=== PATIENT | male | born 1940 | race Caucasian/White ===

== ENCOUNTER → 2016-02-20 | Outpatient (CLI) | payer MEDICARE, BC ==
[2016-02-20 07:21] LABS: Basophils % (A) 1 %; CHCM 33.9; Eosinophils # (A) 0.2 k/uL (0-0.7); Eosinophils % (A) 3 %; HCT 37.1 % (39.0-53.0); HDW 2.48; HGB 12.5 gm/dL (13.0-17.5); Luc # (Auto) 0.31; Luc % (Auto) 4; Lymphocytes # (A) 1.1 k/uL (1.0-4.8); Lymphocytes % (A) 14 %; MCH 31.8 pg (25.0-35.0); MCHC 33.6 g/dL (31.0-37.0); MCV 94.8 fL (80.0-100.0); Mean Platelet Volume 7.1; Monocytes # (A) 1.2 k/uL (0-1.0); Monocytes % (A) 16 %; Neutrophils # (A) 4.7 k/uL (1.3-7.7); Neutrophils % (A) 63 %; RBC 3.91 m/uL (4.30-5.90); WBC 7.5 k/uL (3.8-10.6); WBC (Perox) 7.95
[2016-02-20 07:26] LABS: Anion Gap 9 mmol/L; Blood Urea Nitrogen 32 mg/dL (9-20); Calcium 9.5 mg/dL (8.4-10.2); Carbon Dioxide 33 mmol/L (22-30); Chloride 100 mmol/L (98-107); Glucose 103 mg/dL (74-99); Non-African American GFR(MDRD) 58 (>60 ml/min/1.73 sqM); Potassium 4.7 mmol/L (3.5-5.1); Sodium 142 mmol/L (137-145)
[2016-02-20 07:29] LABS: Partial Thromboplastin Time 22.9 sec (22.0-30.0); Prothrombin Time 10.2 sec (9.0-12.0)
[2016-02-20 07:35] LABS: Appearance,Urine Clear (Clear); Bilirubin,Urine Negative (Negative); Glucose,Urine (UA) Negative (Negative); Ketones,Urine Negative (Negative); Leukocyte Esterase,Urine Small (Negative); Mucus,Urine Occasional /hpf; Nitrite,Urine Negative (Negative); PH, Urine 5.5 (5.0-8.0); Particle Count 3556; Protein,Urine Trace (Negative); Specific Gravity,Urine 1.019 (1.001-1.035); Squamous Epithelial Cell,Urine <1 /hpf (0-4); UA Billing (MACRO vs. MICRO) MICRO; Urobilinogen,Urine <2.0 mg/dL (<2.0); WBC,Urine 3 /hpf (0-5)
== END | disposition home or self-care (01) ==
LOC: LABWHC1 06:44
PROVIDERS: ATTEND Internal Medicine
DX: Z01.812 Encounter for preprocedural laboratory examination (principal); I11.9 Hypertensive heart disease without heart failure; J44.9 Chronic obstructive pulmonary disease, unspecified
CPT/HCPCS: 36415; 80048; 81001; 85025; 85610; 85730

== ENCOUNTER 2016-03-04 17:14 | Emergency (ER) | payer MEDICARE, BC ==
[2016-03-04] MEDS ORDERED: IBUPROFEN IV 600 MG in SODIUM CHLORIDE 0.9% 250 ML IV STA (17:15)
[2016-03-04] MEDS ORDERED: ACETAMINOPHEN TAB 500 MG TAB PO STA (17:15)
--- NOTE | 2016-03-04 17:21 | ED ---
General Adult HPI - General Source: RN notes reviewed <Ulysses Burgos - Last Filed: 03/04/16 19:42> <Ulysses Slater - Last Filed: 03/04/16 20:51> - General Stated complaint: Dehydration Time Seen by Provider: 03/04/16 17:14 - History of Present Illness Initial comments: This is a 75-year-old male who presents to the emergency department because he is weak and somewhat lethargic. Patient states he had surgery on his back on Tuesday discharged on Tuesday and since then he hasn't eaten much or drank much and feels much more lethargic. Patient denies any worsening pain. Patient states his back is sore but he does not consider it to be that painful. Patient does take pain medicines that he was sent home with. Patient denies any chest pain difficulty breathing or shortness of breath. Patient denies knowing that he hasn't any fever or chills. Patient denies headache patient denies numbness weakness. Patient denies any lightheadedness dizziness or near syncopal episode. Patient denies abdominal pain patient denies nausea vomiting diarrhea. Patient denies any dysuria hematuria urinary frequency. Patient states he did have a Kendrick catheter in place when he had a surgery however. She states she did have a flu shot. (Ulysses Burgso) - Related Data Home Medications Medication Instructions Recorded Confirmed Albuterol Sulfate [Proair Hfa] 2 puff INHALATION RT-Q6H PRN 07/09/13 11/08/15 Enalapril [Vasotec] 5 mg PO DAILY 07/09/13 11/08/15 Fluticasone/Salmeterol [Advair 1 puff INHALATION RT-BID 07/09/13 11/08/15 500-50 Diskus] Calcium Carbonate/Vitamin D3 1 tab PO TID 09/08/15 11/08/15 [Calcium 600-Vit D3 200 Tablet] Furosemide 40 mg PO DAILY 09/08/15 11/08/15 Multivitamins, Thera [Multivitamin] 1 tab PO DAILY 09/08/15 11/08/15 [place]-3 Fatty Acids/Fish Oil [Fish 1 cap PO DAILY 09/08/15 11/08/15 Oil 1,000 mg Softgel] Vit C/E/Zn/Coppr/Lutein/Zeaxan 1 cap PO BID 09/08/15 11/08/15 [Preservision Areds 2 Softgel] Gabapentin [Neurontin] 300 - 600 mg PO Q8H PRN 11/08/15 11/08/15 Montelukast [Singulair] 10 mg PO HS 11/08/15 11/08/15 Spironolactone [Aldactone] 25 mg PO BID 11/08/15 11/08/15 Tiotropium 18 Mcg/Puff [Spiriva] 1 cap INHALATION RT-DAILY 11/08/15 11/08/15 oxyCODONE-APAP 10-325MG [Percocet 1 tab PO Q6HR PRN 11/08/15 11/08/15 10-325 mg] predniSONE 20 mg PO DAILY 03/04/16 03/04/16 Allergies Allergy/AdvReac Type Severity Reaction Status Date / Time aspirin Allergy Unknown Verified 03/04/16 17:26 Review of Systems ROS Other: All systems not noted in ROS Statement are negative. <Ulysses Burgos - Last Filed: 03/04/16 19:42> ROS Other: All systems not noted in ROS Statement are negative. <Ulysses Slater - Last Filed: 03/04/16 20:51> ROS Statement: Those systems with pertinent positive or pertinent negative responses have been documented in the HPI. Past Medical History Past Medical History: Asthma, COPD, Eye Disorder, GI Bleed, Hyperlipidemia, Hypertension, Osteoarthritis (OA), Pneumonia, Prostate Disorder Additional Past Medical History / Comment(s): Macular degeneration of the eyes, cataract surgery, osteoarthritis, chronic lower back pain, chronic sinus polyp disease, morbid obesity, obstructive sleep apnea severe with an AHI of 75 and he was given CPAP therapy at a pressure of 11 cm of water. He was in the hospital in September 2015 where he was treated for a right olecranon bursitis, peptic ulcer disease with previous history of GI bleed History of Any Multi-Drug Resistant Organisms: None Reported Past Surgical History: Orthopedic Surgery, Prostate Surgery, Tonsillectomy Additional Past Surgical History / Comment(s): Multiple surgeries for nasal polyps, LEFT KNEE ATRHROSCOPY, left total knee arthroplasty, colonoscopy, growth removed from his thumb, correction of a deviated nasal septum, shots in the eye for macular degeneration., Past Anesthesia/Blood Transfusion Reactions: No Reported Reaction Past Psychological History: No Psychological Hx Reported Additional Psychological History / Comment(s): Patient is and he lives with his for 49 years. 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 Only out of the country to go to [place] years ago. No animal exposures. No experience. No current tobacco or alcohol use Smoking Status: Former smoker Past Alcohol Use History: Occasional Past Drug Use History: None Reported - Past Family History Father Family Medical History: COPD Additional Family Medical History / Comment(s): emphysema Mother Additional Family Medical History / Comment(s): osteoporosis, lived to be 94 Son(s) Family Medical History: Cancer Additional Family Medical History / Comment(s): testicular cancer, mentally challenged <Ulysses Burgos - Last Filed: 03/04/16 19:42> General Exam <Ulysses Burgos - Last Filed: 03/04/16 19:42> General appearance: alert, in no apparent distress, lethargic (But arousable), obese Head exam: Present: atraumatic, normocephalic, normal inspection Eye exam: Present: normal appearance, PERRL, EOMI. Absent: scleral icterus, conjunctival injection, periorbital swelling ENT exam: Present: normal exam, mucous membranes moist Neck exam: Present: normal inspection. Absent: tenderness, meningismus, lymphadenopathy Respiratory exam: Present: normal lung sounds bilaterally, wheezes, decreased breath sounds, prolonged expiratory (Right-sided breathing issues). Absent: respiratory distress, rales, rhonchi, stridor Cardiovascular Exam: Present: normal rhythm, tachycardia, normal heart sounds. Absent: systolic murmur, diastolic murmur, rubs, gallop, clicks GI/Abdominal exam: Present: soft, normal bowel sounds. Absent: distended, tenderness, guarding, rebound, rigid Extremities exam: Present: normal inspection, full ROM, normal capillary refill. Absent: tenderness, pedal edema, joint swelling, calf tenderness Back exam: Present: normal inspection Neurological exam: Present: alert, oriented X3, CN II-XII intact Psychiatric exam: Present: normal affect, normal mood Skin exam: Present: warm, dry, intact, normal color. Absent: rash <Ulysses Slater - Last Filed: 03/04/16 20:51> - General Exam Comments Initial Comments: GENERAL: Patient is well-developed and well-nourished. Patient is nontoxic and well- hydrated and is in mild distress. Patient felt extremely warm psychiatric the patient's temperature was 101.2 ENT: Neck is soft and supple. No significant lymphadenopathy is noted. Oropharynx is clear. Moist mucous membranes. Neck has full range of motion without eliciting any pain. EYES: The sclera were anicteric and conjunctiva were pink and moist. Extraocular movements were intact and pupils were equal round and reactive to light. Eyelids were unremarkable. PULMONARY: Unlabored respirations. Good breath sounds bilaterally. No audible rales rhonchi or wheezing was noted. CARDIOVASCULAR: There is a regular rate and rhythm without any murmurs gallops or rubs. ABDOMEN: Soft and nontender with normal bowel sounds. No palpable organomegaly was noted. There is no palpable pulsatile mass. SKIN: Skin is clear with no lesions or rashes and otherwise unremarkable. Around the incision site on the patient's back appears to be swollen there is a lot of area of ecchymosis in the area has a dark reddish hue to it. NEUROLOGIC: Patient is alert and oriented x3. Cranial nerves II through XII are grossly intact. Motor and sensory are also intact. Normal speech, volume and content. Symmetrical smile. MUSCULOSKELETAL: Normal extremities with adequate strength and full range of motion. No lower extremity swelling or edema. No calf tenderness. LYMPHATICS: No significant lymphadenopathy is noted PSYCHIATRIC: Normal psychiatric evaluation. Normal interpersonal interactions appears functionally intact in deals appropriately with others. No signs of depression. No signs of anxiety. 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 ] Respiratory 18 18 Rate Blood Pressure 118/56 91/44 Blood Pressure 93/51 [Right Arm] O2 Sat by Pulse 94 L 93 L 93 L Oximetry - Reevaluation(s) Reevaluation #1: 03/04/16 20:38 On reassessment patient is complaining of mild shortness of breath pulse ox of 88% area on 4 L, will be given prolonged breathing treatment, patient found to have multifocal pneumonia, we'll treat appropriately with antibiotics, [place] cover for possible postop infection (Ulysses Slater) Reevaluation #2: 03/04/16 20:38 Patient getting adequate fluid boluses in regards to blood pressure fever and septic picture. (Ulysses Slater) Reevaluation #3: 03/04/16 20:49 Spoke with [facility] and regarding transfer, there are exceptpatient transfer (Ulysses Slater) Medical Decision Making - Lab Data Result diagrams: 03/04/16 17:35 03/04/16 17:35 <Ulysses Burgos - Last Filed: 03/04/16 19:42> - Lab Data Result diagrams: 03/04/16 17:35 03/04/16 17:35 - Radiology Data Radiology results: report reviewed (Chest x-ray two-view is positive for multifocal right-sided pneumonia, patient does have CT of lumbar spine which shows no abscess but does show soft tissue cellulitis), image reviewed <Ulysses Slater - Last Filed: 03/04/16 20:51> - Medical Decision Making EKG shows normal sinus rhythm at 90 bpm OK interval is on a 38 QRS 98 QT interval 320 QTC is 410 per patient's EKG shows no ST segment elevation or depression or T-wave abdomen is noted. Dr. Slater will be taking over the care of this patient at 7:30 (Ulysses Burgos) 75 male ER for evaluation. The patient is here for evaluation of multiple complaints stemming from mental status and fever. Patient found to have probable polys source infection versus pneumonia, and cellulitis around wound, patient is a postop patient from [facility] where he had a back surgery by Dr. Culver. Patient was transferred back to the hospital for continued evaluation of fever, patient is adequately resuscitated with appropriate IV antibiotics at this time. Patient given prolonged breathing treatment with improvement in breathing and oxygenation (Ulysses Slater) - Lab Data Lab Results 03/04/16 03/04/16 03/04/16 Range/Units 17:35 17:35 17:35 WBC 15.6 H (3.8-10.6) k/uL RBC 3.09 L (4.30-5.90) m/uL Hgb 9.6 L D (13.0-17.5) gm/dL Hct 28.9 L (39.0-53.0) % MCV 93.6 (80.0-100.0) fL MCH 30.9 (25.0-35.0) pg MCHC 33.0 (31.0-37.0) g/dL RDW 13.8 (11.5-15.5) % Plt Count 235 (150-450) k/uL Neutrophils % 91 % Lymphocytes % 1 % Monocytes % 6 % Eosinophils % 0 % Basophils % 1 % Neutrophils # 14.1 H (1.3-7.7) k/uL Lymphocytes # 0.2 L (1.0-4.8) k/uL Monocytes # 0.9 (0-1.0) k/uL Eosinophils # 0.0 (0-0.7) k/uL Basophils # 0.1 (0-0.2) k/uL PT (9.0-12.0) sec INR (<1.1) APTT (22.0-30.0) sec D-Dimer (<0.60) mg/L FEU Sodium 129 L (137-145) mmol/L Potassium 5.6 H (3.5-5.1) mmol/L Chloride 92 L (98-107) mmol/L Carbon Dioxide 21 L (22-30) mmol/L Anion Gap 16 mmol/L BUN 71 H (9-20) mg/dL Creatinine 3.40 H (0.66-1.25) mg/dL Est GFR (MDRD) Af Amer 21 (>60 ml/min/1.73 sqM) Est GFR (MDRD) Non-Af 18 (>60 ml/min/1.73 sqM) Glucose 144 H (74-99) mg/dL Plasma Lactic Acid Cash (0.7-2.0) mmol/L Calcium 11.3 H (8.4-10.2) mg/dL Total Bilirubin 0.5 (0.2-1.3) mg/dL AST 136 H (17-59) U/L ALT 50 (21-72) U/L Alkaline Phosphatase 72 (38-126) U/L Total Creatine Kinase 3967 H (55-170) U/L CK-MB (CK-2) 15.1 H* (0.0-2.4) ng/mL CK-MB (CK-2) Rel Index Troponin I 0.043 H* (0.000-0.034) ng/mL Total Protein 6.4 (6.3-8.2) g/dL Albumin 3.6 (3.5-5.0) g/dL Cortisol 42 ug/dL Urine Color Urine Appearance (Clear) Urine pH (5.0-8.0) Ur Specific [place] (1.001-1.035) Urine Protein (Negative) Urine Glucose (UA) (Negative) Urine Ketones (Negative) Urine Blood (Negative) Urine Nitrate (Negative) Urine Bilirubin (Negative) Urine Urobilinogen (<2.0) mg/dL Ur Leukocyte Esterase (Negative) Urine RBC (0-5) /hpf Urine WBC (0-5) /hpf Ur Squamous Epith Cells (0-4) /hpf Amorphous Sediment (None) /hpf Urine Bacteria (None) /hpf Hyaline Casts (0-2) /lpf Urine Mucus (None) /hpf Influenza Type A RNA (Not Detectd) Influenza Type B (PCR) (Not Detectd) 03/04/16 03/04/16 03/04/16 Range/Units 17:35 18:13 18:20 WBC (3.8-10.6) k/uL RBC (4.30-5.90) m/uL Hgb (13.0-17.5) gm/dL Hct (39.0-53.0) % MCV (80.0-100.0) fL MCH (25.0-35.0) pg MCHC (31.0-37.0) g/dL RDW (11.5-15.5) % Plt Count (150-450) k/uL Neutrophils % % Lymphocytes % % Monocytes % % Eosinophils % % Basophils % % Neutrophils # (1.3-7.7) k/uL Lymphocytes # (1.0-4.8) k/uL Monocytes # (0-1.0) k/uL Eosinophils # (0-0.7) k/uL Basophils # (0-0.2) k/uL PT 10.5 (9.0-12.0) sec INR 1.0 (<1.1) APTT 25.7 (22.0-30.0) sec D-Dimer 2.30 H (<0.60) mg/L FEU Sodium (137-145) mmol/L Potassium (3.5-5.1) mmol/L Chloride (98-107) mmol/L Carbon Dioxide (22-30) mmol/L Anion Gap mmol/L BUN (9-20) mg/dL Creatinine (0.66-1.25) mg/dL Est GFR (MDRD) Af Amer (>60 ml/min/1.73 sqM) Est GFR (MDRD) Non-Af (>60 ml/min/1.73 sqM) Glucose (74-99) mg/dL Plasma Lactic Acid Cash 2.8 H* (0.7-2.0) mmol/L Calcium (8.4-10.2) mg/dL Total Bilirubin (0.2-1.3) mg/dL AST (17-59) U/L ALT (21-72) U/L Alkaline Phosphatase (38-126) U/L Total Creatine Kinase (55-170) U/L CK-MB (CK-2) (0.0-2.4) ng/mL CK-MB (CK-2) Rel Index Troponin I (0.000-0.034) ng/mL Total Protein (6.3-8.2) g/dL Albumin (3.5-5.0) g/dL Cortisol ug/dL Urine Color Yellow Urine Appearance Cloudy (Clear) Urine pH 5.0 (5.0-8.0) Ur Specific [place] 1.016 (1.001-1.035) Urine Protein 1+ H (Negative) Urine Glucose (UA) Negative (Negative) Urine Ketones Negative (Negative) Urine Blood Moderate H (Negative) Urine Nitrate Negative (Negative) Urine Bilirubin Negative (Negative) Urine Urobilinogen <2.0 (<2.0) mg/dL Ur Leukocyte Esterase Negative (Negative) Urine RBC 6 H (0-5) /hpf Urine WBC 3 (0-5) /hpf Ur Squamous Epith Cells <1 (0-4) /hpf Amorphous Sediment Few H (None) /hpf Urine Bacteria Rare H (None) /hpf Hyaline Casts 114 H (0-2) /lpf Urine Mucus Rare H (None) /hpf Influenza Type A RNA (Not Detectd) Influenza Type B (PCR) (Not Detectd) 03/04/16 Range/Units 18:20 WBC (3.8-10.6) k/uL RBC (4.30-5.90) m/uL Hgb (13.0-17.5) gm/dL Hct (39.0-53.0) % MCV (80.0-100.0) fL MCH (25.0-35.0) pg MCHC (31.0-37.0) g/dL RDW (11.5-15.5) % Plt Count (150-450) k/uL Neutrophils % % Lymphocytes % % Monocytes % % Eosinophils % % Basophils % % Neutrophils # (1.3-7.7) k/uL Lymphocytes # (1.0-4.8) k/uL Monocytes # (0-1.0) k/uL Eosinophils # (0-0.7) k/uL Basophils # (0-0.2) k/uL PT (9.0-12.0) sec INR (<1.1) APTT (22.0-30.0) sec D-Dimer (<0.60) mg/L FEU Sodium (137-145) mmol/L Potassium (3.5-5.1) mmol/L Chloride (98-107) mmol/L Carbon Dioxide (22-30) mmol/L Anion Gap mmol/L BUN (9-20) mg/dL Creatinine (0.66-1.25) mg/dL Est GFR (MDRD) Af Amer (>60 ml/min/1.73 sqM) Est GFR (MDRD) Non-Af (>60 ml/min/1.73 sqM) Glucose (74-99) mg/dL Plasma Lactic Acid Cash (0.7-2.0) mmol/L Calcium (8.4-10.2) mg/dL Total Bilirubin (0.2-1.3) mg/dL AST (17-59) U/L ALT (21-72) U/L Alkaline Phosphatase (38-126) U/L Total Creatine Kinase (55-170) U/L CK-MB (CK-2) (0.0-2.4) ng/mL CK-MB (CK-2) Rel Index Troponin I (0.000-0.034) ng/mL Total Protein (6.3-8.2) g/dL Albumin (3.5-5.0) g/dL Cortisol ug/dL Urine Color Urine Appearance (Clear) Urine pH (5.0-8.0) Ur Specific [place] (1.001-1.035) Urine Protein (Negative) Urine Glucose (UA) (Negative) Urine Ketones (Negative) Urine Blood (Negative) Urine Nitrate (Negative) Urine Bilirubin (Negative) Urine Urobilinogen (<2.0) mg/dL Ur Leukocyte Esterase (Negative) Urine RBC (0-5) /hpf Urine WBC (0-5) /hpf Ur Squamous Epith Cells (0-4) /hpf Amorphous Sediment (None) /hpf Urine Bacteria (None) /hpf Hyaline Casts (0-2) /lpf Urine Mucus (None) /hpf Influenza Type A RNA Not Detected (Not Detectd) Influenza Type B (PCR) Not Detected (Not Detectd) Critical Care Time Critical Care Time: Yes Total Critical Care Time: 31 <Ulysses Slater - Last Filed: 03/04/16 20:51> Disposition <Ulysses Burgos - Last Filed: 03/04/16 19:42> - Out of Hospital Transfer - Req. Specs Out of Hospital Transfer - Requested Specifics: Other Emergency Center ( [facility]) <Ulysses Slater - Last Filed: 03/04/16 20:51> Clinical Impression: Altered mental status, Postoperative fever, Delirium due to general medical condition, Nosocomial pneumonia, Rhabdomyolysis, Dehydration, Anemia Disposition: OTHER INSTITUTION NOT DEFINED Condition: Serious Referrals: Al Ramirez MD [Primary Care Provider] - 1-2 days
[2016-03-04 17:58] LABS: Basophils # (A) 0.1 k/uL (0-0.2); Basophils % (A) 1 %; CH 32.2; CHCM 34.6; Eosinophils % (A) 0 %; HCT 28.9 % (39.0-53.0); HDW 2.45; Luc % (Auto) 1; Lymphocytes # (A) 0.2 k/uL (1.0-4.8); Lymphocytes % (A) 1 %; MCH 30.9 pg (25.0-35.0); MCV 93.6 fL (80.0-100.0); Mean Platelet Volume 7.9; Monocytes # (A) 0.9 k/uL (0-1.0); Monocytes % (A) 6 %; Neutrophils # (A) 14.1 k/uL (1.3-7.7); Neutrophils % (A) 91 %; RBC 3.09 m/uL (4.30-5.90); RDW 13.8 % (11.5-15.5); WBC 15.6 k/uL (3.8-10.6); WBC (Perox) 16.42
[2016-03-04 18:00] LABS: HGB 9.6 gm/dL (13.0-17.5)
[2016-03-04 18:07] LABS: Calcium 11.3 mg/dL (8.4-10.2); Potassium 5.6 mmol/L (3.5-5.1); Total Bilirubin 0.5 mg/dL (0.2-1.3); Total Protein 6.4 g/dL (6.3-8.2)
[2016-03-04] MEDS: SODIUM CHLORIDE 0.9% 500 ML IV SCH ×2 (18:15→19:53)
[2016-03-04 18:26] LABS: Creatine Kinase MB 15.1 ng/mL (0.0-2.4); Troponin I 0.043 ng/mL (0.000-0.034)
[2016-03-04 18:37] LABS: Partial Thromboplastin Time 25.7 sec (22.0-30.0); Prothrombin Time 10.5 sec (9.0-12.0)
[2016-03-04 19:00] LABS: Amorphous Sediment,Urine Few /hpf; Appearance,Urine Cloudy (Clear); Bacteria,Urine Rare /hpf; Bilirubin,Urine Negative (Negative); Glucose,Urine (UA) Negative (Negative); Ketones,Urine Negative (Negative); Leukocyte Esterase,Urine Negative (Negative); Mucus,Urine Rare /hpf; Nitrite,Urine Negative (Negative); Particle Count 24123; Protein,Urine 1+ (Negative); RBC,Urine 6 /hpf (0-5); Specific Gravity,Urine 1.016 (1.001-1.035); Squamous Epithelial Cell,Urine <1 /hpf (0-4); UA Billing (MACRO vs. MICRO) MICRO; Urobilinogen,Urine <2.0 mg/dL (<2.0); WBC,Urine 3 /hpf (0-5)
[2016-03-04] MEDS ORDERED: SODIUM CHLORIDE 0.9% 1,000 ML IV ONE (19:05)
[2016-03-04] MEDS ORDERED: PIPERACILLIN-TAZOBACTAM 3.375 GM in DEXTROSE/WATER 1 50ML.BAG IVPB STA (19:23)
[2016-03-04] MEDS ORDERED: VANCOMYCIN 1,500 MG in SODIUM CHLORIDE 0.9% 250 ML IVPB STA (20:00)
[2016-03-04] MEDS ORDERED: IV VANCOMYCIN PER PHARMACY 1 EACH MISC MISCELLANE PRN (20:00)
--- NOTE | 2016-03-04 20:17 | XR ---
EXAMINATION TYPE: XR chest 2V DATE OF EXAM: 03/04/2016 7:31 PM COMPARISON: January 27, 2015 HISTORY: Fever and weakness TECHNIQUE: Frontal and lateral views of the chest are obtained. FINDINGS: There is consolidation throughout the right lung parenchyma, consistent with right-sided m ultifocal pneumonia. Remainder of the lungs appear well-expanded and clear bilaterally. The pleural spaces are negative. The cardiomediastinal silhouette and bones and soft tissues are unremarkable. IMPRESSION: FINDINGS CONSISTENT WITH MULTIFOCAL BRONCHOPNEUMONIA. Would advise six-week follow-up radiographs to prove resolution.
[2016-03-04] MEDS ORDERED: IPRATROPIUM-ALBUTEROL 3 ML NEB INHALATION STA (20:29)
[2016-03-04 20:30] VITALS: TEMP 97.1
[2016-03-04] MEDS ORDERED: SODIUM CHLORIDE 0.9% 1,000 ML IV STA (20:30)
[2016-03-04] MEDS ORDERED: SODIUM CHLORIDE 0.9% 500 ML IV STA (20:30)
[2016-03-04] MEDS ORDERED: SODIUM CHLORIDE 0.9% 2,000 ML IV STA (20:30)
--- NOTE | 2016-03-04 20:47 | CT ---
EXAMINATION TYPE: CT lumbar spine wo con DATE OF EXAM: 03/04/2016 7:54 PM COMPARISON: Prior abdominal pelvic CT November 01, 2015 HISTORY: Lumbar surgery 3 days ago. Fever and pain. CT DLP: 2506.60 mGycm. Automated exposure control for dose reduction was used. TECHNIQUE: Unenhanced CT of the lumbar spine was performed. Bone and soft tissue window settings are submitted as well as coronal and sagittal reconstructions. FINDINGS: THIS REPORT PROCEEDS WITH FINDINGS FROM [id number]: Extending from the dorsal skin surface to the spine is extensive soft tissue swelling and numerous sc attered gas bubbles within the soft tissues. At L3-4, there are 2 left anterior epidural tiny gas bubbles (1-2 mm) and there is a gas bubble anter ior to the exiting left L3 nerve root. The bilateral L4-5 trans pedicle orthopedic hardware appears in anatomic position and is unremarkable . There are no fractures or focal skeletal lesions. There is approximately 3 mm anterior listhesis of L4 upon L5; no other malalignment. There is vacuum disc phenomenon at the L3-4 disc interspace, and the T12-L1 disc interspace. At the posterior lateral margin of the right psoas muscle there are two 2 x 1 cm gas bubbles. The rig ht psoas muscle has the same volume as the left psoas muscle, and the margins of the psoas muscles wi th the retroperitoneal adipose are smoothly defined. There is moderate urinary bladder distention noted, but there is no hydronephrosis or hydroureter. IMPRESSION: 1. SUBCUTANEOUS AND DORSAL SPINAL MUSCULATURE SOFT TISSUE SWELLING AND SUBCUTANEOUS EMPHYSEMA. 2. TWO TINY ANTERIOR EPIDURAL GAS BUBBLES. 3. 2 X 1 CM GAS BUBBLES RELATED TO THE RIGHT PSOAS.
[2016-03-04 21:04] VITALS: RESP 20
[2016-03-04 21:08] VITALS: BP 105/56
[2016-03-04 21:16] VITALS: PULSE 90
== END 2016-03-04 21:20 | disposition other institution (70) ==
LOC: EC 17:14
DX: J95.89 Other postprocedural complications and disorders of respiratory system, not elsewhere classified (principal); Y83.8 Other surgical procedures as the cause of abnormal reaction of the patient, or of later complication, without mention of misadventure at the time of the procedure; Y95 Nosocomial condition; M62.82 Rhabdomyolysis; E86.0 Dehydration; D64.9 Anemia, unspecified; F05 Delirium due to known physiological condition; J45.909 Unspecified asthma, uncomplicated; I10 Essential (primary) hypertension; E78.5 Hyperlipidemia, unspecified; J44.9 Chronic obstructive pulmonary disease, unspecified; Z79.899 Other long term (current) drug therapy; Z79.51 Long term (current) use of inhaled steroids; Z79.52 Long term (current) use of systemic steroids; Z88.6 Allergy status to analgesic agent; Z87.891 Personal history of nicotine dependence
CPT/HCPCS: 96365 ×2; 96367 ×2; 96361 ×2; 99291 ×2; 99283; 94640; 93005; 85379; 36415; 80053; 82533; 82550; 82553; 83605; 84484; 85025; 85610; 85730; 81001; 87040; 87086; 87502; 71020; 72131; J3370; J2543

== ENCOUNTER → 2016-06-26 | Outpatient (CLI) | payer MEDICARE, BC ==
[2016-06-26 08:14] LABS: CH 32.1; CHCM 34.1; HDW 2.56; HGB 12.6 gm/dL (13.0-17.5); MCH 32.2 pg (25.0-35.0); MCV 94.7 fL (80.0-100.0); Mean Platelet Volume 6.8; RBC 3.91 m/uL (4.30-5.90); RDW 14.5 % (11.5-15.5); WBC 7.7 k/uL (3.8-10.6)
[2016-06-26 11:49] LABS: ALT 46 U/L (21-72); AST 21 U/L (17-59); Alkaline Phosphatase 52 U/L (38-126); Anion Gap 10 mmol/L; Blood Urea Nitrogen 25 mg/dL (9-20); Calcium 9.4 mg/dL (8.4-10.2); Carbon Dioxide 31 mmol/L (22-30); Chloride 98 mmol/L (98-107); Cholesterol 191 mg/dL (<200); Glucose 116 mg/dL (74-99); HDL Cholesterol 87 mg/dL (40-60); Non-African American GFR(MDRD) >60 (>60 ml/min/1.73 sqM); Potassium 4.4 mmol/L (3.5-5.1); Sodium 139 mmol/L (137-145); Total Bilirubin 0.3 mg/dL (0.2-1.3); Total Protein 6.5 g/dL (6.3-8.2); Triglycerides 174 mg/dL (<150)
[2016-06-26 12:17] LABS: Prostate Specific Antigen 0.63 ng/mL (0.00-4.00)
== END | disposition home or self-care (01) ==
LOC: LABWHC1 07:31
PROVIDERS: ATTEND Internal Medicine
DX: Z00.00 Encounter for general adult medical examination without abnormal findings (principal); I11.9 Hypertensive heart disease without heart failure; J44.9 Chronic obstructive pulmonary disease, unspecified; E78.2 Mixed hyperlipidemia; K21.0 Gastro-esophageal reflux disease with esophagitis; N40.1 Benign prostatic hyperplasia with lower urinary tract symptoms
CPT/HCPCS: 36415; 80053; 80061; 84153; 84439; 84443; 85027

== ENCOUNTER 2016-07-02 04:30 | Inpatient (IN) | payer MEDICARE, BC ==
[2016-07-02] MEDS ORDERED: ACETAMINOPHEN TAB 325 MG TAB PO STA (04:56)
[2016-07-02 05:08] LABS: Basophils % (A) 0 %; CH 32.6; CHCM 35.8; Eosinophils # (A) 0.1 k/uL (0-0.7); Eosinophils % (A) 1 %; HCT 35.4 % (39.0-53.0); HGB 12.6 gm/dL (13.0-17.5); Luc # (Auto) 0.27; Luc % (Auto) 2; Lymphocytes % (A) 7 %; MCH 32.4 pg (25.0-35.0); MCHC 35.5 g/dL (31.0-37.0); MCV 91.2 fL (80.0-100.0); Mean Platelet Volume 6.5; Monocytes % (A) 7 %; Neutrophils # (A) 12.1 k/uL (1.3-7.7); Neutrophils % (A) 83 %; RBC 3.88 m/uL (4.30-5.90); RDW 14.2 % (11.5-15.5); WBC 14.5 k/uL (3.8-10.6); WBC (Perox) 14.61
[2016-07-02] MEDS: SODIUM CHLORIDE 0.9% 500 ML IV SCH ×2 (05:14→05:15)
[2016-07-02 05:17] LABS: Partial Thromboplastin Time 22.7 sec (22.0-30.0)
[2016-07-02 05:22] LABS: ALT 40 U/L (21-72); AST 22 U/L (17-59); Alkaline Phosphatase 58 U/L (38-126); Anion Gap 13 mmol/L; Blood Urea Nitrogen 25 mg/dL (9-20); Calcium 9.7 mg/dL (8.4-10.2); Carbon Dioxide 28 mmol/L (22-30); Chloride 95 mmol/L (98-107); Glucose 122 mg/dL (74-99); Non-African American GFR(MDRD) >60 (>60 ml/min/1.73 sqM); Potassium 4.3 mmol/L (3.5-5.1); Sodium 136 mmol/L (137-145); Total Bilirubin 0.5 mg/dL (0.2-1.3); Total Protein 6.9 g/dL (6.3-8.2)
--- NOTE | 2016-07-02 05:41 | XR ---
EXAM: XR Chest, 1 View CLINICAL HISTORY: Reason: Fever TECHNIQUE: Frontal view of the chest. COMPARISON: 06/02/16 FINDINGS: Lungs: Low lung volumes. Mild bibasilar atelectasis and chronic changes. Query more focal airspace disease in the right lung base versus accentuated appearance of markings/atelectasis due to low lung volumes and mild patient rotation. Pleural space: Unremarkable. No pneumothorax. Heart: Unremarkable. No cardiomegaly. Mediastinum: Unremarkable. Bones/joints: Unremarkable. IMPRESSION: 1. Low lung volumes. Mild bibasilar atelectasis and chronic changes. 2. Query mild focal airspace disease in the right lung base as described above.
[2016-07-02] MEDS ORDERED: PIPERACILLIN-TAZOBACTAM 3.375 GM in DEXTROSE/WATER 1 50ML.BAG IVPB STA (06:54)
[2016-07-02] MEDS ORDERED: LEVOFLOXACIN 750MG-D5W PMX 750 MG in DEXTROSE/WATER 1 150ML.BAG IVPB STA (06:54)
[2016-07-02] MEDS ORDERED: GABAPENTIN 300 MG CAP PO PRN (06:57)
[2016-07-02] MEDS ORDERED: ALBUTEROL NEBULIZED 2.5 MG/3 ML INHALATION PRN (06:57)
--- NOTE | 2016-07-02 07:31 | ED ---
Fever HPI - General Chief Complaint: Fever Stated Complaint: Fever Time Seen by Provider: 07/02/16 04:56 Source: patient, family () Mode of arrival: ambulatory Limitations: no limitations - History of Present Illness Initial Comments: This patient is 75-year-old man who presents after he developed chills tonight. The patient's also states that for the past couple of days he has had a cough and that he has been less active and having some generalized fatigue and weakness. Patient denies chest pain, dyspnea, palpitations or syncope. No change in urination or bowel movements, including no vomiting or diarrhea, no melena or hematochezia, no urinary frequency or dysuria. The patient's states that the last time he seemed like this he ended up having a pneumonia and sepsis. MD Complaint: fever, weakness -: days(s) Temperature Source: subjective Associated Symptoms: chills, cough - Related Data Home Medications Medication Instructions Recorded Confirmed Albuterol Sulfate [Proair Hfa] 2 puff INHALATION RT-Q6H PRN 07/09/13 07/02/16 Enalapril [Vasotec] 5 mg PO DAILY 07/09/13 07/02/16 Fluticasone/Salmeterol [Advair 1 puff INHALATION RT-BID 07/09/13 07/02/16 500-50 Diskus] Calcium Carbonate/Vitamin D3 1 tab PO TID 09/08/15 07/02/16 [Calcium 600-Vit D3 200 Tablet] Furosemide 40 mg PO DAILY 09/08/15 07/02/16 Multivitamins, Thera [Multivitamin 1 tab PO DAILY 09/08/15 07/02/16 (formulary)] [place]-3 Fatty Acids/Fish Oil [Fish 1 cap PO DAILY 09/08/15 07/02/16 Oil 1,000 mg Softgel] Vit C/E/Zn/Coppr/Lutein/Zeaxan 1 cap PO BID 09/08/15 07/02/16 [Preservision Areds 2 Softgel] Gabapentin [Neurontin] 600 mg PO BID 11/08/15 07/02/16 Montelukast [Singulair] 10 mg PO DAILY 11/08/15 07/02/16 Spironolactone [Aldactone] 25 mg PO BID 10/01/16 05/26/17 Tiotropium 18 Mcg/Puff [Spiriva] 1 cap INHALATION RT-DAILY 11/08/15 07/02/16 oxyCODONE-APAP 10-325MG [Percocet 1 tab PO Q6HR PRN 11/08/15 07/02/16 10-325 mg] Promethaz-Cod 6.25-10 mg/5 ml 5 ml PO Q6HR PRN 07/02/16 07/02/16 [Phenergan with Codeine] predniSONE 10 mg PO DAILY 07/02/16 07/02/16 Previous Rx's Medication Instructions Recorded Albuterol Inhaler [Ventolin Hfa 1 - 2 puff INHALATION Q6HR PRN #30 07/04/16 Inhaler] inhaler Levofloxacin [Levaquin] 750 mg PO QID #28 tab 07/04/16 oxyCODONE HCL/ACETAMINOPHEN 1 tab PO Q8HR PRN #60 tab 07/04/16 [Percocet 10-325 mg] predniSONE 10 mg PO DAILY #90 tab 07/04/16 Allergies Allergy/AdvReac Type Severity Reaction Status Date / Time aspirin Allergy Unknown Verified 07/02/16 07:54 cephalexin Allergy Unknown Verified 07/02/16 07:54 Review of Systems ROS Statement: Those systems with pertinent positive or pertinent negative responses have been documented in the HPI. ROS Other: All systems not noted in ROS Statement are negative. Limitations: ROS unobtainable due to patients medical condition Constitutional: Reports: fever, chills Respiratory: Reports: cough. Denies: dyspnea, hemoptysis Cardiovascular: Denies: chest pain, palpitations, orthopnea, edema, syncope Gastrointestinal: Denies: abdominal pain, nausea, vomiting, diarrhea, melena, hematochezia Genitourinary: Denies: dysuria, hematuria Musculoskeletal: Denies: back pain Skin: Denies: rash Neurological: Reports: weakness (Generalized). Denies: headache, numbness, paresthesias Past Medical History Past Medical History: Asthma, COPD, Eye Disorder, GI Bleed, Hyperlipidemia, Hypertension, Osteoarthritis (OA), Pneumonia, Prostate Disorder Additional Past Medical History / Comment(s): Macular degeneration of the eyes, cataract surgery, osteoarthritis, chronic lower back pain, chronic sinus polyp disease, morbid obesity, obstructive sleep apnea severe with an AHI of 75 and he was given CPAP therapy at a pressure of 11 cm of water. He was in the hospital in September 2015 where he was treated for a right olecranon bursitis, peptic ulcer disease with previous history of GI bleed History of Any Multi-Drug Resistant Organisms: None Reported Past Surgical History: Orthopedic Surgery, Prostate Surgery, Tonsillectomy Additional Past Surgical History / Comment(s): Multiple surgeries for nasal polyps, LEFT KNEE ATRHROSCOPY, left total knee arthroplasty, colonoscopy, growth removed from his thumb, correction of a deviated nasal septum, shots in the eye for macular degeneration., Past Anesthesia/Blood Transfusion Reactions: No Reported Reaction Past Psychological History: No Psychological Hx Reported Additional Psychological History / Comment(s): Patient is and he lives with his for 49 years. 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 Only out of the country to go to [place] years ago. No animal exposures. No experience. No current tobacco or alcohol use Smoking Status: Former smoker Past Alcohol Use History: Occasional Past Drug Use History: None Reported - Past Family History Father Family Medical History: COPD Additional Family Medical History / Comment(s): emphysema Mother Additional Family Medical History / Comment(s): osteoporosis, lived to be 94 Son(s) Family Medical History: Cancer Additional Family Medical History / Comment(s): testicular cancer, mentally challenged General Exam Limitations: no limitations General appearance: alert, in no apparent distress, obese Head exam: Present: atraumatic, normocephalic Eye exam: Present: normal appearance. Absent: scleral icterus, conjunctival injection ENT exam: Present: mucous membranes dry Neck exam: Present: normal inspection, full ROM Respiratory exam: Present: rales (Right base), rhonchi. Absent: respiratory distress, wheezes, stridor, accessory muscle use, decreased breath sounds Cardiovascular Exam: Present: normal rhythm, tachycardia, systolic murmur ( Grade 16 systolic ejection murmur). Absent: diastolic murmur, rubs, gallop GI/Abdominal exam: Present: soft. Absent: distended, tenderness, guarding, rebound, mass Extremities exam: Present: normal inspection, normal capillary refill, pedal edema (Trace edema at the ankles bilaterally). Absent: calf tenderness Back exam: Absent: CVA tenderness (R), CVA tenderness (L) Neurological exam: Present: alert Skin exam: Present: warm, dry, intact, normal color. Absent: rash Course Vital Signs 07/02/16 07/02/16 07/02/16 04:34 05:22 06:05 Temperature 101.4 F H 101.4 F H Pulse Rate 122 H 99 Pulse Rate [ Pulse Oximetery ] Respiratory 20 18 Rate Blood Pressure 119/58 101/65 Blood Pressure [Left Arm] O2 Sat by Pulse 86 L 93 L 92 L Oximetry 07/02/16 07/02/16 07/02/16 06:51 07:09 07:54 Temperature 98.9 F 98.7 F Pulse Rate 98 96 90 Pulse Rate [ Pulse Oximetery ] Respiratory 18 18 20 Rate Blood Pressure 129/67 103/63 108/65 Blood Pressure [Left Arm] O2 Sat by Pulse 92 L 92 L 94 L Oximetry 07/02/16 07:59 Temperature 98.2 F Pulse Rate Pulse Rate [ 90 Pulse Oximetery ] Respiratory 18 Rate Blood Pressure Blood Pressure 109/63 [Left Arm] O2 Sat by Pulse 91 L Oximetry Medical Decision Making - Lab Data Result diagrams: 07/02/16 04:35 07/02/16 04:35 Lab Results 07/02/16 07/02/16 07/02/16 Range/Units 04:35 04:35 04:35 WBC 14.5 H (3.8-10.6) k/uL RBC 3.88 L (4.30-5.90) m/uL Hgb 12.6 L (13.0-17.5) gm/dL Hct 35.4 L (39.0-53.0) % MCV 91.2 (80.0-100.0) fL MCH 32.4 (25.0-35.0) pg MCHC 35.5 (31.0-37.0) g/dL RDW 14.2 (11.5-15.5) % Plt Count 218 (150-450) k/uL Neutrophils % 83 % Lymphocytes % 7 % Monocytes % 7 % Eosinophils % 1 % Basophils % 0 % Neutrophils # 12.1 H (1.3-7.7) k/uL Lymphocytes # 1.0 (1.0-4.8) k/uL Monocytes # 1.0 (0-1.0) k/uL Eosinophils # 0.1 (0-0.7) k/uL Basophils # 0.0 (0-0.2) k/uL PT (9.0-12.0) sec INR (<1.1) APTT (22.0-30.0) sec Sodium 136 L (137-145) mmol/L Potassium 4.3 (3.5-5.1) mmol/L Chloride 95 L (98-107) mmol/L Carbon Dioxide 28 (22-30) mmol/L Anion Gap 13 mmol/L BUN 25 H (9-20) mg/dL Creatinine 1.10 (0.66-1.25) mg/dL Est GFR (MDRD) Af Amer >60 (>60 ml/min/1.73 sqM) Est GFR (MDRD) Non-Af >60 (>60 ml/min/1.73 sqM) Glucose 122 H (74-99) mg/dL Estimated Ave Glu mg/dL mg/dL Hemoglobin A1c (4.2-6.1) % Plasma Lactic Acid Cash 2.8 H* (0.7-2.0) mmol/L Calcium 9.7 (8.4-10.2) mg/dL Total Bilirubin 0.5 (0.2-1.3) mg/dL AST 22 (17-59) U/L ALT 40 (21-72) U/L Alkaline Phosphatase 58 (38-126) U/L Troponin I (0.000-0.034) ng/mL Total Protein 6.9 (6.3-8.2) g/dL Albumin 4.3 (3.5-5.0) g/dL 07/02/16 07/02/16 07/02/16 Range/Units 04:35 04:35 04:35 WBC (3.8-10.6) k/uL RBC (4.30-5.90) m/uL Hgb (13.0-17.5) gm/dL Hct (39.0-53.0) % MCV (80.0-100.0) fL MCH (25.0-35.0) pg MCHC (31.0-37.0) g/dL RDW (11.5-15.5) % Plt Count (150-450) k/uL Neutrophils % % Lymphocytes % % Monocytes % % Eosinophils % % Basophils % % Neutrophils # (1.3-7.7) k/uL Lymphocytes # (1.0-4.8) k/uL Monocytes # (0-1.0) k/uL Eosinophils # (0-0.7) k/uL Basophils # (0-0.2) k/uL PT 10.0 (9.0-12.0) sec INR 1.0 (<1.1) APTT 22.7 (22.0-30.0) sec Sodium (137-145) mmol/L Potassium (3.5-5.1) mmol/L Chloride (98-107) mmol/L Carbon Dioxide (22-30) mmol/L Anion Gap mmol/L BUN (9-20) mg/dL Creatinine (0.66-1.25) mg/dL Est GFR (MDRD) Af Amer (>60 ml/min/1.73 sqM) Est GFR (MDRD) Non-Af (>60 ml/min/1.73 sqM) Glucose (74-99) mg/dL Estimated Ave Glu mg/dL 140 mg/dL Hemoglobin A1c 6.5 H (4.2-6.1) % Plasma Lactic Acid Cash (0.7-2.0) mmol/L Calcium (8.4-10.2) mg/dL Total Bilirubin (0.2-1.3) mg/dL AST (17-59) U/L ALT (21-72) U/L Alkaline Phosphatase (38-126) U/L Troponin I <0.012 (0.000-0.034) ng/mL Total Protein (6.3-8.2) g/dL Albumin (3.5-5.0) g/dL Critical Care Time Critical Care Time: Yes (35 minutes) Disposition Clinical Impression: Sepsis, Pneumonia Disposition: ADMITTED IP TO THIS HOSP Condition: Serious
[2016-07-02 08:51] VITALS: BMI 31.4
[2016-07-02] MEDS ORDERED: predniSONE 20 MG TAB PO SCH (09:00)
[2016-07-02] MEDS ORDERED: NON-FORMULARY DRUG (Omega-3 Fatty Acids/Fish Oil [Fish Oil 1,000 Mg Softgel] 1 CAP) PO SCH (09:00)
[2016-07-02] MEDS: methylPREDNISolone SOD SUCCI 40 MG/ML 1 ML VIAL IV SCH ×2 (10:20→15:55)
[2016-07-02] MEDS: MULTIVITAMINS, THERA 1 EACH TAB PO SCH (10:21)
[2016-07-02] MEDS: FAMOTIDINE 20 MG/2 ML VIAL IV SCH ×2 (10:21→21:48)
[2016-07-02] MEDS: LISINOPRIL 10 MG TAB PO SCH (10:21)
[2016-07-02] MEDS: CALCIUM CARB-VIT D 500MG-200UN 1 EACH TAB PO SCH ×3 (10:21→21:27)
[2016-07-02] MEDS: SPIRONOLACTONE 25 MG TAB PO SCH ×2 (10:21→15:53)
[2016-07-02 11:42] LABS: Glucose,Whole Blood 142 mg/dL (75-99)
[2016-07-02] MEDS: SYMBICORT 160-4.5 MCG INHALER INHALATION SCH ×2 (11:48→20:29)
[2016-07-02] MEDS: TIOTROPIUM 18 MCG/PUFF INHALER INHALATION SCH (11:49)
[2016-07-02 11:58] LABS: Appearance,Urine Clear (Clear); Bilirubin,Urine Negative (Negative); Glucose,Urine (UA) Negative (Negative); Ketones,Urine Negative (Negative); Leukocyte Esterase,Urine Small (Negative); Nitrite,Urine Negative (Negative); PH, Urine 6.5 (5.0-8.0); Particle Count 913; Protein,Urine Trace (Negative); Specific Gravity,Urine 1.017 (1.001-1.035); UA Billing (MACRO vs. MICRO) MICRO; Urobilinogen,Urine <2.0 mg/dL (<2.0); WBC,Urine 3 /hpf (0-5)
[2016-07-02 12:26] LABS: Hemoglobin A1C 6.5 % (4.2-6.1)
[2016-07-02] MEDS: GABAPENTIN 300 MG CAP PO SCH ×2 (13:10→21:27)
[2016-07-02] MEDS: INSULIN LISPRO (humaLOG) 300 UNIT/3 ML VIAL SQ SCH ×3 (13:10→21:27)
--- NOTE | 2016-07-02 13:43 | P.CNPUL ---
History of Present Illness Consult date: 07/02/16 Requesting physician: Al Ramirez Reason for consult: asthma, pneumonia Chief complaint: Fever chills and cough History of present illness: This is a 75-year-old white male quite familiar to my service, patient is known to have severe persistent asthma, prednisone dependent, history of obstructive sleep apnea syndrome, obesity, chronic back pain, severe osteoarthritis, patient had a recent episode of Pseudomonas pneumonia following orthopedic surgery done recently at [facility]. Patient was treated for a long time , he saw me in the office for follow-up, and I increased his steroids dose/ prednisone, I also treated the patient for a longer period of time with Levaquin. His last visit about a week ago, patient was doing quite well, and asymptomatic. I have even recommended cutting down the prednisone to his maintenance dose of 10 mg daily. Patient is now on 20 mg being tapered. At any rate patient has been complaining for the last 2 days of fever or cough and congestion as well as chills. Wheezing and shortness of breath. Presented to the ER with those symptoms, and he was noted to be febrile. He had leukocytosis , and his chest x-ray showed a right lower lobe limited infiltrate. Hence the patient was admitted with the impression of acute right lower lobe pneumonia possibly hospital-acquired since the patient had a recent history of Pseudomonas pneumonia post surgery at [facility]. Patient was placed on Solu-Medrol, bronchodilators, he was also placed on Zosyn and Levaquin, and I was asked to see him on consultation. Denies headaches or blurred vision dizziness denies nausea vomiting abdominal pain no melena no hematemesis is no dysuria and no frequency no urgency, he does have symptoms of osteoarthritis involving multiple joints. And history of chronic back pain. Denies any symptoms of depression. Denies any symptoms of thrombolic embolic disease and no history of DVT. Patient did have remote history of peptic ulcer disease and previous history of GI bleeding. Review of Systems 14 point review of systems were obtained, please refer to pertinent positives and negatives in HPI. Past Medical History Past Medical History: Asthma, Eye Disorder, GI Bleed, Hyperlipidemia, Hypertension, Osteoarthritis (OA), Pneumonia, Prostate Disorder, Sleep Apnea/ CPAP/BIPAP Additional Past Medical History / Comment(s): Macular degeneration of the eyes, cataract surgery, chronic lower back pain, chronic sinus polyp disease, morbid obesity, He was in the hospital in September 2015 where he was treated for a right olecranon bursitis, peptic ulcer disease with previous history of GI bleed History of Any Multi-Drug Resistant Organisms: None Reported Past Surgical History: Orthopedic Surgery, Prostate Surgery, Tonsillectomy Additional Past Surgical History / Comment(s): Multiple surgeries for nasal polyps, LEFT KNEE ATRHROSCOPY, left total knee arthroplasty, colonoscopy, growth removed from his thumb, correction of a deviated nasal septum, shots in the eye for macular degeneration., Past Anesthesia/Blood Transfusion Reactions: No Reported Reaction Past Psychological History: No Psychological Hx Reported Additional Psychological History / Comment(s): Patient is and he lives with his for 49 years. 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 No animal exposures. No experience. No current tobacco or alcohol use Smoking Status: Former smoker Past Alcohol Use History: Occasional Past Drug Use History: None Reported - Past Family History Father Family Medical History: COPD Additional Family Medical History / Comment(s): emphysema Mother Additional Family Medical History / Comment(s): osteoporosis, lived to be 94 Son(s) Family Medical History: Cancer Additional Family Medical History / Comment(s): testicular cancer, mentally challenged Medications and Allergies Home Medications Medication Instructions Recorded Confirmed Type Albuterol Sulfate [Proair Hfa] 2 puff INHALATION RT-Q6H PRN 07/09/13 07/02/16 History Enalapril [Vasotec] 5 mg PO DAILY 07/09/13 07/02/16 History Fluticasone/Salmeterol [Advair 1 puff INHALATION RT-BID 07/09/13 07/02/16 History 500-50 Diskus] Calcium Carbonate/Vitamin D3 1 tab PO TID 09/08/15 07/02/16 History [Calcium 600-Vit D3 200 Tablet] Furosemide 40 mg PO DAILY 09/08/15 07/02/16 History Multivitamins, Thera [Multivitamin 1 tab PO DAILY 09/08/15 07/02/16 History (formulary)] [place]-3 Fatty Acids/Fish Oil [Fish 1 cap PO DAILY 09/08/15 07/02/16 History Oil 1,000 mg Softgel] Vit C/E/Zn/Coppr/Lutein/Zeaxan 1 cap PO BID 09/08/15 07/02/16 History [Preservision Areds 2 Softgel] Gabapentin [Neurontin] 600 mg PO BID 11/08/15 07/02/16 History Montelukast [Singulair] 10 mg PO DAILY 11/08/15 07/02/16 History Spironolactone [Aldactone] 25 mg PO BID 11/08/15 07/02/16 History Tiotropium 18 Mcg/Puff [Spiriva] 1 cap INHALATION RT-DAILY 11/08/15 07/02/16 History oxyCODONE-APAP 10-325MG [Percocet 1 tab PO Q6HR PRN 11/08/15 07/02/16 History 10-325 mg] Promethaz-Cod 6.25-10 mg/5 ml 5 ml PO Q6HR PRN 07/02/16 07/02/16 History [Phenergan with Codeine] predniSONE 10 mg PO DAILY 07/02/16 07/02/16 History Allergies Allergy/AdvReac Type Severity Reaction Status Date / Time aspirin Allergy Unknown Verified 07/02/16 07:54 cephalexin Allergy Unknown Verified 07/02/16 07:54 Physical Exam Vitals: Vital Signs Temp Pulse Pulse Resp BP BP Pulse Ox 07/02/16 12:00 99.5 F 97 18 103/60 92 L 07/02/16 07:59 98.2 F 90 18 109/63 91 L 07/02/16 07:54 98.7 F 90 20 108/65 94 L 07/02/16 07:09 96 18 103/63 92 L 07/02/16 06:51 98.9 F 98 18 129/67 92 L 07/02/16 06:05 101.4 F H 99 18 101/65 92 L 07/02/16 05:22 93 L 07/02/16 04:34 101.4 F H 122 H 20 119/58 86 L Intake and Output 07/01/16 07/02/16 07/02/16 22:59 06:59 14:59 Other: Weight 87.543 kg 85.5 kg Patient Weight 07/03/16 06:59 Weight 85.5 kg Physical Exam: Revealed a 75-year-old in no distress HEENT:[Neck is supple.] [No neck masses.] [No thyromegaly.] [No JVD.] Chest: [Crackles at the right base, rhonchi and wheezes noted bilaterally..] Cardiac Exam: [Normal S1 and S2, no S3 gallop, no murmur.] Abdomen: [Soft, nontender, no megaly, no rebound, no guarding, normal bowel sounds.] Extremities: [No clubbing, no edema, no cyanosis.] Neurological Exam: [No focal neurologic deficit.] Results - Laboratory Findings CBC and BMP: 07/02/16 04:35 07/02/16 04:35 PT/INR, D-dimer PT 10.0 sec (9.0-12.0) 07/02/16 04:35 INR 1.0 (<1.1) 07/02/16 04:35 Abnormal lab findings: Abnormal Labs 07/02/16 07/02/16 07/02/16 04:35 04:35 04:35 WBC 14.5 H RBC 3.88 L Hgb 12.6 L Hct 35.4 L Neutrophils # 12.1 H Sodium 136 L Chloride 95 L BUN 25 H Glucose 122 H POC Glucose (mg/dL) Hemoglobin A1c Plasma Lactic Acid Cash 2.8 H* Urine Protein Ur Leukocyte Esterase 07/02/16 07/02/16 07/02/16 04:35 11:27 11:41 WBC RBC Hgb Hct Neutrophils # Sodium Chloride BUN Glucose POC Glucose (mg/dL) 142 H Hemoglobin A1c 6.5 H Plasma Lactic Acid Cash Urine Protein Trace H Ur Leukocyte Esterase Small H - Diagnostic Findings Chest x-ray: image reviewed (Right lower lobe pneumonia is strongly suspected) Assessment and Plan Plan: Impression: 1 recurrent acute right lower lobe pneumonia, strongly suspect recurrent Pseudomonas pneumonia, hospital acquired. 2 acute exacerbation of severe persistent asthma 3 possible sepsis, lactic acid on presentation was 2.8, follow-up lactic acid after fluid boluses was 1.6. Patient did not require any hemodynamic support, and he remained hemodynamically stable all along. 4 chronic back pain 5 morbid obesity 6 hypertension 7 hyperlipidemia 8 history of osteoarthritis 9 history of macular degeneration 11 history of right olecranon bursitis. 12 history of obstructive sleep apnea syndrome, apnea hype up the index of 75. Patient is normally on CPAP 11 cm of water pressure. 13 history of peptic ulcer disease and upper GI bleeding from peptic ulcer disease. Recommendation: I fully agree with the present treatment plan patient is on antibiotics in the form of Levaquin and Zosyn, he is on Solu-Medrol 40 mg IV push every 8 hours, back on his usual bronchodilators including Symbicort, Singulair, albuterol and Spiriva. Reviewed the chest x-ray with the patient, discussed his condition with him and with his at bedside. We'll continue to follow. Time with Patient: Greater than 30
[2016-07-02] MEDS ORDERED: ACETAMINOPHEN TAB 325 MG TAB PO PRN (14:33)
--- NOTE | 2016-07-02 15:23 | HP ---
DATE OF ADMISSION: 07/02/2016 CHIEF COMPLAINTS: Fever and chills. This is a 75-year-old white male who is known to have chronic obstructive pulmonary disease and hypertensive cardiovascular disease and chronic arthritis and he has been on prednisone and ( ) and he suddenly started having fever and chills and he has a history of pneumonia with sepsis in the past. Patient was brought to the emergency room. In the ER, he was evaluated extensively and his temperature was 101.4 and CBC showed a WBC count of 14.5, hemoglobin 12.6, platelet count 218, and sodium 136, potassium 4.3, creatinine 1.1, BUN 25. Lactic acid was elevated which was at 2.8. Cardiac enzymes within normal limits. The troponin was less than 0.012. Chest x-ray showed low lung volume and basilar atelectasis and possible right lung base infiltrate. Patient was admitted to the hospital for further evaluation and treatment. He denied any chest pain or any increasing shortness of breath and he has a history of chronic back pain. His past medical history reveals that patient has multiple medical problems. He has a history of chronic COPD and asthma and also degenerative arthritis of multiple joints and has had a left total knee arthroplasty in the past and also has had spinal surgery, nasal polyp removal and prostate surgery. Recently patient had a spinal surgery and following surgery, he developed pneumonia with sepsis and ( ) sepsis. He is allergic to NSAIDS. His home medications include: 1. Albuterol inhaler. 2. Spiriva inhaler. 3. Os-Danie. 4. Neurontin. 5. Lisinopril. 6. Percocet. 7. Singulair. 8. Spironolactone. 9. Prednisone. He does not smoke and drinks alcohol occasionally. Family history reveals that the patient's mother of old age at the age of 92 and father of lung disease and heart disease and one brother had a stroke. REVIEW OF SYSTEMS: Patient denies any headache. His appetite has been good. Bowels regular. He has no chest pain, but he has fever and chills and some cough and some shortness of breath. He has no abdominal pain. He has no polyuria or dysuria. He has no neurological symptoms. Physical examination reveals a 75-year-old white male, moderately obese, alert and oriented. He is in no acute distress. In the ER he was febrile and there is no jaundice. There is no generalized lymphadenopathy. There are no petechiae or bruises. Pulse 96 per minute, blood pressure 129/67. In the ER his temperature was 101.4. Neck is supple. There is no jugular venous distention. The heart is in sinus rhythm. Lungs reveal a few scattered rhonchi and minimal expiratory wheeze. Abdomen is soft and nontender. There is no mass palpable. Examination of the lower extremities reveal no pitting edema. Neurological examination does not reveal any localizing signs. IMPRESSION: 1. Pneumonia with sepsis. 2. Chronic obstructive pulmonary disease. 3. Chronic asthma. 4. Hypertensive cardiovascular disease. 5. Hyperlipidemia. 6. Morbid obesity. 7. Degenerative arthritis in multiple joints. PLAN: Patient will be admitted to the hospital. We will start her on IV Solu-Medrol and IV antibiotics and updraft treatments and will have Dr. Lou see the patient and the patient has been following with Dr. Lou for his lung problems. Prognosis is guarded. The diagnosis, prognosis, and therapeutic plans were discussed in detail with the patient.
[2016-07-02] MEDS: PIPERACILLIN-TAZOBACTAM 3.375 GM in DEXTROSE/WATER 1 50ML.BAG IVPB SCH (15:55)
[2016-07-02 16:37] LABS: Glucose,Whole Blood 185 mg/dL (75-99)
[2016-07-02 20:58] LABS: Glucose,Whole Blood 238 mg/dL (75-99)
[2016-07-02] MEDS: MONTELUKAST 10 MG TAB PO SCH (21:27)
[2016-07-02] MEDS: oxyCODONE-APAP 10-325MG 1 EACH TAB PO PRN (21:48)
[2016-07-03] MEDS: methylPREDNISolone SOD SUCCI 40 MG/ML 1 ML VIAL IV SCH ×3 (00:37→16:28)
[2016-07-03] MEDS: PIPERACILLIN-TAZOBACTAM 3.375 GM in DEXTROSE/WATER 1 50ML.BAG IVPB SCH ×3 (00:37→16:28)
[2016-07-03] MEDS: oxyCODONE-APAP 10-325MG 1 EACH TAB PO PRN ×2 (02:55→17:17)
[2016-07-03] MEDS: SODIUM CHLORIDE 0.9% 1,000 ML IV SCH ×2 (03:00→16:59)
[2016-07-03] MEDS: LEVOFLOXACIN 750MG-D5W PMX 750 MG in DEXTROSE/WATER 1 150ML.BAG IVPB SCH (05:53)
[2016-07-03 06:20] LABS: Glucose,Whole Blood 167 mg/dL (75-99)
[2016-07-03] MEDS: INSULIN LISPRO (humaLOG) 300 UNIT/3 ML VIAL SQ SCH ×4 (06:58→21:47)
[2016-07-03] MEDS: CALCIUM CARB-VIT D 500MG-200UN 1 EACH TAB PO SCH ×3 (08:02→21:47)
[2016-07-03] MEDS: MULTIVITAMINS, THERA 1 EACH TAB PO SCH (08:02)
[2016-07-03] MEDS: SPIRONOLACTONE 25 MG TAB PO SCH ×2 (08:02→16:28)
[2016-07-03] MEDS: GABAPENTIN 300 MG CAP PO SCH ×3 (08:03→21:47)
[2016-07-03] MEDS: FAMOTIDINE 20 MG/2 ML VIAL IV SCH ×2 (08:03→21:47)
[2016-07-03] MEDS: TIOTROPIUM 18 MCG/PUFF INHALER INHALATION SCH (08:06)
[2016-07-03] MEDS: SYMBICORT 160-4.5 MCG INHALER INHALATION SCH ×2 (08:06→20:01)
--- NOTE | 2016-07-03 11:19 | P.PN ---
Subjective Principal diagnosis: Acute right lower lobe pneumonia and acute asthma exacerbation This is a 75-year-old white male quite familiar to my service, patient is known to have severe persistent asthma, prednisone dependent, history of obstructive sleep apnea syndrome, obesity, chronic back pain, severe osteoarthritis, patient had a recent episode of Pseudomonas pneumonia following orthopedic surgery done recently at [facility]. Patient was treated for a long time , he saw me in the office for follow-up, and I increased his steroids dose/ prednisone, I also treated the patient for a longer period of time with Levaquin. His last visit about a week ago, patient was doing quite well, and asymptomatic. I have even recommended cutting down the prednisone to his maintenance dose of 10 mg daily. Patient is now on 20 mg being tapered. At any rate patient has been complaining for the last 2 days of fever or cough and congestion as well as chills. Wheezing and shortness of breath. Presented to the ER with those symptoms, and he was noted to be febrile. He had leukocytosis , and his chest x-ray showed a right lower lobe limited infiltrate. Hence the patient was admitted with the impression of acute right lower lobe pneumonia possibly hospital-acquired since the patient had a recent history of Pseudomonas pneumonia post surgery at [facility]. Patient was placed on Solu-Medrol, bronchodilators, he was also placed on Zosyn and Levaquin, and I was asked to see him on consultation. Denies headaches or blurred vision dizziness denies nausea vomiting abdominal pain no melena no hematemesis is no dysuria and no frequency no urgency, he does have symptoms of osteoarthritis involving multiple joints. And history of chronic back pain. Denies any symptoms of depression. Denies any symptoms of thrombolic embolic disease and no history of DVT. Patient did have remote history of peptic ulcer disease and previous history of GI bleeding. Patient was reevaluated today on 07/03/2016 feeling but better, breathing a lot easier. No fever over the last 24 hours, less cough and less wheezing less shortness of breath. No chest pain no nausea no vomiting no abdominal pain. Patient is ambulating on his own in the hallway. Objective - Vital Signs Vital signs: Vital Signs Temp 96.8 F L 07/03/16 04:00 Pulse 71 07/03/16 04:00 Resp 20 07/03/16 04:00 BP 114/71 07/03/16 04:00 Pulse Ox 94 L 07/03/16 04:00 Intake & Output 07/02/16 07/03/16 07/03/16 18:59 06:59 18:59 Intake Total 240 730 300 Output Total 300 Balance 240 430 300 Weight 85.5 kg 90.5 kg Intake: Oral 240 730 300 Output: Urine 300 Other: # Voids 1 1 # Bowel Movements 1 - Exam Physical Exam: Revealed a 75-year-old in no distress HEENT:[Neck is supple.] [No neck masses.] [No thyromegaly.] [No JVD.] Chest: [Minimal crackles at the right base, no rhonchi, no wheezes..] Cardiac Exam: [Normal S1 and S2, no S3 gallop, no murmur.] Abdomen: [Soft, nontender, no megaly, no rebound, no guarding, normal bowel sounds.] Extremities: [No clubbing, no edema, no cyanosis.] Neurological Exam: [No focal neurologic deficit.] - Labs CBC & Chem 7: 07/02/16 04:35 07/02/16 04:35 Labs: Abnormal Lab Results - Last 24 Hours (Table) 07/02/16 07/02/16 07/02/16 Range/Units 04:35 11:27 11:41 POC Glucose (mg/dL) 142 H (75-99) mg/dL Hemoglobin A1c 6.5 H (4.2-6.1) % Urine Protein Trace H (Negative) Ur Leukocyte Esterase Small H (Negative) 07/02/16 07/02/16 07/03/16 Range/Units 16:36 20:56 06:19 POC Glucose (mg/dL) 185 H 238 H 167 H (75-99) mg/dL Hemoglobin A1c (4.2-6.1) % Urine Protein (Negative) Ur Leukocyte Esterase (Negative) Microbiology - Last 24 Hours (Table) 07/02/16 04:35 Blood Culture - Preliminary Blood No Growth after 24 hours 07/02/16 11:27 Urine Culture - Preliminary Urine,Voided Assessment and Plan Plan: Impression: 1 recurrent acute right lower lobe pneumonia, strongly suspect recurrent Pseudomonas pneumonia, hospital acquired. 2 acute exacerbation of severe persistent asthma 3 possible sepsis, lactic acid on presentation was 2.8, follow-up lactic acid after fluid boluses was 1.6. Patient did not require any hemodynamic support, and he remained hemodynamically stable all along. 4 chronic back pain 5 morbid obesity 6 hypertension 7 hyperlipidemia 8 history of osteoarthritis 9 history of macular degeneration 11 history of right olecranon bursitis. 12 history of obstructive sleep apnea syndrome, apnea hype up the index of 75. Patient is normally on CPAP 11 cm of water pressure. 13 history of peptic ulcer disease and upper GI bleeding from peptic ulcer disease. Recommendation continue present treatment plan, follow-up chest x-ray in a.m., and if not any worse, considering the clinical improvement, patient could be discharged home tomorrow on follow-up on outpatient basis. Time with Patient: Less than 30
[2016-07-03] MEDS: LISINOPRIL 10 MG TAB PO SCH (11:46)
[2016-07-03 11:50] LABS: Glucose,Whole Blood 104 mg/dL (75-99)
--- NOTE | 2016-07-03 14:59 | PN ---
DATE OF SERVICE: 07/03/2016 This is a 75-year-old white male who is known to have chronic obstructive pulmonary disease, chronic asthma, hypertensive cardiovascular disease, morbid obesity and degenerative arthritis of multiple joints and patient was brought to the emergency room because he was getting fever, chills, and general fatigue and shortness of breath. In the ER, he was found to have right lower lobe pneumonia with sepsis. His lactic acid also was elevated. Patient was admitted to the hospital for further evaluation and treatment. The patient was started on IV antibiotics and updraft treatments and IV Solu-Medrol. He has been placed back on his previous home medications and also pain was controlled with Percocet on a p.r.n. basis and patient was seen by Dr. Lou in consultation and Dr. Lou is following the patient and also Dr. Lou was following the patient as outpatient. Today patient seems to be feeling better and he is afebrile. Vital signs are stable. His activity is relatively increased and he is still getting IV antibiotics, IV Solu-Medrol and updraft treatments. Dr. Lou saw the patient today and he has ordered a chest x-ray tomorrow and according to him if chest x-ray shows improvement and the patient is still getting better clinically patient could be discharged home tomorrow. The prognosis is guarded. The diagnosis, prognosis, and therapeutic plans were discussed in detail with the patient today.
[2016-07-03 16:54] LABS: Glucose,Whole Blood 183 mg/dL (75-99)
[2016-07-03 21:02] LABS: Glucose,Whole Blood 206 mg/dL (75-99)
[2016-07-03] MEDS: MONTELUKAST 10 MG TAB PO SCH (21:48)
[2016-07-04] MEDS: SODIUM CHLORIDE 0.9% 1,000 ML IV SCH (00:23)
[2016-07-04] MEDS: PIPERACILLIN-TAZOBACTAM 3.375 GM in DEXTROSE/WATER 1 50ML.BAG IVPB SCH (00:23)
[2016-07-04] MEDS: methylPREDNISolone SOD SUCCI 40 MG/ML 1 ML VIAL IV SCH ×2 (00:23→08:02)
[2016-07-04 05:50] LABS: Glucose,Whole Blood 149 mg/dL (75-99)
[2016-07-04] MEDS: LEVOFLOXACIN 750MG-D5W PMX 750 MG in DEXTROSE/WATER 1 150ML.BAG IVPB SCH (06:39)
[2016-07-04] MEDS: oxyCODONE-APAP 10-325MG 1 EACH TAB PO PRN (06:39)
[2016-07-04] MEDS: INSULIN LISPRO (humaLOG) 300 UNIT/3 ML VIAL SQ SCH (06:40)
[2016-07-04] MEDS: SPIRONOLACTONE 25 MG TAB PO SCH (08:02)
[2016-07-04] MEDS: CALCIUM CARB-VIT D 500MG-200UN 1 EACH TAB PO SCH (08:02)
[2016-07-04] MEDS: FAMOTIDINE 20 MG/2 ML VIAL IV SCH (08:02)
[2016-07-04] MEDS: MULTIVITAMINS, THERA 1 EACH TAB PO SCH (08:02)
[2016-07-04] MEDS: LISINOPRIL 10 MG TAB PO SCH (08:02)
[2016-07-04] MEDS: GABAPENTIN 300 MG CAP PO SCH (08:02)
--- NOTE | 2016-07-04 08:20 | XR ---
EXAMINATION TYPE: XR chest 1V portable DATE OF EXAM: 07/04/2016 COMPARISON: Prior chest x-ray 02 Jul 2016 HISTORY: Pneumonia TECHNIQUE: Single frontal view of the chest is obtained. FINDINGS: Some improvement in aeration is present at the lung bases. No pneumothorax or sizable effu norman. Cardiac mediastinal silhouette, pulmonary vascularity and yehuda are stable. IMPRESSION: Improved aeration. Additional follow-up recommended.
[2016-07-04 09:39] VITALS: BP 124/69; PULSE 76; RESP 16; TEMP 96.8
--- NOTE | 2016-07-04 12:27 | P.PN ---
Subjective Principal diagnosis: Acute right lower lobe pneumonia and acute asthma exacerbation This is a 75-year-old white male quite familiar to my service, patient is known to have severe persistent asthma, prednisone dependent, history of obstructive sleep apnea syndrome, obesity, chronic back pain, severe osteoarthritis, patient had a recent episode of Pseudomonas pneumonia following orthopedic surgery done recently at [facility]. Patient was treated for a long time , he saw me in the office for follow-up, and I increased his steroids dose/ prednisone, I also treated the patient for a longer period of time with Levaquin. His last visit about a week ago, patient was doing quite well, and asymptomatic. I have even recommended cutting down the prednisone to his maintenance dose of 10 mg daily. Patient is now on 20 mg being tapered. At any rate patient has been complaining for the last 2 days of fever or cough and congestion as well as chills. Wheezing and shortness of breath. Presented to the ER with those symptoms, and he was noted to be febrile. He had leukocytosis , and his chest x-ray showed a right lower lobe limited infiltrate. Hence the patient was admitted with the impression of acute right lower lobe pneumonia possibly hospital-acquired since the patient had a recent history of Pseudomonas pneumonia post surgery at [facility]. Patient was placed on Solu-Medrol, bronchodilators, he was also placed on Zosyn and Levaquin, and I was asked to see him on consultation. Denies headaches or blurred vision dizziness denies nausea vomiting abdominal pain no melena no hematemesis is no dysuria and no frequency no urgency, he does have symptoms of osteoarthritis involving multiple joints. And history of chronic back pain. Denies any symptoms of depression. Denies any symptoms of thrombolic embolic disease and no history of DVT. Patient did have remote history of peptic ulcer disease and previous history of GI bleeding. Patient was reevaluated today on 07/03/2016 feeling but better, breathing a lot easier. No fever over the last 24 hours, less cough and less wheezing less shortness of breath. No chest pain no nausea no vomiting no abdominal pain. Patient is ambulating on his own in the hallway. Patient was reevaluated today on 06/26/2016, continues to feel much better, no cough no wheezing no shortness of breath. Chest x-ray continues to show a limited infiltrate in the right lower lobe. Clinically however the patient is much improved, and I believe the patient could possibly be discharged home today and follow up on outpatient basis. Patient is quite agreeable to be discharged, no fever no chills no night sweats. No shortness of breath. Objective - Vital Signs Vital signs: Vital Signs Temp 96.8 F L 07/04/16 08:00 Pulse 76 07/04/16 08:00 Resp 16 07/04/16 08:00 BP 124/69 07/04/16 08:00 Pulse Ox 97 07/04/16 08:00 Intake & Output 07/03/16 07/04/16 07/04/16 18:59 06:59 18:59 Intake Total 536 Output Total 300 Balance 536 -300 Weight 92 kg Intake: Oral 536 Output: Urine 300 Other: # Voids 1 1 # Bowel Movements 1 - Exam Physical Exam: Revealed a 75-year-old in no distress HEENT:[Neck is supple.] [No neck masses.] [No thyromegaly.] [No JVD.] Chest: [Minimal crackles at the right base, no rhonchi, no wheezes..] Cardiac Exam: [Normal S1 and S2, no S3 gallop, no murmur.] Abdomen: [Soft, nontender, no megaly, no rebound, no guarding, normal bowel sounds.] Extremities: [No clubbing, no edema, no cyanosis.] Neurological Exam: [No focal neurologic deficit.] - Labs CBC & Chem 7: 07/02/16 04:35 07/02/16 04:35 Labs: Abnormal Lab Results - Last 24 Hours (Table) 07/03/16 07/03/16 07/04/16 Range/Units 16:50 21:00 05:47 POC Glucose (mg/dL) 183 H 206 H 149 H (75-99) mg/dL Microbiology - Last 24 Hours (Table) 07/02/16 04:35 Blood Culture - Preliminary Blood No Growth after 48 hours 07/02/16 11:27 Urine Culture - Final Urine,Voided Assessment and Plan Plan: Impression: 1 recurrent acute right lower lobe pneumonia, strongly suspect recurrent Pseudomonas pneumonia, hospital acquired. 2 acute exacerbation of severe persistent asthma 3 possible sepsis, lactic acid on presentation was 2.8, follow-up lactic acid after fluid boluses was 1.6. Patient did not require any hemodynamic support, and he remained hemodynamically stable all along. 4 chronic back pain 5 morbid obesity 6 hypertension 7 hyperlipidemia 8 history of osteoarthritis 9 history of macular degeneration 11 history of right olecranon bursitis. 12 history of obstructive sleep apnea syndrome, apnea hype up the index of 75. Patient is normally on CPAP 11 cm of water pressure. 13 history of peptic ulcer disease and upper GI bleeding from peptic ulcer disease. Recommendation continue present treatment plan, discharge patient home today, and follow-up on outpatient basis. Patient is to remain on prednisone 20 mg daily until reevaluated. And he is to go home on Levaquin 750 mg daily until reevaluated in the office. Time with Patient: Less than 30
[2016-07-04] MEDS: TIOTROPIUM 18 MCG/PUFF INHALER INHALATION SCH (12:39)
[2016-07-04] MEDS: SYMBICORT 160-4.5 MCG INHALER INHALATION SCH (12:39)
== END 2016-07-04 15:08 | disposition home or self-care (01) | DRG 871 ==
LOC: EC 04:30 → 6SEL 06:56
PROVIDERS: ADMIT Internal Medicine; ATTEND Internal Medicine
DX: A41.9 Sepsis, unspecified organism (principal); J18.9 Pneumonia, unspecified organism; J44.0 Chronic obstructive pulmonary disease with (acute) lower respiratory infection; E66.01 Morbid (severe) obesity due to excess calories; J45.51 Severe persistent asthma with (acute) exacerbation; I11.9 Hypertensive heart disease without heart failure; E78.5 Hyperlipidemia, unspecified; G47.33 Obstructive sleep apnea (adult) (pediatric); G89.29 Other chronic pain; H35.30 Unspecified macular degeneration; M19.90 Unspecified osteoarthritis, unspecified site; Z79.52 Long term (current) use of systemic steroids; Z79.899 Other long term (current) drug therapy; Z87.11 Personal history of peptic ulcer disease; Z87.891 Personal history of nicotine dependence; Z88.6 Allergy status to analgesic agent
CPT/HCPCS: 36415; 71010; 80053; 81001; 83036; 83605; 84484; 85025; 85610; 85730; 87040; 87086; 93005; 94640

== ENCOUNTER → 2016-10-28 | Outpatient (CLI) | payer MEDICARE, BC ==
[2016-10-28 08:36] LABS: Anion Gap 9 mmol/L; Blood Urea Nitrogen 17 mg/dL (9-20); Calcium 9.5 mg/dL (8.4-10.2); Carbon Dioxide 29 mmol/L (22-30); Chloride 101 mmol/L (98-107); Glucose 81 mg/dL (74-99); Non-African American GFR(MDRD) >60 (>60 ml/min/1.73 sqM); Potassium 4.5 mmol/L (3.5-5.1); Sodium 139 mmol/L (137-145)
[2016-10-28 12:42] LABS: Hemoglobin A1C 6.1 % (4.2-6.1)
== END | disposition home or self-care (01) ==
LOC: LABWHC1 07:38
PROVIDERS: ATTEND Internal Medicine
DX: I11.9 Hypertensive heart disease without heart failure (principal); R73.9 Hyperglycemia, unspecified
CPT/HCPCS: 36415; 80048; 83036

== ENCOUNTER 2017-01-24 14:21 | Emergency (ER) | payer MEDICARE, BC ==
[2017-01-24] MEDS ORDERED: HYDROmorphone 1 MG/ML 1 ML SYRINGE IVP STA (14:33)
[2017-01-24] MEDS ORDERED: KETOROLAC 30 MG/ML 1 ML VIAL IVP STA (15:04)
--- NOTE | 2017-01-24 15:07 | ED ---
General Adult HPI - General Chief complaint: Extremity Injury, Upper Stated complaint: LT SHOULDER PAIN FROM FALL Time Seen by Provider: 01/24/17 14:24 Source: patient, EMS Mode of arrival: EMS Limitations: no limitations - History of Present Illness Initial comments: patient presents with a chief complaint of left shoulder pain after a fall at home. The patient states that he tripped over a box and landed on his shoulder on concrete. He denies any head or neck trauma. He denies being on any blood thinners. The patient has no other injuries except for his left shoulder which is obviously deformed. Patient reports no loss of consciousness, and remembers the entire event. This happened about an hour and half prior to arrival. Per EMS he was given 10 mg of morphine, he takes Percocet tens daily. - Related Data Home Medications Medication Instructions Recorded Confirmed Albuterol Sulfate [Proair Hfa] 2 puff INHALATION RT-QID PRN 07/09/13 01/24/17 Enalapril [Vasotec] 5 mg PO DAILY 07/09/13 01/24/17 Fluticasone/Salmeterol [Advair 1 puff INHALATION RT-BID 07/09/13 01/24/17 500-50 Diskus] Furosemide 40 mg PO DAILY 09/08/15 01/24/17 Multivitamins, Thera [Multivitamin 1 tab PO DAILY 09/08/15 01/24/17 (formulary)] Vit C/E/Zn/Coppr/Lutein/Zeaxan 1 cap PO DAILY 09/08/15 01/24/17 [Preservision Areds 2 Softgel] Montelukast [Singulair] 10 mg PO DAILY 11/08/15 01/24/17 Spironolactone [Aldactone] 25 mg PO DAILY 11/08/15 01/24/17 Tiotropium 18 Mcg/Puff [Spiriva] 1 cap INHALATION RT-DAILY 11/08/15 01/24/17 oxyCODONE-APAP 10-325MG [Percocet 1 tab PO Q6HR PRN 11/08/15 01/24/17 10-325 mg] Atorvastatin [Lipitor] 20 mg PO DAILY 01/24/17 01/24/17 Calcium Carbonate/Vitamin D3 1 tab PO DAILY 01/24/17 01/24/17 [Calcium 500-Vit D3 200 Tablet] Diazepam [Valium] 5 mg PO DAILY 01/24/17 01/24/17 Fishoil [id number] 5 ml PO DAILY 01/24/17 01/24/17 Gabapentin [Neurontin] 400 mg PO BID 01/24/17 01/24/17 Ipratropium-Albuterol Nebulize 3 ml INHALATION RT-QID 01/24/17 01/24/17 [Duoneb 0.5 mg-3 mg/3 ml Soln] predniSONE 20 mg PO DAILY 01/24/17 01/24/17 Allergies Allergy/AdvReac Type Severity Reaction Status Date / Time aspirin Allergy Unknown Verified 01/24/17 15:05 cephalexin Allergy Unknown Verified 01/24/17 15:05 Review of Systems ROS Statement: Those systems with pertinent positive or pertinent negative responses have been documented in the HPI. ROS Other: All systems not noted in ROS Statement are negative. Constitutional: Denies: fever Eyes: Denies: vision change ENT: Denies: throat pain Respiratory: Denies: cough Cardiovascular: Denies: chest pain Gastrointestinal: Denies: abdominal pain Genitourinary: Denies: dysuria Musculoskeletal: Reports: joint swelling. Denies: back pain Skin: Denies: rash Neurological: Denies: headache Past Medical History Past Medical History: Asthma, COPD, Eye Disorder, GI Bleed, Hyperlipidemia, Hypertension, Osteoarthritis (OA), Pneumonia, Prostate Disorder Additional Past Medical History / Comment(s): Macular degeneration of the eyes, cataract surgery, osteoarthritis, chronic lower back pain, chronic sinus polyp disease, morbid obesity, obstructive sleep apnea severe with an AHI of 75 and he was given CPAP therapy at a pressure of 11 cm of water. He was in the hospital in September 2015 where he was treated for a right olecranon bursitis, peptic ulcer disease with previous history of GI bleed History of Any Multi-Drug Resistant Organisms: None Reported Past Surgical History: Orthopedic Surgery, Prostate Surgery, Tonsillectomy Additional Past Surgical History / Comment(s): Multiple surgeries for nasal polyps, LEFT KNEE ATRHROSCOPY, left total knee arthroplasty, colonoscopy, growth removed from his thumb, correction of a deviated nasal septum, shots in the eye for macular degeneration., Past Anesthesia/Blood Transfusion Reactions: No Reported Reaction Past Psychological History: No Psychological Hx Reported Smoking Status: Former smoker Past Alcohol Use History: Occasional Past Drug Use History: None Reported - Past Family History Father Family Medical History: COPD Additional Family Medical History / Comment(s): emphysema Mother Additional Family Medical History / Comment(s): osteoporosis, lived to be 94 Son(s) Family Medical History: Cancer Additional Family Medical History / Comment(s): testicular cancer, mentally challenged General Exam Limitations: no limitations General appearance: alert, in no apparent distress Head exam: Present: atraumatic, normocephalic Eye exam: Present: normal appearance Neck exam: Present: normal inspection Respiratory exam: Present: normal lung sounds bilaterally Cardiovascular Exam: Present: regular rate, normal rhythm GI/Abdominal exam: Present: soft Rectal exam: Present: deferred Extremities exam: Present: tenderness, other (patient has an obvious deformity of the left shoulder. Radial, ulnar, and median nerve function is intact. Patient is able to feel me touching his anterior lateral left shoulder.) Back exam: Present: normal inspection Neurological exam: Present: alert, oriented X3 Psychiatric exam: Present: normal affect, normal mood Skin exam: Present: warm, dry, intact Course Vital Signs 01/24/17 01/24/17 01/24/17 14:29 15:27 15:58 Temperature 97.4 F L Pulse Rate 93 93 84 Respiratory 20 20 20 Rate Blood Pressure 164/105 171/91 167/84 O2 Sat by Pulse 97 94 L 95 Oximetry 01/24/17 01/24/17 01/24/17 16:01 16:07 16:11 Temperature Pulse Rate 84 100 100 Respiratory 20 16 16 Rate Blood Pressure 161/78 161/95 159/70 O2 Sat by Pulse 97 95 96 Oximetry 01/24/17 01/24/17 16:14 16:19 Temperature Pulse Rate 101 H 99 Respiratory 18 16 Rate Blood Pressure 157/76 157/70 O2 Sat by Pulse 96 95 Oximetry Procedures - Procedural Sedation Procedural Sedation Start Time: 16:01 Procedural Sedation Stop Time: 16:19 Indications: fracture/dislocation reduction ASA Class: II Mallampati Airway Score: 2 Time of Last PO Intake: 12:00 Preparation: dough brake machine operator applied, pulse oximeter, capnometry used, supplemental O2 applied, suction/airway equipment at bedside, IV secured Ketamine: IV Ketamine Dose: 1 Patient Tolerated Procedure: well Additional Comments: reduction was successful however patient sustained a skin tear to the left elbow during the procedure. The skin tear was covered with 4 x 4's and Kerlix there was no further complications. Medical Decision Making - Medical Decision Making patient presents with chief complaint of left shoulder pain after a fall. There was no head or neck trauma, patient members entire event and denies loss of consciousness. His only complaint at this time is left shoulder. Examination there is an obvious deformity. X-ray confirms an anterior dislocation of the left shoulder. Patient was sedated for reduction of left shoulder as per the procedure note. Patient tolerated the procedure well and states interval improvement of pain. Repeat neuro examination of the left upper extremity remains unchanged. Patient was observed for a period of time after sedation and is currently awake, alert, and oriented. Patient was able to ambulate well without assistance.patient was instructed to follow-up with orthopedic surgery or return to the emergency department if symptoms worsen. He was instructed to take his regularly prescribed Percocet at home, and was instructed to continue to wear the sling he was provided in the emergency department. - Lab Data Result diagrams: 01/24/17 14:48 01/24/17 14:48 Lab Results 01/24/17 01/24/17 Range/Units 14:48 14:48 WBC 17.4 H (3.8-10.6) k/uL RBC 3.95 L (4.30-5.90) m/uL Hgb 12.2 L (13.0-17.5) gm/dL Hct 37.5 L (39.0-53.0) % MCV 95.0 (80.0-100.0) fL MCH 30.8 (25.0-35.0) pg MCHC 32.4 (31.0-37.0) g/dL RDW 15.3 (11.5-15.5) % Plt Count 318 (150-450) k/uL Neutrophils % 86 % Lymphocytes % 7 % Monocytes % 6 % Eosinophils % 0 % Basophils % 0 % Neutrophils # 14.9 H (1.3-7.7) k/uL Lymphocytes # 1.3 (1.0-4.8) k/uL Monocytes # 1.0 (0-1.0) k/uL Eosinophils # 0.1 (0-0.7) k/uL Basophils # 0.0 (0-0.2) k/uL Sodium 138 (137-145) mmol/L Potassium 5.2 H (3.5-5.1) mmol/L Chloride 100 (98-107) mmol/L Carbon Dioxide 23 (22-30) mmol/L Anion Gap 15 mmol/L BUN 45 H (9-20) mg/dL Creatinine 1.37 H (0.66-1.25) mg/dL Est GFR (MDRD) Af Amer >60 (>60 ml/min/1.73 sqM) Est GFR (MDRD) Non-Af 50 (>60 ml/min/1.73 sqM) Glucose 173 H (74-99) mg/dL Calcium 10.4 H (8.4-10.2) mg/dL Disposition Clinical Impression: Anterior shoulder dislocation Disposition: HOME SELF-CARE Condition: Good Instructions: Shoulder Dislocation (ED) Referrals: Al Ramirez MD [Primary Care Provider] - 1-2 days Rich Orantes MD [STAFF PHYSICIAN] - 1-2 days
[2017-01-24 15:10] LABS: Basophils % (A) 0 %; CH 31.3; CHCM 33.1; Eosinophils # (A) 0.1 k/uL (0-0.7); Eosinophils % (A) 0 %; HCT 37.5 % (39.0-53.0); HDW 2.43; HGB 12.2 gm/dL (13.0-17.5); Luc # (Auto) 0.15; Luc % (Auto) 1; Lymphocytes # (A) 1.3 k/uL (1.0-4.8); Lymphocytes % (A) 7 %; MCH 30.8 pg (25.0-35.0); MCHC 32.4 g/dL (31.0-37.0); Mean Platelet Volume 7.4; Monocytes % (A) 6 %; Neutrophils # (A) 14.9 k/uL (1.3-7.7); Neutrophils % (A) 86 %; RBC 3.95 m/uL (4.30-5.90); RDW 15.3 % (11.5-15.5); WBC 17.4 k/uL (3.8-10.6); WBC (Perox) 18.04
[2017-01-24 15:17] LABS: Anion Gap 15 mmol/L; Calcium 10.4 mg/dL (8.4-10.2); Carbon Dioxide 23 mmol/L (22-30); Chloride 100 mmol/L (98-107); Glucose 173 mg/dL (74-99); Non-African American GFR(MDRD) 50 (>60 ml/min/1.73 sqM); Sodium 138 mmol/L (137-145)
[2017-01-24 15:18] LABS: Blood Urea Nitrogen 45 mg/dL (9-20); Potassium 5.2 mmol/L (3.5-5.1)
--- NOTE | 2017-01-24 15:37 | XR ---
EXAMINATION TYPE: XR shoulder complete LT DATE OF EXAM: 01/24/2017 COMPARISON: NONE HISTORY: 76-year-old male with pain after fall today TECHNIQUE: 2 views, AP and scapular Y FINDINGS: There is an anterior subglenoid glenohumeral joint dislocation. No acute fracture seen. Moderate dege nerative change at the AC joint. IMPRESSION: Anterior subglenoid glenohumeral joint dislocation.
[2017-01-24] MEDS ORDERED: SODIUM CHLORIDE 0.9% 1,000 ML IV STA (15:39)
[2017-01-24] MEDS ORDERED: KETAMINE 10 MG/ML 20 ML VIAL IV ONE (15:45)
--- NOTE | 2017-01-24 16:31 | XR ---
EXAMINATION TYPE: XR shoulder limited LT DATE OF EXAM: 01/24/2017 CLINICAL HISTORY: Left shoulder dislocation TECHNIQUE: Single portable view of the left shoulder is obtained after reduction. COMPARISON: Left shoulder x-ray earlier today.. FINDINGS: There is improved alignment of humeral head relative to glenoid cavity after reduction. Ac romioclavicular joint arthropathy is redemonstrated. High riding humeral head suggests chronic rotato r cuff tear. No acute fracture is noted. IMPRESSION: There is interval satisfactory reduction of anterior shoulder dislocation.
[2017-01-24 17:09] VITALS: BP 151/76; PULSE 90; RESP 20; TEMP 98.2
== END 2017-01-24 17:04 | disposition home or self-care (01) ==
LOC: EC 14:21
DX: S43.005A Unspecified dislocation of left shoulder joint, initial encounter (principal); J44.9 Chronic obstructive pulmonary disease, unspecified; E78.5 Hyperlipidemia, unspecified; I10 Essential (primary) hypertension; M19.90 Unspecified osteoarthritis, unspecified site; E66.01 Morbid (severe) obesity due to excess calories; Z68.28 Body mass index [BMI] 28.0-28.9, adult; Z87.891 Personal history of nicotine dependence; N42.9 Disorder of prostate, unspecified; G47.33 Obstructive sleep apnea (adult) (pediatric); Z99.89 Dependence on other enabling machines and devices; Z79.51 Long term (current) use of inhaled steroids; Z79.52 Long term (current) use of systemic steroids; Z79.899 Other long term (current) drug therapy; Z88.6 Allergy status to analgesic agent; Z88.1 Allergy status to other antibiotic agents; W01.0XXA Fall on same level from slipping, tripping and stumbling without subsequent striking against object, initial encounter
CPT/HCPCS: 36415; 80048; 85025; 73030; 73020; 99284; 23650; 99152; 96374; 96375 ×2; 96361; J1885; J1170

== ENCOUNTER → 2017-02-12 | Outpatient (CLI) | payer MEDICARE, BC ==
[2017-02-12 08:08] LABS: Anion Gap 13 mmol/L; Blood Urea Nitrogen 30 mg/dL (9-20); Calcium 10.7 mg/dL (8.4-10.2); Carbon Dioxide 33 mmol/L (22-30); Chloride 95 mmol/L (98-107); Glucose 97 mg/dL (74-99); Potassium 4.7 mmol/L (3.5-5.1); Sodium 141 mmol/L (137-145)
[2017-02-12 14:19] LABS: Hemoglobin A1C 6.4 % (4.0-6.0)
== END | disposition home or self-care (01) ==
LOC: LABWHC1 07:09
PROVIDERS: ATTEND Internal Medicine
DX: I11.9 Hypertensive heart disease without heart failure (principal); R73.9 Hyperglycemia, unspecified
CPT/HCPCS: 36415; 80048; 83036

== ENCOUNTER 2017-03-09 11:13 | Day surgery (SDC) | payer MEDICARE, BC ==
[2017-03-04 15:30] VITALS: BMI 32.9
[~2017-03-09 11:13] MED LIST: ALBUTEROL NEB (CONC) 2.5 MG/0.5 ML INHALATION ONE; LACTATED RINGERS 1,000 ML IV ONE; LACTATED RINGERS 1,000 ML IV SCH; LIDOCAINE 2% (PF) 20 MG/ML 2 ML AMP INHALATION ONE
[2017-03-09 11:41] VITALS: TEMP 97
[2017-03-09] MEDS ORDERED: LIDOCAINE 1% 20 ML VIAL (10MG/ML) FOR IV START INTRADERMA ONE (11:43)
[2017-03-09 11:55] LABS: Glucose,Whole Blood 158 mg/dL (75-99)
[2017-03-09] MEDS ORDERED: LIDOCAINE 1% INJ 10MG/ML (20 ML MDV) ONE (12:31)
[2017-03-09] MEDS ORDERED: PROPOFOL 10 MG/ML 20 ML VIAL IV ONE (12:31)
[2017-03-09] MEDS ORDERED: MIDAZOLAM 2 MG/2 ML VIAL ONE (12:31)
[2017-03-09] MEDS ORDERED: LIDOCAINE 2% INJ 20 MG/ML INTRATRACH ONE (12:47)
[2017-03-09 13:09] VITALS: RESP 18
--- NOTE | 2017-03-09 13:27 | PCN ---
PROCEDURE NOTE OPERATIVE REPORT: Bronchoscopy, bronchoalveolar lavage of the right lower lobe, right middle lobe, right upper lobe, and bronchial washings with lavage of the left lower lobe and lingula. PREOPERATIVE DIAGNOSIS: Severe persistent asthma, severe persistent cough, unable to clear secretions, history of Pseudomonas pneumonia. POSTOPERATIVE DIAGNOSIS: Severe persistent asthma, severe persistent cough, unable to clear secretions, history of Pseudomonas pneumonia. ANESTHESIA USED: IV conscious sedation. Please refer to TRACK PRODUCTION ENGINEER documentation. PROCEDURE: The patient was prepared according to the bronchoscopy protocol. O2 was applied via nasal cannula and we monitored his O2 saturation continuously. Blood pressure was intermittently monitored. Cardiac rhythm was continuously monitored. After adequate IV conscious sedation, the right naris was locally anesthetized with lidocaine. Then the tip of the bronchoscope was inserted through the right naris down to the area of the vocal cords. The vocal cords were patent. Lidocaine was applied over the vocal cords, the bronchoscope was advanced further down. I was able to visualize the trachea, elo, right upper lobe, right middle lobe, right lower lobe, left upper lobe, lingula, and left lower lobe. Trachea was normal. Elo was sharp, however, there was significant purulent secretions noted in the right upper lobe, right middle lobe and right lower lobe. These were all suctioned, and lavage/bronchoalveolar lavage of different lobes including the right upper lobe, right middle lobe and right lower lobe was done. Continued to lavage the lobes until the purulent secretions were also suctioned. Then the specimen was sent for different diagnostic studies. I moved down to the left side, and I was able to visualize the left upper lobe, lingula and left lower lobe, significant purulent again thick secretions noted in the lingula and in the left lower lobe. These were suctioned with saline washing, I was able to clear all the purulent secretions from the left side. The procedure was well tolerated. No evidence of any immediate complications. No significant bleeding noted. No evidence of any endobronchial tumors. MMODL / IJN: [id number] /
[2017-03-09 13:52] VITALS: BP 105/60; PULSE 78
[2017-03-09 17:29] LABS: Appearance,BF Cloudy; Color,BF Red; Nucleated Cells, Body Fluid 960 /uL; RBC, Body Fluid 5160 /uL
[2017-03-09 17:34] LABS: Mononuclear WBC,Body Fluid 20 %; Polynuclear WBC,Body Fluid 80 %; Total Cells Counted,Body Fluid 100
== END 2017-03-09 14:04 | disposition home or self-care (01) ==
LOC: ORWHC2ENDO 11:13
PROVIDERS: ATTEND Internal Medicine
DX: J45.50 Severe persistent asthma, uncomplicated (principal); J47.9 Bronchiectasis, uncomplicated; J18.1 Lobar pneumonia, unspecified organism; I10 Essential (primary) hypertension; M19.90 Unspecified osteoarthritis, unspecified site; K92.2 Gastrointestinal hemorrhage, unspecified; I27.81 Cor pulmonale (chronic); E78.5 Hyperlipidemia, unspecified; G47.33 Obstructive sleep apnea (adult) (pediatric); H57.9 Unspecified disorder of eye and adnexa; N42.9 Disorder of prostate, unspecified; Z79.82 Long term (current) use of aspirin; Z79.51 Long term (current) use of inhaled steroids; Z79.52 Long term (current) use of systemic steroids; Z79.899 Other long term (current) drug therapy; Z87.891 Personal history of nicotine dependence; Z88.6 Allergy status to analgesic agent
CPT/HCPCS: 94640; 88108; 88305; 89050; 87252; 87070; 87205; 87116; 87102; 87206; 31624; J2001 ×3; J2250; J2704; 87077; 87186; 87496; 87498; 87502; 87529; 87634; 87798

== ENCOUNTER → 2017-04-30 | Outpatient (CLI) | payer MEDICARE, BC ==
[2017-04-30 07:55] LABS: Calcium 10.3 mg/dL (8.4-10.2); Potassium 4.3 mmol/L (3.5-5.1)
== END | disposition home or self-care (01) ==
LOC: LABWHC1 07:10
PROVIDERS: ATTEND Internal Medicine
DX: I11.9 Hypertensive heart disease without heart failure (principal); R73.9 Hyperglycemia, unspecified
CPT/HCPCS: 36415; 80048

== ENCOUNTER 2017-05-16 02:40 | Inpatient (IN) | payer MEDICARE, BC ==
[2017-05-16 03:34] LABS: Basophils % (A) 0 %; Eosinophils # (A) 0.2 k/uL (0-0.7); Eosinophils % (A) 1 %; HCT 35.2 % (39.0-53.0); HGB 11.8 gm/dL (13.0-17.5); Lymphocytes # (A) 1.2 k/uL (1.0-4.8); Lymphocytes % (A) 8 %; MCH 30.8 pg (25.0-35.0); MCHC 33.4 g/dL (31.0-37.0); Mean Platelet Volume 7.1; Monocytes # (A) 1.4 k/uL (0-1.0); Monocytes % (A) 9 %; Neutrophils # (A) 12.3 k/uL (1.3-7.7); Neutrophils % (A) 81 %; Platelet Count 299 k/uL (150-450); RBC 3.83 m/uL (4.30-5.90); RDW 15.2 % (11.5-15.5); WBC 15.2 k/uL (3.8-10.6)
[2017-05-16 03:42] LABS: INR 0.9 (<1.2); Prothrombin Time 9.5 sec (9.0-12.0)
[2017-05-16 03:42] LABS: Appearance,Urine Clear (Clear); Bilirubin,Urine Negative (Negative); Blood,Urine Negative (Negative); Color,Urine Colorless; Glucose,Urine (UA) Negative (Negative); Ketones,Urine Negative (Negative); Leukocyte Esterase,Urine Negative (Negative); Nitrite,Urine Negative (Negative); Protein,Urine Negative (Negative); Specific Gravity,Urine 1.009 (1.001-1.035); Urobilinogen,Urine <2.0 mg/dL (<2.0)
[2017-05-16 03:50] LABS: Partial Thromboplastin Time 18.8 sec (22.0-30.0)
[2017-05-16] MEDS ORDERED: ACETAMINOPHEN TAB 500 MG TAB PO STA (03:50)
--- NOTE | 2017-05-16 03:56 | ED ---
Fever HPI - General Chief Complaint: Chest Pain Stated Complaint: SOB, poss fever Time Seen by Provider: 05/16/17 03:00 Source: patient Mode of arrival: ambulatory Limitations: no limitations - History of Present Illness Initial Comments: Patient is 76-year-old man who presents tonight with complaint of having a shaking chill that developed around 1 AM while he was trying to sleep. Patient states that he has had this previously and it was associated with pneumonia. He states that he was told to immediately go to the emergency department if he ever had this symptom. Patient has had a little bit of a mild cough. He denies chest pain. No nausea or vomiting. No change in urination or bowel movements. MD Complaint: other (Chills) Onset/Timin -: hour(s) Associated Symptoms: chills, rigors, cough Treatments Prior to Arrival: none - Related Data Home Medications Medication Instructions Recorded Confirmed Albuterol Sulfate [Proair Hfa] 2 puff INHALATION RT-QID PRN 07/09/13 05/16/17 Enalapril [Vasotec] 5 mg PO DAILY 07/09/13 05/16/17 Fluticasone/Salmeterol [Advair 1 puff INHALATION RT-BID 07/09/13 05/16/17 500-50 Diskus] Furosemide 40 mg PO DAILY 09/08/15 05/16/17 Multivitamins, Thera [Multivitamin 1 tab PO DAILY 09/08/15 05/16/17 (formulary)] Vit C/E/Zn/Coppr/Lutein/Zeaxan 1 cap PO DAILY 09/08/15 05/16/17 [Preservision Areds 2 Softgel] Montelukast [Singulair] 10 mg PO DAILY 11/08/15 05/16/17 Spironolactone [Aldactone] 25 mg PO DAILY 11/08/15 05/16/17 oxyCODONE-APAP 10-325MG [Percocet 1 tab PO Q6HR PRN 11/08/15 05/16/17 10-325 mg] Atorvastatin [Lipitor] 20 mg PO DAILY 01/24/17 05/16/17 Calcium Carbonate/Vitamin D3 1 tab PO DAILY 01/24/17 05/16/17 [Calcium 500-Vit D3 200 Tablet] Fishoil [id number]/5ml 5 ml PO DAILY 01/24/17 05/16/17 Gabapentin [Neurontin] 400 mg PO BID 01/24/17 05/16/17 Ipratropium-Albuterol Nebulize 3 ml INHALATION RT-QID 01/24/17 05/16/17 [Duoneb 0.5 mg-3 mg/3 ml Soln] predniSONE 40 mg PO DAILY 03/04/17 05/16/17 Theophylline Anhydrous 400 mg PO BID 05/16/17 05/16/17 [Theophylline] Allergies Allergy/AdvReac Type Severity Reaction Status Date / Time aspirin Allergy does not Verified 03/04/17 15:25 take r/t hx of nasal polyps NSAIDS (Non-Steroidal Allergy states was Verified 03/04/17 15:25 Anti-Inflamma told never to take Review of Systems ROS Statement: Those systems with pertinent positive or pertinent negative responses have been documented in the HPI. ROS Other: All systems not noted in ROS Statement are negative. Constitutional: Reports: chills Respiratory: Reports: cough. Denies: dyspnea, wheezes Cardiovascular: Denies: chest pain, orthopnea, syncope Gastrointestinal: Denies: abdominal pain, nausea, vomiting Genitourinary: Denies: dysuria, hematuria Musculoskeletal: Denies: back pain Skin: Denies: rash Neurological: Denies: headache, weakness, numbness Past Medical History Past Medical History: Asthma, COPD, Eye Disorder, GI Bleed, Hyperlipidemia, Hypertension, Osteoarthritis (OA), Pneumonia, Prostate Disorder Additional Past Medical History / Comment(s): Macular degeneration of the eyes, osteoarthritis, chronic lower back pain, chronic sinus polyp, In 2016 where he was treated for a right olecranon bursitis, peptic ulcer disease with previous history of GI bleed. PSEUDOMONIS PNEUMONIA AND SEPSIS POST BACK SX 2017 History of Any Multi-Drug Resistant Organisms: None Reported Past Surgical History: Back Surgery, Orthopedic Surgery, Prostate Surgery, Tonsillectomy Additional Past Surgical History / Comment(s): BACK SX, Multiple surgeries for nasal polyps, LEFT KNEE ATRHROSCOPY, left total knee arthroplasty, colonoscopy , growth removed from his thumb, correction of a deviated nasal septum, shots in the eye for macular degeneration., Past Anesthesia/Blood Transfusion Reactions: No Reported Reaction Past Psychological History: No Psychological Hx Reported Smoking Status: Former smoker Past Alcohol Use History: Occasional Past Drug Use History: None Reported - Past Family History Father Family Medical History: COPD Additional Family Medical History / Comment(s): emphysema Mother Additional Family Medical History / Comment(s): osteoporosis, lived to be 94 Son(s) Family Medical History: Cancer Additional Family Medical History / Comment(s): testicular cancer, mentally challenged General Exam Limitations: no limitations General appearance: alert, obese Head exam: Present: atraumatic, normocephalic Eye exam: Present: normal appearance. Absent: scleral icterus, conjunctival injection Neck exam: Present: normal inspection, full ROM Respiratory exam: Present: wheezes. Absent: respiratory distress, rales, rhonchi, stridor, accessory muscle use, decreased breath sounds, prolonged expiratory Cardiovascular Exam: Present: tachycardia, normal heart sounds. Absent: systolic murmur, diastolic murmur, rubs, gallop GI/Abdominal exam: Present: soft. Absent: distended, tenderness, guarding, rebound, mass Extremities exam: Present: normal inspection, normal capillary refill, pedal edema. Absent: calf tenderness Back exam: Present: normal inspection. Absent: CVA tenderness (R), CVA tenderness (L) Neurological exam: Present: alert Skin exam: Present: warm, dry, intact, normal color. Absent: rash Course Vital Signs 05/16/17 05/16/17 05/16/17 02:42 03:01 04:21 Temperature 99.5 F 103.6 F H 103.1 F H Pulse Rate 114 H 110 H Respiratory 22 20 Rate Blood Pressure 134/68 112/59 O2 Sat by Pulse 95 97 Oximetry 05/16/17 05:40 Temperature 101.1 F H Pulse Rate 105 H Respiratory 19 Rate Blood Pressure 115/68 O2 Sat by Pulse 97 Oximetry Medical Decision Making - Lab Data Result diagrams: 05/16/17 03:00 05/16/17 03:00 Lab Results 05/16/17 05/16/17 05/16/17 Range/Units 03:00 03:00 03:00 WBC 15.2 H (3.8-10.6) k/uL RBC 3.83 L (4.30-5.90) m/uL Hgb 11.8 L (13.0-17.5) gm/dL Hct 35.2 L (39.0-53.0) % MCV 92.0 (80.0-100.0) fL MCH 30.8 (25.0-35.0) pg MCHC 33.4 (31.0-37.0) g/dL RDW 15.2 (11.5-15.5) % Plt Count 299 (150-450) k/uL Neutrophils % 81 % Lymphocytes % 8 % Monocytes % 9 % Eosinophils % 1 % Basophils % 0 % Neutrophils # 12.3 H (1.3-7.7) k/uL Lymphocytes # 1.2 (1.0-4.8) k/uL Monocytes # 1.4 H (0-1.0) k/uL Eosinophils # 0.2 (0-0.7) k/uL Basophils # 0.0 (0-0.2) k/uL PT 9.5 (9.0-12.0) sec INR 0.9 (<1.2) APTT 18.8 L (22.0-30.0) sec Sodium 139 (137-145) mmol/L Potassium 4.8 (3.5-5.1) mmol/L Chloride 94 L (98-107) mmol/L Carbon Dioxide 27 (22-30) mmol/L Anion Gap 18 mmol/L BUN 39 H (9-20) mg/dL Creatinine 1.10 (0.66-1.25) mg/dL Est GFR (CKD-EPI)AfAm 75 (>60 ml/min/1.73 sqM) Est GFR (CKD-EPI)NonAf 65 (>60 ml/min/1.73 sqM) Glucose 83 (74-99) mg/dL Plasma Lactic Acid Cash (0.7-2.0) mmol/L Calcium 10.6 H (8.4-10.2) mg/dL Total Bilirubin 0.4 (0.2-1.3) mg/dL AST 28 (17-59) U/L ALT 39 (21-72) U/L Alkaline Phosphatase 54 (38-126) U/L Troponin I (0.000-0.034) ng/mL Total Protein 7.6 (6.3-8.2) g/dL Albumin 4.6 (3.5-5.0) g/dL Urine Color Urine Appearance (Clear) Urine pH (5.0-8.0) Ur Specific [place] (1.001-1.035) Urine Protein (Negative) Urine Glucose (UA) (Negative) Urine Ketones (Negative) Urine Blood (Negative) Urine Nitrite (Negative) Urine Bilirubin (Negative) Urine Urobilinogen (<2.0) mg/dL Ur Leukocyte Esterase (Negative) Influenza Type A RNA (Not Detectd) Influenza Type B (PCR) (Not Detectd) 05/16/17 05/16/17 05/16/17 Range/Units 03:00 03:18 03:18 WBC (3.8-10.6) k/uL RBC (4.30-5.90) m/uL Hgb (13.0-17.5) gm/dL Hct (39.0-53.0) % MCV (80.0-100.0) fL MCH (25.0-35.0) pg MCHC (31.0-37.0) g/dL RDW (11.5-15.5) % Plt Count (150-450) k/uL Neutrophils % % Lymphocytes % % Monocytes % % Eosinophils % % Basophils % % Neutrophils # (1.3-7.7) k/uL Lymphocytes # (1.0-4.8) k/uL Monocytes # (0-1.0) k/uL Eosinophils # (0-0.7) k/uL Basophils # (0-0.2) k/uL PT (9.0-12.0) sec INR (<1.2) APTT (22.0-30.0) sec Sodium (137-145) mmol/L Potassium (3.5-5.1) mmol/L Chloride (98-107) mmol/L Carbon Dioxide (22-30) mmol/L Anion Gap mmol/L BUN (9-20) mg/dL Creatinine (0.66-1.25) mg/dL Est GFR (CKD-EPI)AfAm (>60 ml/min/1.73 sqM) Est GFR (CKD-EPI)NonAf (>60 ml/min/1.73 sqM) Glucose (74-99) mg/dL Plasma Lactic Acid Cash 1.8 (0.7-2.0) mmol/L Calcium (8.4-10.2) mg/dL Total Bilirubin (0.2-1.3) mg/dL AST (17-59) U/L ALT (21-72) U/L Alkaline Phosphatase (38-126) U/L Troponin I 0.012 (0.000-0.034) ng/mL Total Protein (6.3-8.2) g/dL Albumin (3.5-5.0) g/dL Urine Color Urine Appearance (Clear) Urine pH (5.0-8.0) Ur Specific [place] (1.001-1.035) Urine Protein (Negative) Urine Glucose (UA) (Negative) Urine Ketones (Negative) Urine Blood (Negative) Urine Nitrite (Negative) Urine Bilirubin (Negative) Urine Urobilinogen (<2.0) mg/dL Ur Leukocyte Esterase (Negative) Influenza Type A RNA Not Detected (Not Detectd) Influenza Type B (PCR) Not Detected (Not Detectd) 05/16/17 Range/Units 03:32 WBC (3.8-10.6) k/uL RBC (4.30-5.90) m/uL Hgb (13.0-17.5) gm/dL Hct (39.0-53.0) % MCV (80.0-100.0) fL MCH (25.0-35.0) pg MCHC (31.0-37.0) g/dL RDW (11.5-15.5) % Plt Count (150-450) k/uL Neutrophils % % Lymphocytes % % Monocytes % % Eosinophils % % Basophils % % Neutrophils # (1.3-7.7) k/uL Lymphocytes # (1.0-4.8) k/uL Monocytes # (0-1.0) k/uL Eosinophils # (0-0.7) k/uL Basophils # (0-0.2) k/uL PT (9.0-12.0) sec INR (<1.2) APTT (22.0-30.0) sec Sodium (137-145) mmol/L Potassium (3.5-5.1) mmol/L Chloride (98-107) mmol/L Carbon Dioxide (22-30) mmol/L Anion Gap mmol/L BUN (9-20) mg/dL Creatinine (0.66-1.25) mg/dL Est GFR (CKD-EPI)AfAm (>60 ml/min/1.73 sqM) Est GFR (CKD-EPI)NonAf (>60 ml/min/1.73 sqM) Glucose (74-99) mg/dL Plasma Lactic Acid Cash (0.7-2.0) mmol/L Calcium (8.4-10.2) mg/dL Total Bilirubin (0.2-1.3) mg/dL AST (17-59) U/L ALT (21-72) U/L Alkaline Phosphatase (38-126) U/L Troponin I (0.000-0.034) ng/mL Total Protein (6.3-8.2) g/dL Albumin (3.5-5.0) g/dL Urine Color Colorless Urine Appearance Clear (Clear) Urine pH 6.0 (5.0-8.0) Ur Specific [place] 1.009 (1.001-1.035) Urine Protein Negative (Negative) Urine Glucose (UA) Negative (Negative) Urine Ketones Negative (Negative) Urine Blood Negative (Negative) Urine Nitrite Negative (Negative) Urine Bilirubin Negative (Negative) Urine Urobilinogen <2.0 (<2.0) mg/dL Ur Leukocyte Esterase Negative (Negative) Influenza Type A RNA (Not Detectd) Influenza Type B (PCR) (Not Detectd) Disposition Clinical Impression: Pneumonia Disposition: ADMITTED IP TO THIS HOSP Condition: Fair Referrals: Al Ramirez MD [Primary Care Provider] - 1-2 days
[2017-05-16 03:57] LABS: Albumin 4.6 g/dL (3.5-5.0); Calcium 10.6 mg/dL (8.4-10.2); Potassium 4.8 mmol/L (3.5-5.1); Total Bilirubin 0.4 mg/dL (0.2-1.3); Total Protein 7.6 g/dL (6.3-8.2)
[2017-05-16] MEDS ORDERED: LEVOFLOXACIN 750MG-D5W PMX 750 MG in DEXTROSE/WATER 1 150ML.BAG IVPB STA (03:58)
--- NOTE | 2017-05-16 04:35 | XR ---
EXAM: XR Chest, 1 View CLINICAL HISTORY: ITS.REASON XR Reason: Fever TECHNIQUE: Frontal view of the chest. COMPARISON: No relevant prior studies available. FINDINGS: Lungs: There are bibasilar interstitial opacities. Pleural space: Unremarkable. No pneumothorax. Heart: Unremarkable. No cardiomegaly. Mediastinum: Unremarkable. Bones/joints: Unremarkable. IMPRESSION: Bibasilar interstitial opacities may be related to pneumonia or aspiration. Follow-up to ensure resolution.
[2017-05-16] MEDS ORDERED: PNEUMONIA PROTOCOL UTILIZED 1 EACH MISC PO PRN (06:12)
[2017-05-16] MEDS ORDERED: ALBUTEROL NEBULIZED 2.5 MG/3 ML INHALATION PRN (06:15)
[2017-05-16] MEDS: SYMBICORT 160-4.5 MCG INHALER INHALATION SCH ×2 (07:55→19:57)
[2017-05-16] MEDS: IPRATROPIUM-ALBUTEROL 3 ML NEB INHALATION SCH ×4 (07:55→19:57)
[2017-05-16] MEDS: GABAPENTIN 400 MG CAP PO SCH ×2 (08:39→20:48)
[2017-05-16] MEDS: MULTIVITAMINS, THERA 1 EACH TAB PO SCH (08:40)
[2017-05-16] MEDS: LISINOPRIL 5 MG TAB PO SCH (08:40)
[2017-05-16] MEDS: FUROSEMIDE 40 MG TAB PO SCH (08:40)
[2017-05-16] MEDS: SPIRONOLACTONE 25 MG TAB PO SCH (08:40)
[2017-05-16] MEDS: MONTELUKAST 10 MG TAB PO SCH (08:40)
[2017-05-16] MEDS ORDERED: ACETAMINOPHEN TAB 325 MG TAB PO PRN (08:51)
[2017-05-16] MEDS ORDERED: predniSONE 20 MG TAB PO SCH (09:00)
[2017-05-16] MEDS ORDERED: ATORVASTATIN 20 MG TAB PO SCH (09:00)
[2017-05-16] MEDS: THEOPHYLLINE 24 HOUR 400 MG CAP.ER.24H PO SCH (11:25)
[2017-05-16] MEDS: VIT A,C & E-LUTEIN-MINERALS 1 EACH TAB PO SCH ×2 (11:25→20:48)
--- NOTE | 2017-05-16 13:25 | P.CNPUL ---
History of Present Illness Consult date: 05/16/17 Reason for consult: dyspnea, cough, asthma, COPD, pneumonia, abnormal CXR/CT Chief complaint: Shortness of breath chest pain chest congestion cough phlegm production fev History of present illness: Consult dated 05/16/2017 76-year-old male who sees my partner in the office for his underlying asthma. He comes into the emergency department complaining of increasing shortness of breath chest congestion coughing minimal phlegm production and shaking chills. He also had a temperature of 103. He was seen in the emergency room and diagnosed with pneumonia and admitted to the hospital. Actually chest x-ray shows bibasilar infiltrates. Feeling only minimally better at this time. Still feels very weak and fatigued. Does not doing well. Complains of significant cough and phlegm. No chest pain or chest discomfort. No nausea vomiting or diarrhea. He's only been sick for a couple days prior to admission. In addition to asthma, he has a history of GI bleeding hyperlipidemia hypertension DJD macular degeneration prostate enlargement Pseudomonas pneumonia chronic sinus polyp bursitis and multiple surgical procedures in the past. The patient does have a bit better today than he did yesterday when he first came in. Feeling less short of breath and less chest congestion. Review of Systems A 12 point review of system is positive for fever chills cough shortness breath chest congestion wheezing difficulty breathing and some chest discomfort. Past Medical History Past Medical History: Asthma, COPD, Eye Disorder, Hyperlipidemia, Hypertension, Osteoarthritis (OA), Pneumonia, Prostate Disorder Additional Past Medical History / Comment(s): Macular degeneration of the R eye , osteoarthritis hands/feet and neck, intermittent lower back pain, chronic sinus polyps, 2016 where he was treated for a right olecranon bursitis/ cellulitis with sepsis, peptic ulcer disease pt denies previous history of GI bleed, pneumonias, PSEUDOMONIS PNEUMONIA AND SEPSIS POST BACK SX 2016, 02/2017 bronchoscopy with BAL showed persistent severe asthma, pseudomonas pneumonia/ broncheictasis, injured R ankle one month ago/still has some edema and using a cane. History of Any Multi-Drug Resistant Organisms: None Reported Past Surgical History: Back Surgery, Joint Replacement, Orthopedic Surgery, Prostate Surgery, Tonsillectomy Additional Past Surgical History / Comment(s): 02/2017 bronchoscopy with BAL, Low BACK SX, Multiple surgeries for nasal polyps, LEFT KNEE ATRHROSCOPY, left total knee arthroplasty, colonoscopy, benign growth removed from his L thumb, correction of a deviated nasal septum, eye for R eye injections for macular degeneration, TURP. Past Anesthesia/Blood Transfusion Reactions: No Reported Reaction Smoking Status: Former smoker - Past Family History Father Family Medical History: COPD Additional Family Medical History / Comment(s): emphysema Mother Additional Family Medical History / Comment(s): osteoporosis, lived to be 94 Son(s) Family Medical History: Cancer Additional Family Medical History / Comment(s): testicular cancer, mentally challenged Medications and Allergies Home Medications Medication Instructions Recorded Confirmed Type Albuterol Sulfate [Proair Hfa] 2 puff INHALATION RT-QID PRN 07/09/13 05/16/17 History Enalapril [Vasotec] 5 mg PO DAILY 07/09/13 05/16/17 History Fluticasone/Salmeterol [Advair 1 puff INHALATION RT-BID 07/09/13 05/16/17 History 500-50 Diskus] Furosemide 40 mg PO DAILY 09/08/15 05/16/17 History Multivitamins, Thera [Multivitamin 1 tab PO DAILY 09/08/15 05/16/17 History (formulary)] Vit C/E/Zn/Coppr/Lutein/Zeaxan 1 cap PO BID 09/08/15 05/16/17 History [Preservision Areds 2 Softgel] Montelukast [Singulair] 10 mg PO DAILY 11/08/15 05/16/17 History oxyCODONE-APAP 10-325MG [Percocet 1 tab PO Q6HR PRN 11/08/15 05/16/17 History 10-325 mg] Atorvastatin [Lipitor] 20 mg PO DAILY 01/24/17 05/16/17 History Calcium Carbonate/Vitamin D3 1 tab PO TID 01/24/17 05/16/17 History [Calcium 500-Vit D3 200 Tablet] Ipratropium-Albuterol Nebulize 3 ml INHALATION RT-QID 01/24/17 05/16/17 History [Duoneb 0.5 mg-3 mg/3 ml Soln] predniSONE 20 mg PO DAILY 03/04/17 05/16/17 History Glucosam/Sergio-Msm1/C/Chandu/Bosw 1 tab PO BID 05/16/17 05/16/17 History [Glucosamine-Chondroitin Tablet] Latanoprost [Xalatan 0.005%] 1 drop RIGHT EYE DAILY 05/16/17 05/16/17 History [place]-3 Fatty Acids/Fish Oil [Fish 1 cap PO DAILY 05/16/17 05/16/17 History Oil 1,000 mg Softgel] Theophylline Anhydrous 400 mg PO BID 05/16/17 05/16/17 History [Theophylline] Allergies Allergy/AdvReac Type Severity Reaction Status Date / Time aspirin Allergy does not Verified 05/16/17 08:22 take r/t hx of nasal polyps NSAIDS (Non-Steroidal Allergy states was Verified 05/16/17 08:22 Anti-Inflamma told never to take Physical Exam Osteopathic Statement: *. No significant issues noted on an osteopathic structural exam other than those noted in the History and Physical/Consult. Vitals: Vital Signs Temp Pulse Pulse Resp BP BP Pulse Ox 05/16/17 11:16 100 05/16/17 11:02 96 05/16/17 08:06 104 H 05/16/17 08:00 16 05/16/17 07:58 100 05/16/17 07:00 99.9 F H 101 H 16 102/68 96 05/16/17 06:36 99.3 F 101 H 18 99/58 96 05/16/17 05:40 101.1 F H 105 H 19 115/68 97 05/16/17 04:21 103.1 F H 110 H 20 112/59 97 05/16/17 03:01 103.6 F H 05/16/17 02:42 99.5 F 114 H 22 134/68 95 Intake and Output 05/15/17 05/16/17 05/16/17 22:59 06:59 14:59 Other: Voiding Method Toilet Weight 91.626 kg No acute distress, oriented 3. Nasal O2 in place. No audible wheezing. HEENT examination is grossly unremarkable. Mucous membranes are moist. No oral lesions. Neck supple. Full range of motion. No adenopathy thyromegaly or neck vein distention. Cardiovascular examination reveals regular rhythm rate. S1-S2 normal. No S3 or S4. No discernible murmur noted. Lungs reveal diffuse expiratory wheezes and rhonchi. Breath sounds are diminished. There is some crackles at the bases. There is prolongation on forced maneuver. Adventitious lung sounds are more prominent on forced maneuver. Abdomen soft bowel sounds are heard. No masses or tenderness. Extremities are intact. No cyanosis clubbing or edema. Skin is without rash or lesion. Neurologic examination is brief but nonfocal. Results - Laboratory Findings CBC and BMP: 05/16/17 03:00 05/16/17 03:00 PT/INR, D-dimer PT 9.5 sec (9.0-12.0) 05/16/17 03:00 INR 0.9 (<1.2) 05/16/17 03:00 Abnormal lab findings: Abnormal Labs 05/16/17 05/16/17 05/16/17 03:00 03:00 03:00 WBC 15.2 H RBC 3.83 L Hgb 11.8 L Hct 35.2 L Neutrophils # 12.3 H Monocytes # 1.4 H APTT 18.8 L Chloride 94 L BUN 39 H Calcium 10.6 H - Diagnostic Findings Chest x-ray: image reviewed (Labs x-rays a medications are reviewed. Chest x- ray demonstrates bibasilar infiltrates.) Assessment and Plan Assessment: Assessment Bibasilar pneumonia Asthma exacerbation History of GI bleed Hyperlipidemia Hypertension Osteoarthritis Previous history of Pseudomonas pneumonia Multiple other medical problems and comorbidities as listed in the consultation/ H&P done by the ER physician. Plan: Plan dated 05/26/2017 Labs x-rays a medications are all reviewed. We'll make sure there is on the proper medications including antibiotics bronchodilators, etc. Additional recommendations and suggestions are forthcoming. Prognosis is guarded. Recover. We'll watch very closely. Sputum sample possible. Blood cultures 2. UA C&S, as well as other testing to be done. Time with Patient: Greater than 30
[2017-05-16] MEDS: methylPREDNISolone SOD SUCCI 125 MG/2 ML VIAL IV SCH (16:34)
[2017-05-16 17:49] LABS: Glucose,Whole Blood 194 mg/dL (75-99)
[2017-05-16] MEDS: INSULIN ASPART 100 UNIT/ML 1 ML 10 ML VIAL SQ SCH ×2 (18:16→20:48)
[2017-05-16] MEDS: oxyCODONE-APAP 10-325MG 1 EACH TAB PO PRN (18:20)
[2017-05-16 20:21] LABS: Glucose,Whole Blood 203 mg/dL (75-99)
[2017-05-16] MEDS: ATORVASTATIN 20 MG TAB PO SCH (20:48)
[2017-05-17] MEDS: methylPREDNISolone SOD SUCCI 125 MG/2 ML VIAL IV SCH ×4 (01:04→23:42)
[2017-05-17 01:50] LABS: Hemoglobin A1C 6.4 % (4.0-6.0)
[2017-05-17 07:44] LABS: Glucose,Whole Blood 181 mg/dL (75-99)
[2017-05-17] MEDS: cefTRIAXone IN SWFI 1,000 MG/10 ML SYRINGE IVP SCH (08:07)
[2017-05-17] MEDS: INSULIN ASPART 100 UNIT/ML 1 ML 10 ML VIAL SQ SCH ×4 (08:09→21:31)
[2017-05-17] MEDS: IPRATROPIUM-ALBUTEROL 3 ML NEB INHALATION SCH ×4 (08:12→19:10)
[2017-05-17] MEDS: SYMBICORT 160-4.5 MCG INHALER INHALATION SCH ×2 (08:13→19:10)
[2017-05-17] MEDS: AZITHROMYCIN 500 MG TAB PO SCH (08:51)
[2017-05-17] MEDS: LATANOPROST 0.005% OPHTH DROPS 2.5 ML BTL RIGHT EYE SCH (08:52)
[2017-05-17] MEDS: GABAPENTIN 400 MG CAP PO SCH ×2 (08:52→21:17)
[2017-05-17] MEDS: FUROSEMIDE 40 MG TAB PO SCH (08:52)
[2017-05-17] MEDS: LISINOPRIL 5 MG TAB PO SCH (08:52)
[2017-05-17] MEDS: THEOPHYLLINE 24 HOUR 400 MG CAP.ER.24H PO SCH (08:53)
[2017-05-17] MEDS: SPIRONOLACTONE 25 MG TAB PO SCH (08:53)
[2017-05-17] MEDS: MULTIVITAMINS, THERA 1 EACH TAB PO SCH (08:53)
[2017-05-17] MEDS: MONTELUKAST 10 MG TAB PO SCH (08:53)
[2017-05-17] MEDS: VIT A,C & E-LUTEIN-MINERALS 1 EACH TAB PO SCH ×2 (08:53→21:17)
[2017-05-17] MEDS ORDERED: LEVOFLOXACIN 750MG-D5W PMX 750 MG in DEXTROSE/WATER 1 150ML.BAG IVPB SCH (09:00)
[2017-05-17 11:23] LABS: Glucose,Whole Blood 182 mg/dL (75-99)
--- NOTE | 2017-05-17 12:41 | P.PN ---
Subjective Progress Note Date: 05/17/17 Principal diagnosis: Bibasilar pneumonia, acute asthma exacerbation 76-year-old male who sees my partner in the office for his underlying asthma. He comes into the emergency department complaining of increasing shortness of breath chest congestion coughing minimal phlegm production and shaking chills. He also had a temperature of 103. He was seen in the emergency room and diagnosed with pneumonia and admitted to the hospital. Actually chest x-ray shows bibasilar infiltrates. Feeling only minimally better at this time. Still feels very weak and fatigued. Does not doing well. Complains of significant cough and phlegm. No chest pain or chest discomfort. No nausea vomiting or diarrhea. He's only been sick for a couple days prior to admission. In addition to asthma, he has a history of GI bleeding hyperlipidemia hypertension DJD macular degeneration prostate enlargement Pseudomonas pneumonia chronic sinus polyp bursitis and multiple surgical procedures in the past. The patient does have a bit better today than he did yesterday when he first came in. Feeling less short of breath and less chest congestion. On 05/17/2017 patient seen in follow-up. Doing a bit better today, less sweaty , denies any worsening dyspnea. Lung sounds are still positive for coarse rhonchi and wheezes. The patient on room air, O2 sat at 92%, afebrile. Blood, urine and sputum cultures remain negative. She is on a combination of azithromycin and Rocephin, nebulized treatments, IV steroids. Overall improving. But will benefit from another day of treatment. Objective - Vital Signs Vital signs: Vital Signs Temp 97.5 F L 05/17/17 07:00 Pulse 84 05/17/17 12:03 Resp 18 05/17/17 08:13 BP 98/58 05/17/17 07:00 Pulse Ox 92 L 05/17/17 07:00 Intake & Output 05/16/17 05/17/17 05/17/17 18:59 06:59 18:59 Intake Total 200 Balance 200 Intake: Oral 200 Other: Voiding Method Toilet Toilet Toilet # Voids 4 1 1 - Exam No acute distress, oriented 3. Nasal O2 in place. No audible wheezing. HEENT examination is grossly unremarkable. Mucous membranes are moist. No oral lesions. Neck supple. Full range of motion. No adenopathy thyromegaly or neck vein distention. Cardiovascular examination reveals regular rhythm rate. S1-S2 normal. No S3 or S4. No discernible murmur noted. Lungs reveal diffuse expiratory wheezes and rhonchi. Breath sounds are diminished. There is prolongation on forced maneuver. Adventitious lung sounds are more prominent on forced maneuver. Abdomen soft bowel sounds are heard. No masses or tenderness. Extremities are intact. No cyanosis clubbing or edema. Skin is without rash or lesion. Neurologic examination is brief but nonfocal. - Labs CBC & Chem 7: 05/16/17 03:00 05/16/17 03:00 Labs: Abnormal Lab Results - Last 24 Hours (Table) 05/16/17 05/16/17 05/16/17 Range/Units 03:00 17:47 20:20 POC Glucose (mg/dL) 194 H 203 H (75-99) mg/dL Hemoglobin A1c 6.4 H (4.0-6.0) % 05/17/17 05/17/17 Range/Units 07:28 11:21 POC Glucose (mg/dL) 181 H 182 H (75-99) mg/dL Hemoglobin A1c (4.0-6.0) % Microbiology - Last 24 Hours (Table) 05/16/17 03:32 Urine Culture - Final Urine,Voided 05/16/17 18:00 Gram Stain - Preliminary Sputum Sputum Culture - Preliminary 05/16/17 04:13 Blood Culture - Preliminary Blood No Growth after 24 hours 05/16/17 03:00 Blood Culture - Preliminary Blood No Growth after 24 hours Assessment and Plan Plan: Assessment: Bibasilar pneumonia Asthma exacerbation History of GI bleed Hyperlipidemia Hypertension Osteoarthritis Previous history of Pseudomonas pneumonia Multiple other medical problems and comorbidities as listed in the consultation/ H&P done by the ER physician. Plan: Patient is doing better, less dyspneic, less diaphoretic. Vital signs are stable, patient is afebrile. Still congested and wheezy, continue current medical treatment, continue Rocephin and azithromycin, sputum, blood and urine cultures are negative so far. Continue with nebulized treatments, and IV steroids. Patient will benefit from another 20 of treatment. We'll continue to monitor. I performed a history & physical examination of the patient and discussed their management with my nurse practitioner, Charito Cabral. I reviewed the nurse practitioner's note and agree with the documented findings and plan of care. Lung sounds are positive for a few scattered wheezes and rhonchi. The findings and the impression was discussed with the patient. I attest to the documentation by the nurse practitioner. Time with Patient: Less than 30
[2017-05-17 17:17] LABS: Glucose,Whole Blood 180 mg/dL (75-99)
[2017-05-17] MEDS: oxyCODONE-APAP 10-325MG 1 EACH TAB PO PRN (21:16)
[2017-05-17] MEDS: ATORVASTATIN 20 MG TAB PO SCH (21:16)
[2017-05-17 21:49] LABS: Glucose,Whole Blood 194 mg/dL (75-99)
[2017-05-18] MEDS: IPRATROPIUM-ALBUTEROL 3 ML NEB INHALATION SCH ×4 (06:57→19:26)
[2017-05-18] MEDS: SYMBICORT 160-4.5 MCG INHALER INHALATION SCH ×2 (06:58→19:24)
[2017-05-18 07:14] LABS: Glucose,Whole Blood 143 mg/dL (75-99)
[2017-05-18] MEDS: LATANOPROST 0.005% OPHTH DROPS 2.5 ML BTL RIGHT EYE SCH (07:46)
[2017-05-18] MEDS: FUROSEMIDE 40 MG TAB PO SCH (07:46)
[2017-05-18] MEDS: AZITHROMYCIN 500 MG TAB PO SCH (07:46)
[2017-05-18] MEDS: GABAPENTIN 400 MG CAP PO SCH ×2 (07:46→21:58)
[2017-05-18] MEDS: THEOPHYLLINE 24 HOUR 400 MG CAP.ER.24H PO SCH (07:47)
[2017-05-18] MEDS: MONTELUKAST 10 MG TAB PO SCH (07:47)
[2017-05-18] MEDS: LISINOPRIL 5 MG TAB PO SCH (07:47)
[2017-05-18] MEDS: VIT A,C & E-LUTEIN-MINERALS 1 EACH TAB PO SCH ×2 (07:47→21:58)
[2017-05-18] MEDS: INSULIN ASPART 100 UNIT/ML 1 ML 10 ML VIAL SQ SCH ×4 (07:47→21:58)
[2017-05-18] MEDS: SPIRONOLACTONE 25 MG TAB PO SCH (07:47)
[2017-05-18] MEDS: MULTIVITAMINS, THERA 1 EACH TAB PO SCH (07:47)
[2017-05-18] MEDS: methylPREDNISolone SOD SUCCI 125 MG/2 ML VIAL IV SCH ×3 (08:15→23:20)
[2017-05-18] MEDS: cefTRIAXone IN SWFI 1,000 MG/10 ML SYRINGE IVP SCH (08:47)
--- NOTE | 2017-05-18 10:25 | HP ---
HISTORY AND PHYSICAL DATE OF ADMISSION: 05/16/2017 DATE OF SERVICE: 05/16/2017 This is a 76-year-old white male who was brought to the emergency room with complaints of fever, chills, shakiness, shortness of breath and cough. The patient's symptoms started about 1 a.m. while he was trying to sleep and he has a previous history of similar symptoms and at that time, he was found to have pneumonia. Because these symptoms were exactly like the symptoms when he had pneumonia, patient was brought to the emergency room. In the ER, his chest x-ray showed bibasilar infiltrates and his CBC showed WBC count of 15.2, hemoglobin 11.8, and platelet count 299,000. His sodium 139, potassium 4.2, and cardiac enzymes were normal. Troponin was less than 0.012. Urinalysis was negative. His serum calcium was slightly elevated, it was 10.6. Patient was admitted to the hospital for further evaluation and treatment. PAST MEDICAL HISTORY: His past medical history reveals that he has longstanding history of chronic obstructive pulmonary disease and asthma and he has been following with Dr. Lou for his pulmonary problems. He also is known to have hypertensive cardiovascular disease, degenerative arthritis of multiple joints and has had a left total knee arthroplasty in the past and also had back surgery and transurethral resection of prostate. MEDICATIONS: His current medications include: 1. Albuterol inhaler 2 puffs q.i.d. p.r.n. 2. Enalapril 5 mg daily. 3. Advair inhaler 1 puff b.i.d. 4. Lasix 40 mg p.o. daily. 5. Aldactone 25 mg p.o. daily. 6. Singulair 10 mg daily at bedtime. 7. Percocet 10/325 one q.8 hours p.r.n. 8. Neurontin 400 mg p.o. b.i.d. 9. DuoNeb nebulizer q.i.d. 10.Prednisone 40 mg daily. 11.Theophylline 400 mg p.o. b.i.d. 12.He also is taking multiple [id number] vitamins and minerals. ALLERGIES: He has no known drug allergies. He does not smoke. He drinks alcohol occasionally. FAMILY HISTORY: Positive for heart disease, cancer and stroke. REVIEW OF SYSTEMS: Patient denies any headache. Appetite has been good. Bowels regular. He denies any chest pain. He has severe shortness of breath and cough and wheezing. He has no abdominal pain. He has no polyuria or dysuria. He has no neurological symptoms. PHYSICAL EXAMINATION: Physical examination reveals a 76-year-old white male, moderately obese. He is alert and oriented. He is using nasal oxygen, but he is not in acute distress now. Temperature 103.6, pulse 110 per minute, respirations 20 per minute, blood pressure 112/59, O2 saturation 97%. There is no jaundice. There is no generalized lymphadenopathy. There are no petechia or bruises. Examination of the ENT: Negative. Neck is supple. There is no jugular venous distention. There is no goiter and there is no carotid bruit. Heart is in sinus tachycardia. Lungs reveal diminished breath sounds at both bases with scattered rales and rhonchi and also expiratory wheeze. ABDOMEN: Soft and nontender. There is no mass palpable. Examination of the lower extremities reveal no pitting edema. Neurologic examination does not reveal any localizing signs. IMPRESSION: 1. Bilateral basilar pneumonia. 2. Chronic obstructive pulmonary disease with acute exacerbation. 3. Hypertensive cardiovascular disease. 4. Degenerative arthritis multiple joints with a past history of left total knee arthroplasty and back surgery. 5. Benign prostatic hypertrophy, status post TURP. 6. Hypercalcemia. PLAN: Patient will be admitted to the hospital. We will start him on IV antibiotics, IV Solu- Medrol and updraft treatments and will have Dr. Lou, his health promotion specialist to see the patient in consultation and will place him back on his home medications and because he has hypercalcemia, we will hold his calcium and vitamin D. Prognosis guarded. The diagnosis, prognosis and therapeutic plans were discussed in detail with the patient today. MMODL / IJN: [id number] /
[2017-05-18 11:56] LABS: Glucose,Whole Blood 243 mg/dL (75-99)
--- NOTE | 2017-05-18 15:06 | P.PN ---
Subjective Progress Note Date: 05/18/17 Principal diagnosis: Bibasilar pneumonia, acute asthma exacerbation 76-year-old male who sees my partner in the office for his underlying asthma. He comes into the emergency department complaining of increasing shortness of breath chest congestion coughing minimal phlegm production and shaking chills. He also had a temperature of 103. He was seen in the emergency room and diagnosed with pneumonia and admitted to the hospital. Actually chest x-ray shows bibasilar infiltrates. Feeling only minimally better at this time. Still feels very weak and fatigued. Does not doing well. Complains of significant cough and phlegm. No chest pain or chest discomfort. No nausea vomiting or diarrhea. He's only been sick for a couple days prior to admission. In addition to asthma, he has a history of GI bleeding hyperlipidemia hypertension DJD macular degeneration prostate enlargement Pseudomonas pneumonia chronic sinus polyp bursitis and multiple surgical procedures in the past. The patient does have a bit better today than he did yesterday when he first came in. Feeling less short of breath and less chest congestion. On 05/17/2017 patient seen in follow-up. Doing a bit better today, less sweaty , denies any worsening dyspnea. Lung sounds are still positive for coarse rhonchi and wheezes. The patient on room air, O2 sat at 92%, afebrile. Blood, urine and sputum cultures remain negative. She is on a combination of azithromycin and Rocephin, nebulized treatments, IV steroids. Overall improving. But will benefit from another day of treatment. On 05/18/2017 patient seen in follow-up. Denies any worsening dyspnea, denies any fever or chills, denies any hemoptysis. His complaint today is mild fatigue , patient was not able to rest very well last night. he did ambulate in the hallway last night, tolerated activity well. He is on room air, with O2 sat at 94%, afebrile, vital signs are stable. Lung sounds are clear to auscultation, no rhonchi, no rales no wheezes noted. Blood, urine cultures are negative, sputum culture results is pending. Patient has been treated with a combination of azithromycin and Rocephin for his community-acquired pneumonia, with good clinical response. From pulmonary standpoint patient is stable for discharge home today, on an outpatient course of Ceftin, prednisone taper, and patient's maintenance inhalers and nebulized treatments. Follow-up with Dr. Young in the office next week. Objective - Vital Signs Vital signs: Vital Signs Temp 97.7 F 05/18/17 07:00 Pulse 95 05/18/17 11:11 Resp 20 05/18/17 07:00 BP 130/76 05/18/17 07:00 Pulse Ox 94 L 05/18/17 07:00 Intake & Output 05/17/17 05/18/17 05/18/17 18:59 06:59 18:59 Intake Total 900 Balance 900 Weight 91.626 kg Intake: Oral 900 Other: Voiding Method Toilet Toilet Toilet # Voids 3 2 4 # Bowel Movements 1 - Exam No acute distress, oriented 3. Nasal O2 in place. No audible wheezing. HEENT examination is grossly unremarkable. Mucous membranes are moist. No oral lesions. Neck supple. Full range of motion. No adenopathy thyromegaly or neck vein distention. Cardiovascular examination reveals regular rhythm rate. S1-S2 normal. No S3 or S4. No discernible murmur noted. Breath sounds are diminished. There is prolongation on forced maneuver. No wheezes, no rhonchi or rales Abdomen soft bowel sounds are heard. No masses or tenderness. Extremities are intact. No cyanosis clubbing or edema. Skin is without rash or lesion. Neurologic examination is brief but nonfocal. - Labs CBC & Chem 7: 05/16/17 03:00 05/16/17 03:00 Labs: Abnormal Lab Results - Last 24 Hours (Table) 05/17/17 05/17/17 05/18/17 Range/Units 17:15 21:30 07:13 POC Glucose (mg/dL) 180 H 194 H 143 H (75-99) mg/dL 05/18/17 Range/Units 11:55 POC Glucose (mg/dL) 243 H (75-99) mg/dL Microbiology - Last 24 Hours (Table) 05/16/17 04:13 Blood Culture - Preliminary Blood No Growth after 48 hours 05/16/17 03:00 Blood Culture - Preliminary Blood No Growth after 48 hours 05/16/17 03:32 Urine Culture - Final Urine,Voided Assessment and Plan Plan: Assessment: Bibasilar pneumonia Asthma exacerbation History of GI bleed Hyperlipidemia Hypertension Osteoarthritis Previous history of Pseudomonas pneumonia Multiple other medical problems and comorbidities as listed in the consultation/ H&P done by the ER physician. Plan: Patient continues to improve, less dyspneic, less diaphoretic, denies any fever or chills, denies any hemoptysis. Vital signs are stable, patient is afebrile. Microbiology results have been negative so far. Patient has been treated with a combination of azithromycin and Rocephin, with good clinical response. Patient has been tolerating ambulation, denies any worsening dyspnea. Requesting to go home today, states he is not able to rest very well in the hospital. From pulmonary standpoint patient is stable for discharge home today , on an outpatient course of oral Levaquin for 8 more days at 750 mg daily, prednisone taper, and his maintenance inhalers and nebulized treatments. Follow -up appointment has been set for Dr. Young in the office for 05/26/2017 at 2: 15 in the afternoon. I performed a history & physical examination of the patient and discussed their management with my nurse practitioner, Charito Carbal. I reviewed the nurse practitioner's note and agree with the documented findings and plan of care. Lung sounds are clear. The findings and the impression was discussed with the patient. I attest to the documentation by the nurse practitioner. Time with Patient: Less than 30
--- NOTE | 2017-05-18 16:37 | XR ---
EXAMINATION TYPE: XR chest 2V DATE OF EXAM: 05/18/2017 COMPARISON: Chest x-ray from 2 days ago and older studies. HISTORY: Pneumonia progress study. TECHNIQUE: Frontal and lateral views of the chest are obtained. FINDINGS: There is persistent bibasilar opacity. There is background chronic parenchymal change wit hout suspicious new focal airspace opacity, pleural effusion, or pneumothorax seen bilaterally. The c ardiac silhouette size is enlarged. There is multilevel spurring in the thoracic spine redemonstrated . IMPRESSION: Persistent bibasilar infiltrate and/or atelectasis new from older studies not significant ly changed from most recent study.
[2017-05-18 17:12] LABS: Glucose,Whole Blood 108 mg/dL (75-99)
[2017-05-18 20:34] LABS: Glucose,Whole Blood 268 mg/dL (75-99)
[2017-05-18] MEDS: ATORVASTATIN 20 MG TAB PO SCH (21:59)
[2017-05-18] MEDS: oxyCODONE-APAP 10-325MG 1 EACH TAB PO PRN (21:59)
[2017-05-19 06:54] LABS: Glucose,Whole Blood 207 mg/dL (75-99)
[2017-05-19 07:25] VITALS: BP 119/78; TEMP 97.7
[2017-05-19] MEDS: AZITHROMYCIN 500 MG TAB PO SCH (07:54)
[2017-05-19] MEDS: GABAPENTIN 400 MG CAP PO SCH (07:54)
[2017-05-19] MEDS: FUROSEMIDE 40 MG TAB PO SCH (07:54)
[2017-05-19] MEDS: MONTELUKAST 10 MG TAB PO SCH (07:55)
[2017-05-19] MEDS: LATANOPROST 0.005% OPHTH DROPS 2.5 ML BTL RIGHT EYE SCH (07:55)
[2017-05-19] MEDS: SPIRONOLACTONE 25 MG TAB PO SCH (07:55)
[2017-05-19] MEDS: MULTIVITAMINS, THERA 1 EACH TAB PO SCH (07:55)
[2017-05-19] MEDS: THEOPHYLLINE 24 HOUR 400 MG CAP.ER.24H PO SCH (07:55)
[2017-05-19] MEDS: LISINOPRIL 5 MG TAB PO SCH (07:55)
[2017-05-19] MEDS: VIT A,C & E-LUTEIN-MINERALS 1 EACH TAB PO SCH (07:56)
[2017-05-19] MEDS: INSULIN ASPART 100 UNIT/ML 1 ML 10 ML VIAL SQ SCH ×2 (07:59→13:00)
[2017-05-19] MEDS: IPRATROPIUM-ALBUTEROL 3 ML NEB INHALATION SCH ×2 (08:19→11:07)
[2017-05-19 08:42] VITALS: RESP 16
[2017-05-19] MEDS: methylPREDNISolone SOD SUCCI 125 MG/2 ML VIAL IV SCH (09:36)
[2017-05-19] MEDS: cefTRIAXone IN SWFI 1,000 MG/10 ML SYRINGE IVP SCH (09:36)
[2017-05-19] MEDS: SYMBICORT 160-4.5 MCG INHALER INHALATION SCH (11:06)
[2017-05-19 11:10] VITALS: PULSE 88
[2017-05-19 11:34] LABS: Glucose,Whole Blood 84 mg/dL (75-99)
--- NOTE | 2017-05-19 13:13 | CDI ---
Assessment: Patient was treated for bibasilar pneumonia, and acute exacerbation of moderate persistent asthma Documentation Clarification Form Date: 05/19/2017 01:09:00 PM From: Dena Franco CCS, CCDS Admit Date: 05/16/2017 6:12:00 AM Patient Name: Paqsuale Montanez V Visit Number: [id number] Discharge Date: ATTENTION: The Clinical Documentation Specialists (CDI) and [facility] Coding Staff appreciate your assistance in clarifying documentation. Please respond to the clarification below the line at the bottom and electronically sign. The CDI & [facility] Coding staff will review the response and follow-up if needed. Please note: Queries are made part of the Legal Health Record. If you have any questions, please contact the author of this message via ITS. Dr. Júnior Ravi: Asthma is documented in the pulmonary notes as "asthma exacerbation". Patient history/risk factors: COPD, Asthma, Hypertensive Cardiovascular Disease on home nebulizer treatments and steroids (Prednisone). Clinical Indicators: Presented with chest pain, SOB, fever, shaking chills and mild cough. Radiology: Bibasilar interstitial opacities may be related to pneumonia or aspiration. Vital Signs: T 99.5 - 103.6; P 114, R 22 (sob, labored), PO 95 ra Treatment: Blood cultures, IV Levaquin, Pneumonia Protocol, Albuterol Neb INH, Budesonide INH, Ipratropium-Albuteraol INH, po Lasix, IV Solumedrol, O2L nc. In your professional opinion, can you please further specify the asthma diagnosis, if known? Severity: o Mild intermittent o Mild persistent o Moderate persistent o Severe persistent o Other, please specify o Unable to determine Form or Type: o Cough variant o Extrinsic allergic o Idiosyncratic o Intrinsic nonallergic o Late-onset o Mixed o Other, please specify o Unable to determine Please continue to document in your progress notes and discharge summary in order to capture severity of illness and risk of mortality. Include clinical findings that support your diagnosis. MTDD
--- NOTE | 2017-05-19 14:08 | P.PN ---
Subjective Progress Note Date: 05/19/17 Principal diagnosis: Bibasilar pneumonia, acute asthma exacerbation 76-year-old male who sees my partner in the office for his underlying asthma. He comes into the emergency department complaining of increasing shortness of breath chest congestion coughing minimal phlegm production and shaking chills. He also had a temperature of 103. He was seen in the emergency room and diagnosed with pneumonia and admitted to the hospital. Actually chest x-ray shows bibasilar infiltrates. Feeling only minimally better at this time. Still feels very weak and fatigued. Does not doing well. Complains of significant cough and phlegm. No chest pain or chest discomfort. No nausea vomiting or diarrhea. He's only been sick for a couple days prior to admission. In addition to asthma, he has a history of GI bleeding hyperlipidemia hypertension DJD macular degeneration prostate enlargement Pseudomonas pneumonia chronic sinus polyp bursitis and multiple surgical procedures in the past. The patient does have a bit better today than he did yesterday when he first came in. Feeling less short of breath and less chest congestion. On 05/17/2017 patient seen in follow-up. Doing a bit better today, less sweaty , denies any worsening dyspnea. Lung sounds are still positive for coarse rhonchi and wheezes. The patient on room air, O2 sat at 92%, afebrile. Blood, urine and sputum cultures remain negative. She is on a combination of azithromycin and Rocephin, nebulized treatments, IV steroids. Overall improving. But will benefit from another day of treatment. On 05/18/2017 patient seen in follow-up. Denies any worsening dyspnea, denies any fever or chills, denies any hemoptysis. His complaint today is mild fatigue , patient was not able to rest very well last night. he did ambulate in the hallway last night, tolerated activity well. He is on room air, with O2 sat at 94%, afebrile, vital signs are stable. Lung sounds are clear to auscultation, no rhonchi, no rales no wheezes noted. Blood, urine cultures are negative, sputum culture results is pending. Patient has been treated with a combination of azithromycin and Rocephin for his community-acquired pneumonia, with good clinical response. From pulmonary standpoint patient is stable for discharge home today, on an outpatient course of Ceftin, prednisone taper, and patient's maintenance inhalers and nebulized treatments. Follow-up with Dr. Young in the office next week. On 05/19/2017 patient seen in follow-up. Continues to improve, seen ambulating in the hallway, on room air, tolerating activity very well. Denies any worsening dyspnea, denies any fever or chills, denies any chest wall discomfort. Vital signs are stable, patient is afebrile, currently on room air with O2 sat at 95%. No chest congestion, no wheezing. Lung sounds are clear on auscultation. Patient has been treated with a combination of Zithromax and Rocephin for his bibasilar community acquired pneumonia. Sputum, blood and urine cultures are negative to date. Today's chest x-ray was reviewed, and showed persistent bibasilar infiltrates and atelectasis, no significant change since admission. But clinically patient continues to improve. Less coughing, less dyspnea, less congestion. From pulmonary standpoint patient is stable for discharge home today. Objective - Vital Signs Vital signs: Vital Signs Temp 97.7 F 05/19/17 07:25 Pulse 88 05/19/17 11:19 Resp 16 05/19/17 08:33 BP 119/78 05/19/17 07:25 Pulse Ox 95 05/19/17 07:25 Intake & Output 05/18/17 05/19/17 05/19/17 18:59 06:59 18:59 Intake Total 1690 Balance 1690 Weight 91.626 kg Intake: Oral 1690 Other: Voiding Method Toilet Toilet Toilet # Voids 4 2 # Bowel Movements 1 - Exam No acute distress, oriented 3. Nasal O2 in place. No audible wheezing. HEENT examination is grossly unremarkable. Mucous membranes are moist. No oral lesions. Neck supple. Full range of motion. No adenopathy thyromegaly or neck vein distention. Cardiovascular examination reveals regular rhythm rate. S1-S2 normal. No S3 or S4. No discernible murmur noted. Breath sounds are clear, despite ligation of the expiratory phase, no rhonchi or wheezes appreciated on today's exam. Abdomen soft bowel sounds are heard. No masses or tenderness. Extremities are intact. No cyanosis clubbing or edema. Skin is without rash or lesion. Neurologic examination is brief but nonfocal. - Labs CBC & Chem 7: 05/16/17 03:00 05/16/17 03:00 Labs: Abnormal Lab Results - Last 24 Hours (Table) 05/18/17 05/18/17 05/19/17 Range/Units 17:11 20:29 06:53 POC Glucose (mg/dL) 108 H 268 H 207 H (75-99) mg/dL Microbiology - Last 24 Hours (Table) 05/16/17 18:00 Gram Stain - Final Sputum Sputum Culture - Final 05/16/17 04:13 Blood Culture - Preliminary Blood No Growth after 72 hours 05/16/17 03:00 Blood Culture - Preliminary Blood No Growth after 72 hours Assessment and Plan Plan: Assessment: Bibasilar pneumonia Acute exacerbation of moderate persistent asthma History of GI bleed History of mild COPD, with baseline FEV1 is 88% of predicted value Hyperlipidemia Hypertension Osteoarthritis Previous history of Pseudomonas pneumonia Multiple other medical problems and comorbidities as listed in the consultation/ H&P done by the ER physician. Plan: Patient is afebrile, vital signs are stable, he starting ambulation, currently on room air, denies any fever or chills. Denies any worsening dyspnea. He has been treated with Zithromax and Rocephin for his community-acquired bibasilar pneumonia. Today's chest x-ray was reviewed, shows persistence of bibasilar infiltrates and atelectasis. But clinically patient has improved. Patient is stable for discharge home today, he will continue on 8 day course of Ceftin 500 mg twice a day, prednisone taper, down to his maintenance dose of 20 mg daily. We'll continue on his maintenance inhalers and nebulized treatments. Follow-up appointment was set up with Dr. Young in the office. Patient verbalizes frustration with his day-to-day decreased exercise capacity related to his chronic dyspnea, this will be addressed in the follow-up appointment with Dr. Young. I performed a history & physical examination of the patient and discussed their management with my nurse practitioner, Charito Cabral. I reviewed the nurse practitioner's note and agree with the documented findings and plan of care. Lung sounds are clear. The findings and the impression was discussed with the patient. I attest to the documentation by the nurse practitioner. Time with Patient: Less than 30
--- NOTE | 2017-05-19 15:06 | PN ---
PROGRESS NOTE DATE OF SERVICE: 05/17/2017 This is a 76-year-old white male who has longstanding history of chronic obstructive pulmonary disease and asthma and patient was brought to the emergency room with complaints of fever, chills, difficulty in breathing and cough and in the ER, he was found to have bilateral basilar infiltrate and patient was admitted to the hospital for evaluation and treatment. Patient was started on IV antibiotics and currently he is getting Rocephin and Zithromax. Patient also is getting updraft treatments and has been started on IV Solu-Medrol. Patient was seen by Dr. 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 Patient feeling slightly better today and still very short of breath and dyspnea on exertion. Patient's temperature has come down. He has been placed back on his previous home medications. He has been on Lasix, spironolactone, and prednisone and he also has been on Percocet for low back pain. His vital signs are otherwise stable. We will continue current medications. Prognosis guarded. The diagnosis, prognosis and therapeutic plans were discussed in detail with the patient today, also. MMODL / IJN: [id number] /
--- NOTE | 2017-05-19 15:12 | PN ---
PROGRESS NOTE DATE OF SERVICE: 05/18/2017 This is a 76-year-old white male who was admitted with fever, chills, and severe shortness of breath and cough. In the ER, he was found to have leukocytosis and pulmonary infiltrate in the basal area bilaterally. Patient was admitted with a diagnosis of bibasilar pneumonia. Patient was started on IV antibiotics and currently he is receiving Rocephin and Zithromax. Patient also getting updraft treatments and IV Solu-Medrol and he has been placed back on his previous home medications. He is known to have hypertensive cardiovascular disease and low back pain and his pain medications including Percocet has been ordered. The patient is feeling better today, but he is dyspneic on exertion. He is still getting IV Solu-Medrol and IV antibiotics. Will get a progress chest x-ray today and if he shows improvement and his condition is improving, he will be discharged home tomorrow. Prognosis is guarded. MMODL / BRIDGETN: [id number] /
== END 2017-05-19 14:10 | disposition home or self-care (01) | DRG 194 ==
LOC: EC 02:40 → 5MS5E 06:12
PROVIDERS: ADMIT Internal Medicine; ATTEND Internal Medicine
DX: J18.9 Pneumonia, unspecified organism (principal); J45.41 Moderate persistent asthma with (acute) exacerbation; E83.52 Hypercalcemia; I11.9 Hypertensive heart disease without heart failure; J44.0 Chronic obstructive pulmonary disease with (acute) lower respiratory infection; E78.5 Hyperlipidemia, unspecified; H35.30 Unspecified macular degeneration; M19.041 Primary osteoarthritis, right hand; M19.042 Primary osteoarthritis, left hand; N40.0 Benign prostatic hyperplasia without lower urinary tract symptoms; M54.5 Low back pain; E66.9 Obesity, unspecified; Z96.652 Presence of left artificial knee joint; Z79.899 Other long term (current) drug therapy; Z80.43 Family history of malignant neoplasm of testis; Z82.3 Family history of stroke; Z82.5 Family history of asthma and other chronic lower respiratory diseases; Z82.62 Family history of osteoporosis; Z87.11 Personal history of peptic ulcer disease; Z87.891 Personal history of nicotine dependence; Z79.891 Long term (current) use of opiate analgesic; Z79.51 Long term (current) use of inhaled steroids; Z79.52 Long term (current) use of systemic steroids; Z68.33 Body mass index [BMI] 33.0-33.9, adult
CPT/HCPCS: 36415; 71045; 71046; 80053; 81003; 83036; 83605; 84484; 85025; 85610; 85730; 87040; 87070; 87086; 87205; 87502; 93005; 94640; 94760; 96365; 96366; 99285

== ENCOUNTER 2017-05-21 01:26 | Inpatient (IN) | payer MEDICARE, BC ==
[2017-05-21] MEDS ORDERED: ONDANSETRON 4 MG/2 ML VIAL IVP STA (01:45)
--- NOTE | 2017-05-21 01:49 | ED ---
General Adult HPI - General Chief complaint: Abdominal Pain Stated complaint: Upper Abdominal Pain Time Seen by Provider: 05/21/17 01:30 Source: patient, RN notes reviewed Mode of arrival: ambulatory Limitations: no limitations - History of Present Illness Initial comments: This is a 76-year-old male who presents emergency Department with a past medical history of pancreatitis and a recent diagnosis of pneumonia. Patient states she's on an antibiotic currently for the pneumonia. Patient states he had lower abdominal pain which now resides in the upper abdomen. Patient states it feels like the pancreatitis she's had in the past. Patient states she 's nauseated but hasn't vomited. Patient denies any fever chills per patient denies any chest pain difficulty breathing or shortness of breath. Patient denies any radiation of the pain to the back. Patient denies any headache patient denies numbness or weakness patient denies any lightheadedness or dizziness. Patient denies any diarrhea - Related Data Home Medications Medication Instructions Recorded Confirmed Albuterol Sulfate [Proair Hfa] 2 puff INHALATION RT-QID PRN 07/09/13 05/16/17 Enalapril [Vasotec] 5 mg PO DAILY 07/09/13 05/16/17 Fluticasone/Salmeterol [Advair 1 puff INHALATION RT-BID 07/09/13 05/16/17 500-50 Diskus] Furosemide 40 mg PO DAILY 09/08/15 05/16/17 Multivitamins, Thera [Multivitamin 1 tab PO DAILY 09/08/15 05/16/17 (formulary)] Vit C/E/Zn/Coppr/Lutein/Zeaxan 1 cap PO BID 09/08/15 05/16/17 [Preservision Areds 2 Softgel] Montelukast [Singulair] 10 mg PO DAILY 11/08/15 05/16/17 oxyCODONE-APAP 10-325MG [Percocet 1 tab PO Q6HR PRN 11/08/15 05/16/17 10-325 mg] Atorvastatin [Lipitor] 20 mg PO DAILY 01/24/17 05/16/17 Ipratropium-Albuterol Nebulize 3 ml INHALATION RT-QID 01/24/17 05/16/17 [Duoneb 0.5 mg-3 mg/3 ml Soln] Glucosam/Sergio-Msm1/C/Chandu/Bosw 1 tab PO BID 05/16/17 05/16/17 [Glucosamine-Chondroitin Tablet] Latanoprost [Xalatan 0.005%] 1 drop RIGHT EYE DAILY 05/16/17 05/16/17 [place]-3 Fatty Acids/Fish Oil [Fish 1 cap PO DAILY 05/16/17 05/16/17 Oil 1,000 mg Softgel] Theophylline Anhydrous 400 mg PO BID 05/16/17 05/16/17 [Theophylline] Previous Rx's Medication Instructions Recorded Cefuroxime Axetil [Ceftin] 500 mg PO BID 8 Days #16 tab 05/18/17 predniSONE 10 mg PO DAILY 8 Days #28 tab 05/18/17 Gabapentin [Neurontin] 400 mg PO BID cap 05/19/17 Spironolactone [Aldactone] 25 mg PO DAILY tab 05/19/17 Allergies Allergy/AdvReac Type Severity Reaction Status Date / Time aspirin Allergy does not Verified 05/21/17 01:31 take r/t hx of nasal polyps NSAIDS (Non-Steroidal Allergy states was Verified 05/21/17 01:31 Anti-Inflamma told never to take Review of Systems ROS Statement: Those systems with pertinent positive or pertinent negative responses have been documented in the HPI. ROS Other: All systems not noted in ROS Statement are negative. Past Medical History Past Medical History: Asthma, COPD, Eye Disorder, Hyperlipidemia, Hypertension, Osteoarthritis (OA), Pneumonia, Prostate Disorder Additional Past Medical History / Comment(s): Macular degeneration of the R eye , osteoarthritis hands/feet and neck, intermittent lower back pain, chronic sinus polyps, 2016 where he was treated for a right olecranon bursitis/ cellulitis with sepsis, peptic ulcer disease pt denies previous history of GI bleed, pneumonias, PSEUDOMONIS PNEUMONIA AND SEPSIS POST BACK SX 2016, 02/2017 bronchoscopy with BAL showed persistent severe asthma, pseudomonas pneumonia/ broncheictasis, injured R ankle one month ago/still has some edema and using a cane. History of Any Multi-Drug Resistant Organisms: None Reported Past Surgical History: Back Surgery, Joint Replacement, Orthopedic Surgery, Prostate Surgery, Tonsillectomy Additional Past Surgical History / Comment(s): 02/2017 bronchoscopy with BAL, Low BACK SX, Multiple surgeries for nasal polyps, LEFT KNEE ATRHROSCOPY, left total knee arthroplasty, colonoscopy, benign growth removed from his L thumb, correction of a deviated nasal septum, eye for R eye injections for macular degeneration, TURP. Past Anesthesia/Blood Transfusion Reactions: No Reported Reaction Past Psychological History: No Psychological Hx Reported Smoking Status: Former smoker - Past Family History Father Family Medical History: COPD Additional Family Medical History / Comment(s): emphysema Mother Additional Family Medical History / Comment(s): osteoporosis, lived to be 94 Son(s) Family Medical History: Cancer Additional Family Medical History / Comment(s): testicular cancer, mentally challenged General Exam - General Exam Comments Initial Comments: GENERAL: Patient is well-developed and well-nourished. Patient is nontoxic and well- hydrated and is in mild distress ENT: Neck is soft and supple. No significant lymphadenopathy is noted. Oropharynx is clear. Moist mucous membranes. Neck has full range of motion without eliciting any pain. EYES: The sclera were anicteric and conjunctiva were pink and moist. Extraocular movements were intact and pupils were equal round and reactive to light. Eyelids were unremarkable. PULMONARY: Unlabored respirations. Good breath sounds bilaterally. No audible rales rhonchi or wheezing was noted. CARDIOVASCULAR: There is a regular rate and rhythm without any murmurs gallops or rubs. ABDOMEN: Mild epigastric tenderness SKIN: Skin is clear with no lesions or rashes and otherwise unremarkable. NEUROLOGIC: Patient is alert and oriented x3. Cranial nerves II through XII are grossly intact. Motor and sensory are also intact. Normal speech, volume and content. Symmetrical smile. MUSCULOSKELETAL: Normal extremities with adequate strength and full range of motion. 1+ edema right ankle patient states this is from twisting his ankle when he was on vacation LYMPHATICS: No significant lymphadenopathy is noted PSYCHIATRIC: Normal psychiatric evaluation. Normal interpersonal interactions appears functionally intact in deals appropriately with others. No signs of depression. No signs of anxiety. Limitations: no limitations Course Vital Signs 05/21/17 05/21/17 01:28 02:44 Temperature 97.2 F L Pulse Rate 80 71 Respiratory 20 20 Rate Blood Pressure 120/74 134/81 O2 Sat by Pulse 96 95 Oximetry Medical Decision Making - Lab Data Result diagrams: 05/21/17 01:45 05/21/17 01:45 Lab Results 05/21/17 05/21/17 05/21/17 Range/Units 01:37 01:45 01:45 WBC 13.1 H (3.8-10.6) k/uL RBC 3.83 L (4.30-5.90) m/uL Hgb 11.8 L (13.0-17.5) gm/dL Hct 34.5 L (39.0-53.0) % MCV 90.2 (80.0-100.0) fL MCH 31.0 (25.0-35.0) pg MCHC 34.3 (31.0-37.0) g/dL RDW 14.9 (11.5-15.5) % Plt Count 316 (150-450) k/uL Neutrophils % 75 % Lymphocytes % 10 % Monocytes % 11 % Eosinophils % 1 % Basophils % 1 % Neutrophils # 9.8 H (1.3-7.7) k/uL Lymphocytes # 1.3 (1.0-4.8) k/uL Monocytes # 1.5 H (0-1.0) k/uL Eosinophils # 0.1 (0-0.7) k/uL Basophils # 0.1 (0-0.2) k/uL Sodium 137 (137-145) mmol/L Potassium 4.4 (3.5-5.1) mmol/L Chloride 100 (98-107) mmol/L Carbon Dioxide 23 (22-30) mmol/L Anion Gap 14 mmol/L BUN 51 H (9-20) mg/dL Creatinine 1.00 (0.66-1.25) mg/dL Est GFR (CKD-EPI)AfAm 84 (>60 ml/min/1.73 sqM) Est GFR (CKD-EPI)NonAf 72 (>60 ml/min/1.73 sqM) Glucose 93 (74-99) mg/dL Calcium 9.1 (8.4-10.2) mg/dL Total Bilirubin 0.3 (0.2-1.3) mg/dL AST 32 (17-59) U/L ALT 70 (21-72) U/L Alkaline Phosphatase 43 (38-126) U/L Total Protein 6.9 (6.3-8.2) g/dL Albumin 4.1 (3.5-5.0) g/dL Amylase 529 H* (30-110) U/L Lipase 4191 H (23-300) U/L Urine Color Light Yellow Urine Appearance Clear (Clear) Urine pH 6.0 (5.0-8.0) Ur Specific [place] 1.012 (1.001-1.035) Urine Protein Negative (Negative) Urine Glucose (UA) Negative (Negative) Urine Ketones Negative (Negative) Urine Blood Negative (Negative) Urine Nitrite Negative (Negative) Urine Bilirubin Negative (Negative) Urine Urobilinogen <2.0 (<2.0) mg/dL Ur Leukocyte Esterase Negative (Negative) Disposition Clinical Impression: Pancreatitis Disposition: ADMITTED IP TO THIS HOSP Referrals: Al Ramirez MD [Primary Care Provider] - 1-2 days Time of Disposition: 03:14
[2017-05-21] MEDS: MORPHINE SULFATE 4MG/4ML SYRG IVP STA ×2 (01:53→02:42)
[2017-05-21 01:58] LABS: Appearance,Urine Clear (Clear); Bilirubin,Urine Negative (Negative); Blood,Urine Negative (Negative); Color,Urine Light Yellow; Glucose,Urine (UA) Negative (Negative); Ketones,Urine Negative (Negative); Leukocyte Esterase,Urine Negative (Negative); Nitrite,Urine Negative (Negative); Protein,Urine Negative (Negative); Specific Gravity,Urine 1.012 (1.001-1.035); Urobilinogen,Urine <2.0 mg/dL (<2.0)
[2017-05-21 02:02] LABS: Basophils # (A) 0.1 k/uL (0-0.2); Basophils % (A) 1 %; Eosinophils # (A) 0.1 k/uL (0-0.7); Eosinophils % (A) 1 %; HCT 34.5 % (39.0-53.0); HGB 11.8 gm/dL (13.0-17.5); Lymphocytes # (A) 1.3 k/uL (1.0-4.8); Lymphocytes % (A) 10 %; MCHC 34.3 g/dL (31.0-37.0); MCV 90.2 fL (80.0-100.0); Mean Platelet Volume 6.7; Monocytes # (A) 1.5 k/uL (0-1.0); Monocytes % (A) 11 %; Neutrophils # (A) 9.8 k/uL (1.3-7.7); Neutrophils % (A) 75 %; Platelet Count 316 k/uL (150-450); RBC 3.83 m/uL (4.30-5.90); RDW 14.9 % (11.5-15.5); WBC 13.1 k/uL (3.8-10.6)
[2017-05-21 02:05] LABS: Albumin 4.1 g/dL (3.5-5.0); Calcium 9.1 mg/dL (8.4-10.2); Potassium 4.4 mmol/L (3.5-5.1); Total Bilirubin 0.3 mg/dL (0.2-1.3); Total Protein 6.9 g/dL (6.3-8.2)
[2017-05-21] MEDS ORDERED: MORPHINE SULFATE 4MG/4ML SYRG ONE (02:39)
[2017-05-21] MEDS ORDERED: MORPHINE SULFATE 4MG/4ML SYRG IVP STA (03:15)
[2017-05-21] MEDS ORDERED: SODIUM CHLORIDE 0.9% 1,000 ML IV ONE (03:20)
[2017-05-21 03:55] VITALS: BMI 33.3
[2017-05-21] MEDS: MORPHINE SULFATE 4MG/4ML SYRG IVP PRN ×3 (05:41→15:08)
[2017-05-21] MEDS ORDERED: oxyCODONE-APAP 10-325MG 1 EACH TAB PO PRN (09:32)
[2017-05-21] MEDS ORDERED: ONDANSETRON 4 MG/2 ML VIAL IVP PRN (09:57)
[2017-05-21] MEDS ORDERED: MORPHINE SULFATE 4MG/4ML SYRG IVP PRN (10:00)
[2017-05-21] MEDS ORDERED: PIPERACILLIN-TAZOBACTAM 3.375 GM in DEXTROSE/WATER 1 50ML.BAG IVPB SCH (10:00)
[2017-05-21] MEDS: PANTOPRAZOLE 40 MG/10 ML VIAL IVP SCH (10:51)
[2017-05-21] MEDS: LATANOPROST 0.005% OPHTH DROPS 2.5 ML BTL RIGHT EYE SCH (10:52)
[2017-05-21] MEDS: HEPARIN SODIUM,PORCINE 5,000 UNIT/ML 1 ML VIAL SQ SCH ×2 (10:52→21:38)
[2017-05-21] MEDS ORDERED: RX INFO: IV CONTRAST WAS GIVEN 1 EACH MISC MISCELLANE PRN (11:31)
[2017-05-21] MEDS: IPRATROPIUM-ALBUTEROL 3 ML NEB INHALATION SCH ×4 (11:35→23:51)
--- NOTE | 2017-05-21 12:26 | P.HPIM ---
History of Present Illness H&P Date: 05/21/17 (Attending physician Dr. Al Ramirez) Chief Complaint: Severe abdominal pain with distention, elevated pancreatic enzyme. This is a history and physical dictated by Dr. Willis covering for Dr. Al Ramirez this weekend, Dr. Ramirez will be following the patient on Tuesday. Chief complaint: 76 years old white male presented to the emergency room with the acute abdominal pain with distention. He denied pain to the shoulder or the back, no headache and no blurred vision no generalized weakness. Distended abdomen and lost bowel movement was on this week and was normal nonbloody and no diarrhea associated with. Patient was recently discharged from the hospital with the underlying pneumonia apparently treated with Ceftin 500 previous prescription mg twice a day medication was not clear to me, and he did not have the bottle antibiotic with him. The patient was started from the lower abdomen and grownup to have all his abdominal which is protuberant and tympanitic. History of present illness: Patient was doing well in the hospital and he discharged home on and subsequently he started to develop on Tuesday abdominal pain with distention was 10 over 10 and came to the emergency room and they treated him with morphine patient has history of asthma with nasal polyp and he is not to take aspirin, and nonsteroidal anti-inflammatory because exacerbate his asthma and nasal polyps by his physician and had in [facility], patient currently his asthma on chronic prednisone therapy and treated by Dr. Young pulmonary and critical physician. Current pain is localized with abdominal distention no refill to other parts of his body he is ambulatory but the pain even with 2 mg of morphine is not helping and we have to increase his morphine to 4 mg every 4 hours. Past medical history: Patient stated that he had similar episode 4 years ago etiology was unknown, he was seen also by Dr. Lucero and at that time he had no gallbladder disease, patient is not drinking any alcoholic beverage. Patient believe that antibiotic could be doing that to him, however we don't have diarrhea and we don't have impression of C. difficile so far. 9 patient has past history of asthma COPD I disorder hyperlipidemia hypertension osteoarthritis and prostate disorder sinus polyps he had also right great on bursitis and cellulitis with sepsis in 2016, he had a peptic ulcer disease in the past but the denied GI bleeding he had pneumonia with Pseudomonas pneumonia sepsis in 2016 and February 2017 and he had a bronchoscopy with BAL. With the underlying diagnoses persistent severe asthma Pseudomonas pneumonia and bronchiectasis. Patient had injured his right ankle 1 month ago with the still swelling of the tissue the right ankle and knee using a cane for that. Surgical history he had orthopedic surgery prostate surgery tonsillectomy. Bronchoscopy with BAL and February 24 multiple surgery for nasal polyps, left knee arthroscopy total, total knee arthroplasty on the left knee, deviated septum correction, TURP for benign prostatic hypertrophy, macular degeneration. Smoking history smoked for 15 years pack per day, however he quit smoking for 41 years. Family history: Father COPD and emphysema. Mother osteoporosis she lived until age of 94. Son 2 male son, history of cancer and testicular cancer and mentally challenged. Home medication: Hypertension: Treated with enalapril 5 mg by mouth daily, furosemide 40 mg by mouth daily. Asthma and COPD: Treated with albuterol sulfate pro-air HFA 2 puffs 4 times a day when necessary, fluticasone/salmeterol Advair discuss 500/50 one puff twice a day inhalation. Theophylline anhydrous 400 mg twice a day. Nebulizers albuterol and ipratropium 3 mL inhalation therapy 4 times a day, Singulair 10 mg daily. Ceftin 500 mg twice a day prescribed on 05/18/2017.. These are 110 mg daily for 8 days given 28 tablet on 05/18/2017. Hyperlipidemia: Atorvastatin 20 mg daily. Degenerative arthritis: Pain medication oxycodoneAPAP 10/325 mgPercocet one tablet every 6 hours. Glucosamine chondroitin 1 tablet twice a day. Macular degeneration: Treated with preserved vision a red to soft gel 1 capsule twice a day. Miscellaneous: 3 fatty acid/fish oil 1000 mg soft gel once a day. Multivitamin 1 tablet a day. Patient on gabapentin 400 mg twice a day capsule. Spironolactone 25 mg daily. Review of system: Neuropsychiatry: No dizziness no syncopal episode no headache no blurred vision and no neurological symptoms. Cardiovascular: No history of irregularities of the heart and no angina. Respiratory: He has underlying chronic history of lung disease was present resistant asthma and he has been steroid dependent, as well as he has been taken multiple medication has been scoped in the past by Dr. Young as well. GI: He has been feeling fine until recently after he had the bout of pneumonia and he was treated with antibiotic and then he felt the abdominal pain and distention no diarrhea so far no evidence of C. difficile and he felt his abdomen tympanitic and distended and protuberant. no symptoms Musculoskeletal: Ambulatory and the has no weakness. Neurologically no lateralizing sign no history of stroke. Hematologically/lymph node no history of that. Reviewing of the rest of the 14 points nonhelpful On exam [id number]: Vital sign on admission temperature 97.2 pulse rate 80/m respiratory rate was 20 blood pressure 120/74 and pulse ox was 96% on room air. General condition: Patient is a well-developed well-nourished appearing nontoxic hydrated, with severe abdominal pain with distention. HEENT: History of polyp of the nasal, oropharynx partials, uvula midline, no ulceration. Hearing stable The eyes no icterus, conjunctiva was pink sclera was nonicteric. Neck was supple no JVD no thyromegaly no lymphadenopathy trachea midline. Pulmonary: Bilateral rhonchi's which is his baseline with the underlying increased anteroposterior diameter with hyperinflation of the lung with the underlying COPD. Cardiovascular: PMI in the fifth intercostal space normal S1 and S2 no gallop could not hear murmurs and he is regular sinus rhythm. Abdomen: He had significant increase abdominal girth with abdominal protuberant , tenderness on deep palpation, tympanitic on percussion, bowel sound is low. Skin: Keratosis scattered. Neurologically: Patient is conscious alert oriented 3 no neurological deficit no lateralizing sign. Musculoskeletal was ambulatory and no weakness. Lymphatics no palpable lymph node. Hematologically: Leukocytosis. Psychiatry: Negative Assessment and plan: #1 elevated laboratory amylase, lipase with abdominal pain and distention, suggestive of acute pancreatitis with a history of having similar episode 4 years ago. However the clear etiology is on clear at that time #2 recent history of pneumonia and discharged from the hospital with the antibiotic. #3 history of aspirin ALLERGY and nonsteroidal with the nasal polyp. #4 history of present resistant asthma and COPD. #5 severe abdominal pain with the possibility of angina of the bowel and ischemia with ileus versus obstruction. #6 hyperlipidemia #7 musculoskeletal and degenerative osteoarthritis. Plan #1 obtain computed tomography scan of the abdomen and pelvis with contrast with and without. #[address] Elizabeth MAHONEY who also saw him with me agreed on the plan. #3 currently he is on clear liquid diet and started on IV antibiotic, Protonix IV, heparin subcu every 12 hours 5000 for DVT prophylaxis. Obtain laboratory tomorrow including CBC with differential BMP and liver function test. Continue hydration with IV fluid 0.9 normal saline 100 mL/h. Controlled the pain with increasing the morphine to 4 mg every 4 hour when necessary. Uncontrolled clarification subsequently after the results of the computed tomography scan will be able to further decision with the discussion with the GI. We'll obtain also chest x-ray to see of the improvement of the pneumonia as patient has history of pneumonia and was treated with antibiotic. Past Medical History Past Medical History: Asthma, COPD, Eye Disorder, Hyperlipidemia, Hypertension, Osteoarthritis (OA), Pneumonia, Prostate Disorder Additional Past Medical History / Comment(s): Macular degeneration of the R eye , osteoarthritis hands/feet and neck, intermittent lower back pain, chronic sinus polyps, 2016 where he was treated for a right olecranon bursitis/ cellulitis with sepsis, peptic ulcer disease pt denies previous history of GI bleed, pneumonias, PSEUDOMONIS PNEUMONIA AND SEPSIS POST BACK SX 2016, 02/2017 bronchoscopy with BAL showed persistent severe asthma, pseudomonas pneumonia/ broncheictasis, injured R ankle one month ago/still has some edema and using a cane. History of Any Multi-Drug Resistant Organisms: None Reported Past Surgical History: Back Surgery, Joint Replacement, Orthopedic Surgery, Prostate Surgery, Tonsillectomy Additional Past Surgical History / Comment(s): 02/2017 bronchoscopy with BAL, Low BACK SX, Multiple surgeries for nasal polyps, LEFT KNEE ATRHROSCOPY, left total knee arthroplasty, colonoscopy, benign growth removed from his L thumb, correction of a deviated nasal septum, eye for R eye injections for macular degeneration, TURP. Past Anesthesia/Blood Transfusion Reactions: No Reported Reaction Past Psychological History: No Psychological Hx Reported Additional Psychological History / Comment(s): Pt resides with his spouse. He injured his R ankle 1 month ago and has been using a cane since. He drives. He has a nebulizer. Smoking Status: Former smoker Past Alcohol Use History: Occasional Additional Past Alcohol Use History / Comment(s): SMOKED 2 PPD FROM TEENS UNTIL 1977 Past Drug Use History: None Reported - Past Family History Father Family Medical History: COPD Additional Family Medical History / Comment(s): emphysema Mother Additional Family Medical History / Comment(s): osteoporosis, lived to be 94 Son(s) Family Medical History: Cancer Additional Family Medical History / Comment(s): testicular cancer, mentally challenged Medications and Allergies Home Medications Medication Instructions Recorded Confirmed Type Albuterol Sulfate [Proair Hfa] 2 puff INHALATION RT-QID PRN 07/09/13 05/21/17 History Enalapril [Vasotec] 5 mg PO DAILY 07/09/13 05/21/17 History Fluticasone/Salmeterol [Advair 1 puff INHALATION RT-BID 07/09/13 05/21/17 History 500-50 Diskus] Furosemide 40 mg PO DAILY 09/08/15 05/21/17 History Multivitamins, Thera [Multivitamin 1 tab PO DAILY 09/08/15 05/21/17 History (formulary)] Vit C/E/Zn/Coppr/Lutein/Zeaxan 1 cap PO BID 09/08/15 05/21/17 History [Preservision Areds 2 Softgel] Montelukast [Singulair] 10 mg PO DAILY 11/08/15 05/21/17 History oxyCODONE-APAP 10-325MG [Percocet 1 tab PO Q6HR PRN 11/08/15 05/21/17 History 10-325 mg] Atorvastatin [Lipitor] 20 mg PO DAILY 01/24/17 05/21/17 History Ipratropium-Albuterol Nebulize 3 ml INHALATION RT-QID 01/24/17 05/21/17 History [Duoneb 0.5 mg-3 mg/3 ml Soln] Latanoprost [Xalatan 0.005%] 1 drop RIGHT EYE DAILY 05/16/17 05/21/17 History [place]-3 Fatty Acids/Fish Oil [Fish 1 cap PO DAILY 05/16/17 05/21/17 History Oil 1,000 mg Softgel] Theophylline Anhydrous 400 mg PO BID 05/16/17 05/21/17 History [Theophylline] Cefuroxime Axetil [Ceftin] 500 mg PO BID 8 Days #16 tab 05/18/17 05/21/17 Rx Gabapentin [Neurontin] 400 mg PO BID cap 05/19/17 05/21/17 Rx Spironolactone [Aldactone] 25 mg PO DAILY tab 05/19/17 05/21/17 Rx Glucosam/Sergio-Msm1/C/Chandu/Bosw 1 tab PO BID 05/21/17 05/21/17 History [Glucosamine-Chondroitin Tablet] predniSONE See Taper PO DAILY 05/21/17 05/21/17 History Allergies Allergy/AdvReac Type Severity Reaction Status Date / Time aspirin Allergy does not Verified 05/21/17 10:51 take r/t hx of nasal polyps NSAIDS (Non-Steroidal Allergy states was Verified 05/21/17 10:51 Anti-Inflamma told never to take Physical Exam Vitals: Vital Signs Temp Pulse Pulse Resp BP BP Pulse Ox 05/21/17 11:35 86 05/21/17 08:00 87 18 05/21/17 07:00 97.5 F L 87 18 106/69 92 L 05/21/17 04:28 98.7 F 100 16 119/75 94 L 05/21/17 03:47 67 17 133/68 97 05/21/17 02:44 71 20 134/81 95 05/21/17 01:28 97.2 F L 80 20 120/74 96 Intake and Output 05/20/17 05/21/17 05/21/17 22:59 06:59 14:59 Intake Total 100 Balance 100 Intake: IV 100 Sodium Chloride 0.9% 1, 100 000 ml @ 100 mls/hr IV . Q10H ONE Rx#:[id number] Other: Voiding Method Toilet Toilet Urinal Urinal Weight 90 kg Results CBC & Chem 7: 05/21/17 01:45 05/21/17 01:45 Labs: Abnormal Lab Results - Last 24 Hours (Table) 05/21/17 05/21/17 Range/Units 01:45 01:45 WBC 13.1 H (3.8-10.6) k/uL RBC 3.83 L (4.30-5.90) m/uL Hgb 11.8 L (13.0-17.5) gm/dL Hct 34.5 L (39.0-53.0) % Neutrophils # 9.8 H (1.3-7.7) k/uL Monocytes # 1.5 H (0-1.0) k/uL BUN 51 H (9-20) mg/dL Amylase 529 H* (30-110) U/L Lipase 4191 H (23-300) U/L Thrombosis Risk Factor Assmnt - Choose All That Apply Each Factor Represents 1 point: Abnormal pulmonary function (COPD), Serious lung disease incl. pneumonia (< 1month) Each Risk Factor Represents 3 Points: Age 75 years or older Thrombosis Risk Factor Assessment Total Risk Factor Score: 5 Thrombosis Risk Factor Assessment Level: High Risk
[2017-05-21] MEDS: IOPAMIDOL-300 CONTRAST 30 ML VIAL (ORAL USE) PO PRN ×2 (12:50→13:54)
--- NOTE | 2017-05-21 13:38 | P.CNPUL ---
History of Present Illness Consult date: 05/21/17 Reason for consult: other Chief complaint: Abdominal pain, pancreatitis History of present illness: Consult dated 05/21/2017 This is a 76-year-old male who presented to the emergency department with complaints of abdominal pain. The patient has a previous history of pancreatitis some 4 years ago thought related to antibiotics. He was just discharged from the hospital with an episode of asthma exacerbation where he was on antibiotics and steroids. Both antibiotics and steroids can cause acute pancreatitis. He has been though on prednisone for sometime without a problem. I suspect it is more likely the antibiotics that causes problems and steroids. Patient states that he has been nauseated but hasn't vomited. Denies any fever or chills. Head epigastric discomfort. Feeling bit better today. His breathing is stable. We saw him on his most recent and last admission. He was discharged home on some oral antibiotics and steroids with a taper. He typically sees my partner in the office and used to see a artist scientific on it [facility]. His admission amylase was 529 and his admission lipase was 4191. Review of Systems A 12 point review of system is positive for epigastric discomfort and nausea without emesis. His breathing seems to be relatively stable. No fever or chills. No other complaints for that matter. Past Medical History Past Medical History: Asthma, COPD, Eye Disorder, Hyperlipidemia, Hypertension, Osteoarthritis (OA), Pneumonia, Prostate Disorder Additional Past Medical History / Comment(s): Macular degeneration of the R eye , osteoarthritis hands/feet and neck, intermittent lower back pain, chronic sinus polyps, 2016 where he was treated for a right olecranon bursitis/ cellulitis with sepsis, peptic ulcer disease pt denies previous history of GI bleed, pneumonias, PSEUDOMONIS PNEUMONIA AND SEPSIS POST BACK SX 2016, 02/2017 bronchoscopy with BAL showed persistent severe asthma, pseudomonas pneumonia/ broncheictasis, injured R ankle one month ago/still has some edema and using a cane. History of Any Multi-Drug Resistant Organisms: None Reported Past Surgical History: Back Surgery, Joint Replacement, Orthopedic Surgery, Prostate Surgery, Tonsillectomy Additional Past Surgical History / Comment(s): 02/2017 bronchoscopy with BAL, Low BACK SX, Multiple surgeries for nasal polyps, LEFT KNEE ATRHROSCOPY, left total knee arthroplasty, colonoscopy, benign growth removed from his L thumb, correction of a deviated nasal septum, eye for R eye injections for macular degeneration, TURP. Past Anesthesia/Blood Transfusion Reactions: No Reported Reaction Past Psychological History: No Psychological Hx Reported Additional Psychological History / Comment(s): Pt resides with his spouse. He injured his R ankle 1 month ago and has been using a cane since. He drives. He has a nebulizer. Smoking Status: Former smoker Past Alcohol Use History: Occasional Additional Past Alcohol Use History / Comment(s): SMOKED 2 PPD FROM TEENS UNTIL 1977 Past Drug Use History: None Reported - Past Family History Father Family Medical History: COPD Additional Family Medical History / Comment(s): emphysema Mother Additional Family Medical History / Comment(s): osteoporosis, lived to be 94 Son(s) Family Medical History: Cancer Additional Family Medical History / Comment(s): testicular cancer, mentally challenged Medications and Allergies Home Medications Medication Instructions Recorded Confirmed Type Albuterol Sulfate [Proair Hfa] 2 puff INHALATION RT-QID PRN 07/09/13 05/21/17 History Enalapril [Vasotec] 5 mg PO DAILY 07/09/13 05/21/17 History Fluticasone/Salmeterol [Advair 1 puff INHALATION RT-BID 07/09/13 05/21/17 History 500-50 Diskus] Furosemide 40 mg PO DAILY 09/08/15 05/21/17 History Multivitamins, Thera [Multivitamin 1 tab PO DAILY 09/08/15 05/21/17 History (formulary)] Vit C/E/Zn/Coppr/Lutein/Zeaxan 1 cap PO BID 09/08/15 05/21/17 History [Preservision Areds 2 Softgel] Montelukast [Singulair] 10 mg PO DAILY 11/08/15 05/21/17 History oxyCODONE-APAP 10-325MG [Percocet 1 tab PO Q6HR PRN 11/08/15 05/21/17 History 10-325 mg] Atorvastatin [Lipitor] 20 mg PO DAILY 01/24/17 05/21/17 History Ipratropium-Albuterol Nebulize 3 ml INHALATION RT-QID 01/24/17 05/21/17 History [Duoneb 0.5 mg-3 mg/3 ml Soln] Latanoprost [Xalatan 0.005%] 1 drop RIGHT EYE DAILY 05/16/17 05/21/17 History [place]-3 Fatty Acids/Fish Oil [Fish 1 cap PO DAILY 05/16/17 05/21/17 History Oil 1,000 mg Softgel] Theophylline Anhydrous 400 mg PO BID 05/16/17 05/21/17 History [Theophylline] Cefuroxime Axetil [Ceftin] 500 mg PO BID 8 Days #16 tab 05/18/17 05/21/17 Rx Gabapentin [Neurontin] 400 mg PO BID cap 05/19/17 05/21/17 Rx Spironolactone [Aldactone] 25 mg PO DAILY tab 05/19/17 05/21/17 Rx Glucosam/Sergio-Msm1/C/Chandu/Bosw 1 tab PO BID 05/21/17 05/21/17 History [Glucosamine-Chondroitin Tablet] predniSONE See Taper PO DAILY 05/21/17 05/21/17 History Allergies Allergy/AdvReac Type Severity Reaction Status Date / Time aspirin Allergy does not Verified 05/21/17 10:51 take r/t hx of nasal polyps NSAIDS (Non-Steroidal Allergy states was Verified 05/21/17 10:51 Anti-Inflamma told never to take Physical Exam Osteopathic Statement: *. No significant issues noted on an osteopathic structural exam other than those noted in the History and Physical/Consult. Vitals: Vital Signs Temp Pulse Pulse Resp BP BP Pulse Ox 05/21/17 11:49 87 05/21/17 11:35 86 05/21/17 08:00 87 18 05/21/17 07:00 97.5 F L 87 18 106/69 92 L 05/21/17 04:28 98.7 F 100 16 119/75 94 L 05/21/17 03:47 67 17 133/68 97 05/21/17 02:44 71 20 134/81 95 05/21/17 01:28 97.2 F L 80 20 120/74 96 Intake and Output 05/20/17 05/21/17 05/21/17 22:59 06:59 14:59 Intake Total 100 2290 Balance 100 2290 Intake: IV 100 600 Sodium Chloride 0.9% 1, 100 600 000 ml @ 100 mls/hr IV . Q10H ONE Rx#:[id number] Intake, IV Titration 50 Amount Piperacillin-Tazobactam 3 50 .375 gm In Dextrose/Water 1 50ml.bag @ 12.5 mls/hr IVPB Q8HR ON [facility] OF [facility] Rx#: [id number] Oral 1640 Other: Voiding Method Toilet Toilet Urinal Urinal # Voids 3 Weight 90 kg No acute distress, oriented 3. HEENT examination is grossly unremarkable. Mucous membranes are moist. No oral lesions. Neck supple. Full range of motion. No adenopathy thyromegaly or neck vein distention. Cardiovascular examination reveals regular rhythm rate. S1-S2 normal. No S3 or S4. No discernible murmur noted. Lungs reveal mostly clear breath sounds. A few scattered rhonchi. No wheezes or crackles. Breath sounds are equal bilaterally. There is certainly much improved.. Abdomen soft bowel sounds are heard. Mild epigastric tenderness. Extremities are intact. No cyanosis clubbing or edema. Skin is without rash or lesion. Neurologic examination is brief but nonfocal. Results - Laboratory Findings CBC and BMP: 05/21/17 01:45 05/21/17 01:45 Abnormal lab findings: Abnormal Labs 05/21/17 05/21/17 01:45 01:45 WBC 13.1 H RBC 3.83 L Hgb 11.8 L Hct 34.5 L Neutrophils # 9.8 H Monocytes # 1.5 H BUN 51 H Amylase 529 H* Lipase 4191 H - Diagnostic Findings Chest x-ray: image reviewed (Labs x-rays a medications are reviewed.) Assessment and Plan Assessment: Assessment Acute pancreatitis, likely related to antibiotics. Certainly steroids could be the other etiology of his acute pancreatitis. Recent asthma exacerbation requiring steroids and antibiotics, much improved History of hyperlipidemia History of hypertension History of osteoarthritis History of macular degeneration Right olecranon bursitis History of Pseudomonas pneumonia History of bronchiectasis Multiple other medical problems and comorbidities Plan: Plan dated 05/21/2017 The patient is being kept nothing by mouth. He is receiving IV hydration. I don't believe he needs antibiotics at this time no tinnitus for the pancreatitis or for his lungs. I would recommend discontinuing those. The patient is on a prednisone taper. Additional recommendations are made. We'll continue to follow. Labs x-rays a medications are all reviewed. Time with Patient: Greater than 30
[2017-05-21] MEDS: methylPREDNISolone SOD SUCCI 40 MG/ML 1 ML VIAL IV SCH ×2 (15:02→23:23)
--- NOTE | 2017-05-21 15:14 | XR ---
EXAMINATION TYPE: XR chest 2V DATE OF EXAM: 05/21/2017 COMPARISON: Prior chest x-ray 05/18/[address] abdomen pelvis 05/21/2017 HISTORY: Pneumonia TECHNIQUE: Frontal and lateral views of the chest are obtained. FINDINGS: Bilateral strand-like densities are present at the lung bases. No pneumothorax or pleural effusion. Prominent lung volumes are compatible with underlying COPD. Cardiac mediastinal silhouette, pulmonary vascularity and yehuda are stable. Abnormal increased density in the retrocardiac region per sists. IMPRESSION: Left lower lobe lung mass favored over pneumonia is better seen on CT of the abdomen pel vis. Follow-up recommended.
--- NOTE | 2017-05-21 15:44 | CT ---
EXAMINATION TYPE: CT abdomen pelvis wo/w con DATE OF EXAM: 05/21/2017 COMPARISON: Chest x-ray same date and prior CT 11/01/2015 HISTORY: Abd pain. CT DLP: 2903.4 mGycm Automated exposure control for dose reduction was used. TECHNIQUE: Helical acquisition of images was performed from the lung bases through the pelvis. CONTRAST: Performed with Oral Contrast and with IV Contrast, patient injected with 100ml mL of Isovue 300. FINDINGS: Low density focus at the inferior right hilum is stable. LUNG BASES: There is a spherical density present which has developed in the interval on the left lowe r lobe measuring approximately 3.5 cm with spiculated margins. Interstitial changes are present and n oted incidentally. Lesion shows mixed density. LIVER/GB: Stable PANCREAS: No significant abnormality is seen. SPLEEN: Stable ADRENALS: Adrenal glands are small as on prior KIDNEYS: Right kidney shows a dense mass in the midpole measuring approximately 2.4 cm similar to marian or exam which may represent proteinaceous cyst, similar-appearing lesion is present at the anterior a spect of the left kidney which is also stable measuring approximately 2.5 cm. FREE AIR: No free air is visualized. RETROPERITONEAL ADENOPATHY: None visualized REPRODUCTIVE ORGANS: No significant abnormality is seen URINARY BLADDER: Right inguinal hernia is present, there is some extension of the lateral aspect of the anterior portion of the urinary bladder towards the hernia, urinary bladder wall thickening could be due to lack of distention, correlate to exclude cystitis PELVIC ADENOPATHY: None visualized. OSSEOUS STRUCTURES: Postop changes are noted to the lumbar spine. There are degenerative disc change s, facet arthropathy change BOWEL: Diverticular changes associated with the sigmoid colon and descending colon, no evident bowel obstruction OTHER: IMPRESSION: THERE IS A NEW LEFT LOWER LOBE LUNG MASS. CONSIDER PULMONARY CONSULT. DIVERTICULOSIS. STABLE DENSE RE NAL LESIONS DESCRIBED. RIGHT INGUINAL HERNIA DESCRIBED. POSTOP CHANGES. ADDITIONAL FINDINGS ABO VE.
[2017-05-21] MEDS: SYMBICORT 160-4.5 MCG INHALER INHALATION SCH (19:45)
[2017-05-21] MEDS ORDERED: BUDESONIDE 0.5 MG/2 ML NEBU INHALATION SCH (20:00)
[2017-05-21] MEDS ORDERED: SYMBICORT 160-4.5 MCG INHALER INHALATION SCH (20:00)
[2017-05-21] MEDS: PIPERACILLIN-TAZOBACTAM 3.375 GM in DEXTROSE/WATER 1 50ML.BAG IVPB SCH (21:38)
[2017-05-22] MEDS: PIPERACILLIN-TAZOBACTAM 3.375 GM in DEXTROSE/WATER 1 50ML.BAG IVPB SCH ×2 (02:33→13:47)
[2017-05-22] MEDS: IPRATROPIUM-ALBUTEROL 3 ML NEB INHALATION SCH ×6 (03:44→23:52)
[2017-05-22 07:42] LABS: ALT 51 U/L (21-72); AST 21 U/L (17-59); Albumin 3.4 g/dL (3.5-5.0); Alkaline Phosphatase 44 U/L (38-126); Amylase 159 U/L (30-110); Anion Gap 12 mmol/L; Bilirubin, Delta 0.3 mg/dL (0.0-0.2); Bilirubin,Unconjugated 0.1 mg/dL (0.0-1.1); Blood Urea Nitrogen 28 mg/dL (9-20); Calcium 8.6 mg/dL (8.4-10.2); Carbon Dioxide 22 mmol/L (22-30); Chloride 102 mmol/L (98-107); Glucose 134 mg/dL (74-99); Lipase 408 U/L (23-300); Potassium 5.3 mmol/L (3.5-5.1); Sodium 136 mmol/L (137-145); Total Bilirubin 0.4 mg/dL (0.2-1.3); Total Protein 5.9 g/dL (6.3-8.2)
[2017-05-22 07:51] LABS: Basophils # (A) 0.1 k/uL (0-0.2); Basophils % (A) 1 %; Eosinophils % (A) 0 %; HCT 33.8 % (39.0-53.0); HGB 11.4 gm/dL (13.0-17.5); Lymphocytes # (A) 0.4 k/uL (1.0-4.8); Lymphocytes % (A) 4 %; MCH 31.8 pg (25.0-35.0); MCHC 33.7 g/dL (31.0-37.0); MCV 94.4 fL (80.0-100.0); Mean Platelet Volume 6.4; Monocytes # (A) 0.4 k/uL (0-1.0); Monocytes % (A) 3 %; Neutrophils # (A) 10.6 k/uL (1.3-7.7); Neutrophils % (A) 91 %; Platelet Count 307 k/uL (150-450); RBC 3.58 m/uL (4.30-5.90); RDW 14.9 % (11.5-15.5); WBC 11.6 k/uL (3.8-10.6)
[2017-05-22] MEDS: SYMBICORT 160-4.5 MCG INHALER INHALATION SCH ×2 (08:27→19:25)
[2017-05-22] MEDS: methylPREDNISolone SOD SUCCI 40 MG/ML 1 ML VIAL IV SCH (08:42)
[2017-05-22] MEDS: LATANOPROST 0.005% OPHTH DROPS 2.5 ML BTL RIGHT EYE SCH (08:43)
[2017-05-22] MEDS: PANTOPRAZOLE 40 MG/10 ML VIAL IVP SCH (08:43)
[2017-05-22] MEDS: HEPARIN SODIUM,PORCINE 5,000 UNIT/ML 1 ML VIAL SQ SCH ×2 (08:43→20:35)
[2017-05-22] MEDS: MORPHINE SULFATE 4MG/4ML SYRG IVP PRN (09:04)
--- NOTE | 2017-05-22 11:35 | P.CONS ---
History of Present Illness - Reason for Consult Consult date: 05/21/17 Pancreatitis - History of Present Illness The patient is a 76-year-old male who was admitted through the emergency room where he presented with abdominal pain and was found to have elevation in his amylase and lipase. The patient was discharged earlier in the week following a hospitalization for exacerbation of asthma and has received antibiotics and prednisone. The patient reported that his pain started in the lower abdomen and moved up to acute by the top part of the abdomen with no radiation or any vomiting. He complains of abdominal distention but no diarrhea or bleeding. No fever or chills. He apparently had a similar attack around 40 years ago and he came to the emergency room this time because he believed he is having a similar problem. Review of Systems Constitutional: Denies fever, chills, sweats, weight gain, or loss. HEENT: Negative for migraines, blurred vision or loss, earaches, drainage, tinnitus, oral mucosal lesions, dysphagia, or odynophagia. CARDIAC: Negative for chest pain, arrhythmias, or palpitation. RESPIRATORY: Negative for shortness of breath, hemoptysis, cough, or sputum production. GI: See HPI for pertinent findings. : Negative for hematuria, urgency, frequency, polyuria, or dysuria. GYNc: Denies possibility of . MUSCULOSKELETAL: Negative for muscle aches, swelling, arthritis, and arthralgias. NEUROLOGIC: Negative for stroke or TIA. ENDOCRINE: Negative for thyroid problems. SKIN: Negative for rash or itching. PSYCHIATRIC: Negative history for depression and anxiety Past Medical History Past Medical History: Asthma, COPD, Eye Disorder, Hyperlipidemia, Hypertension, Osteoarthritis (OA), Pneumonia, Prostate Disorder Additional Past Medical History / Comment(s): Macular degeneration of the R eye , osteoarthritis hands/feet and neck, intermittent lower back pain, chronic sinus polyps, 2016 where he was treated for a right olecranon bursitis/ cellulitis with sepsis, peptic ulcer disease pt denies previous history of GI bleed, pneumonias, PSEUDOMONIS PNEUMONIA AND SEPSIS POST BACK SX 2016, 02/2017 bronchoscopy with BAL showed persistent severe asthma, pseudomonas pneumonia/ broncheictasis, injured R ankle one month ago/still has some edema and using a cane. History of Any Multi-Drug Resistant Organisms: None Reported Past Surgical History: Back Surgery, Joint Replacement, Orthopedic Surgery, Prostate Surgery, Tonsillectomy Additional Past Surgical History / Comment(s): 02/2017 bronchoscopy with BAL, Low BACK SX, Multiple surgeries for nasal polyps, LEFT KNEE ATRHROSCOPY, left total knee arthroplasty, colonoscopy, benign growth removed from his L thumb, correction of a deviated nasal septum, eye for R eye injections for macular degeneration, TURP. Past Anesthesia/Blood Transfusion Reactions: No Reported Reaction Past Psychological History: No Psychological Hx Reported Additional Psychological History / Comment(s): Pt resides with his spouse. He injured his R ankle 1 month ago and has been using a cane since. He drives. He has a nebulizer. Smoking Status: Former smoker Past Alcohol Use History: Occasional Additional Past Alcohol Use History / Comment(s): SMOKED 2 PPD FROM TEENS UNTIL 1977 Past Drug Use History: None Reported - Past Family History Father Family Medical History: COPD Additional Family Medical History / Comment(s): emphysema Mother Additional Family Medical History / Comment(s): osteoporosis, lived to be 94 Son(s) Family Medical History: Cancer Additional Family Medical History / Comment(s): testicular cancer, mentally challenged Medications and Allergies Home Medications Medication Instructions Recorded Confirmed Type Albuterol Sulfate [Proair Hfa] 2 puff INHALATION RT-QID PRN 07/09/13 05/21/17 History Enalapril [Vasotec] 5 mg PO DAILY 07/09/13 05/21/17 History Fluticasone/Salmeterol [Advair 1 puff INHALATION RT-BID 07/09/13 05/21/17 History 500-50 Diskus] Furosemide 40 mg PO DAILY 09/08/15 05/21/17 History Multivitamins, Thera [Multivitamin 1 tab PO DAILY 09/08/15 05/21/17 History (formulary)] Vit C/E/Zn/Coppr/Lutein/Zeaxan 1 cap PO BID 09/08/15 05/21/17 History [Preservision Areds 2 Softgel] Montelukast [Singulair] 10 mg PO DAILY 11/08/15 05/21/17 History oxyCODONE-APAP 10-325MG [Percocet 1 tab PO Q6HR PRN 11/08/15 05/21/17 History 10-325 mg] Atorvastatin [Lipitor] 20 mg PO DAILY 01/24/17 05/21/17 History Ipratropium-Albuterol Nebulize 3 ml INHALATION RT-QID 01/24/17 05/21/17 History [Duoneb 0.5 mg-3 mg/3 ml Soln] Latanoprost [Xalatan 0.005%] 1 drop RIGHT EYE DAILY 05/16/17 05/21/17 History [place]-3 Fatty Acids/Fish Oil [Fish 1 cap PO DAILY 05/16/17 05/21/17 History Oil 1,000 mg Softgel] Theophylline Anhydrous 400 mg PO BID 05/16/17 05/21/17 History [Theophylline] Cefuroxime Axetil [Ceftin] 500 mg PO BID 8 Days #16 tab 05/18/17 05/21/17 Rx Gabapentin [Neurontin] 400 mg PO BID cap 05/19/17 05/21/17 Rx Spironolactone [Aldactone] 25 mg PO DAILY tab 05/19/17 05/21/17 Rx Glucosam/Sergio-Msm1/C/Chandu/Bosw 1 tab PO BID 05/21/17 05/21/17 History [Glucosamine-Chondroitin Tablet] predniSONE See Taper PO DAILY 05/21/17 05/21/17 History Allergies Allergy/AdvReac Type Severity Reaction Status Date / Time aspirin Allergy does not Verified 05/21/17 10:51 take r/t hx of nasal polyps NSAIDS (Non-Steroidal Allergy states was Verified 05/21/17 10:51 Anti-Inflamma told never to take Physical Exam Vitals: Vital Signs Temp Pulse Pulse Resp BP BP Pulse Ox 05/21/17 08:00 87 18 05/21/17 07:00 97.5 F L 87 18 106/69 92 L 05/21/17 04:28 98.7 F 100 16 119/75 94 L 05/21/17 03:47 67 17 133/68 97 05/21/17 02:44 71 20 134/81 95 05/21/17 01:28 97.2 F L 80 20 120/74 96 Intake and Output 05/20/17 05/21/17 05/21/17 22:59 06:59 14:59 Intake Total 100 Balance 100 Intake: IV 100 Sodium Chloride 0.9% 1, 100 000 ml @ 100 mls/hr IV . Q10H ONE Rx#:[id number] Other: Voiding Method Toilet Toilet Urinal Urinal Weight 90 kg General appearance: The patient is alert, oriented, in no acute distress. HET: Head is normocephalic and atraumatic. Conjunctivae pink, sclerae not icteric. Pupils are equal and reactive. Oropharynx is clear without lesions. Neck: Supple without lymphadenopathy. Trachea midline. Heart: S1 S2. Regular rate and rhythm. Lungs: No crackles or wheezes are heard. Abdomen: Soft, distended without definite shifting dullness or fluid wave. Minimal tenderness on deep palpation in the epigastric area. No guarding or rebound. Bowel sounds present. No palpable organomegaly or masses. Extremities: Normal skin color and turgor. No cyanosis, rash, ulceration, clubbing, or edema. Radial and pedal pulses are 2/4 bilaterally. Neurological: No focal deficits. Strength and sensation are grossly intact. Results CBC & Chem 7: 05/22/17 07:08 05/22/17 07:08 Labs: Abnormal Lab Results - Last 24 Hours (Table) 05/21/17 05/21/17 Range/Units 01:45 01:45 WBC 13.1 H (3.8-10.6) k/uL RBC 3.83 L (4.30-5.90) m/uL Hgb 11.8 L (13.0-17.5) gm/dL Hct 34.5 L (39.0-53.0) % Neutrophils # 9.8 H (1.3-7.7) k/uL Monocytes # 1.5 H (0-1.0) k/uL BUN 51 H (9-20) mg/dL Amylase 529 H* (30-110) U/L Lipase 4191 H (23-300) U/L Assessment and Plan Assessment: Acute pancreatitis, likely medication related. Other etiology including neoplasia and gallstone disease will be kept in mind. Plan: Agree with your current management. You have ordered a CT of the abdomen and pelvis to further evaluate his pancreatitis and his abdominal distention. Would review and make additional recommendations based on that and his clinical course. I will follow with you with interest.
[2017-05-22] MEDS ORDERED: MORPHINE ORAL SOLN 10 MG/5 ML CUP PO PRN (13:23)
--- NOTE | 2017-05-22 13:55 | P.PN ---
Subjective Progress Note Date: 05/22/17 Principal diagnosis: Acute pancreatitis/asthma Progress note dated 05/22/2017 The patient is a 76-year-old male admitted with a diagnosis of probable antibiotic-induced pancreatitis. The patient is angry because he wants to eat something. I did tell the nurse is to have them call the primary service and allow the patient to eat. Anyway, he did have a CT of the abdomen which was negative for any pancreatic abnormalities. Of note was the fact there was a lesion in the left lower lobe, which apparently is new since 2016. This will have to be evaluated with bronchoscopy and biopsy. The patient has a history of asthma. His asthma is well controlled. He was recently inpatient for an episode of asthma exacerbation. He was discharged and was readmitted the following day with acute pancreatitis thought to be related to either steroids and/or antibiotics. Again the CT of the abdomen was essentially unremarkable save for the lesion seen on the left lower lobe of the lung. Currently, from the abdominal standpoint he is doing well. Denies any abdominal pain or discomfort. No nausea or vomiting. He is not having any respiratory issues at this time as well. Objective - Vital Signs Vital signs: Vital Signs Temp 98.2 F 05/22/17 07:40 Pulse 80 05/22/17 11:57 Resp 16 05/22/17 07:40 BP 124/71 05/22/17 07:40 Pulse Ox 96 05/22/17 07:40 Intake & Output 05/21/17 05/22/17 05/22/17 18:59 06:59 18:59 Intake Total 2290 950 Balance 2290 950 Weight 90 kg Intake: IV 600 Sodium Chloride 0.9% 1, 600 000 ml @ 100 mls/hr IV . Q10H ONE Rx#:[id number] Intake, IV Titration 50 950 Amount Piperacillin-Tazobactam 3 50 .375 gm In Dextrose/Water 1 50ml.bag @ 12.5 mls/hr IVPB Q8H [facility] Rx#: [id number] Piperacillin-Tazobactam 3 50 .375 gm In Dextrose/Water 1 50ml.bag @ 12.5 mls/hr IVPB Q8HR [facility] Rx#: [id number] Sodium Chloride 0.9% 1, 900 000 ml @ 100 mls/hr IV . Q10H ONE Rx#:[id number] Oral 1640 Other: Voiding Method Toilet Toilet Toilet Urinal Urinal Urinal # Voids 3 1 - Exam No acute distress, oriented 3. HEENT examination is grossly unremarkable. Mucous membranes are moist. No oral lesions. Neck supple. Full range of motion. No adenopathy thyromegaly or neck vein distention. Cardiovascular examination reveals regular rhythm rate. S1-S2 normal. No S3 or S4. No discernible murmur noted. Lungs reveal mild rhonchi. No wheezes. No crackles. Breath sounds are equal. Lungs continued to improve. Abdomen soft bowel sounds are heard. No masses or tenderness. Extremities are intact. No cyanosis clubbing or edema. Skin is without rash or lesion. Neurologic examination is brief but nonfocal. - Labs CBC & Chem 7: 05/22/17 07:08 05/22/17 07:08 Labs: Abnormal Lab Results - Last 24 Hours (Table) 05/22/17 05/22/17 Range/Units 07:08 07:08 WBC 11.6 H (3.8-10.6) k/uL RBC 3.58 L (4.30-5.90) m/uL Hgb 11.4 L (13.0-17.5) gm/dL Hct 33.8 L (39.0-53.0) % Neutrophils # 10.6 H (1.3-7.7) k/uL Lymphocytes # 0.4 L (1.0-4.8) k/uL Sodium 136 L (137-145) mmol/L Potassium 5.3 H (3.5-5.1) mmol/L BUN 28 H (9-20) mg/dL Glucose 134 H (74-99) mg/dL Delta Bilirubin 0.3 H (0.0-0.2) mg/dL Total Protein 5.9 L (6.3-8.2) g/dL Albumin 3.4 L (3.5-5.0) g/dL Amylase 159 H (30-110) U/L Lipase 408 H (23-300) U/L Assessment and Plan Assessment: Assessment Acute pancreatitis, likely related to antibiotics. Certainly steroids could be the other etiology of his acute pancreatitis. Recent asthma exacerbation requiring steroids and antibiotics, much improved New left lower lobe lung lesion, which we'll have to be evaluated for possible malignancy. History of hyperlipidemia History of hypertension History of osteoarthritis History of macular degeneration Right olecranon bursitis History of Pseudomonas pneumonia History of bronchiectasis Multiple other medical problems and comorbidities Plan: Plan dated 05/21/2017 The patient is being kept nothing by mouth. He is receiving IV hydration. I don't believe he needs antibiotics at this time no tinnitus for the pancreatitis or for his lungs. I would recommend discontinuing those. The patient is on a prednisone taper. Additional recommendations are made. We'll continue to follow. Labs x-rays a medications are all reviewed. Plan dated 05/22/2017 The patient is doing much better. I think he can be fed. I think be happier if he is fed. The lesion in the left lower lung will have to be evaluated. It could be done as an outpatient. The patient typically sees Dr. Lou in the office. From the asthma standpoint he is doing well. Also, is not having abdominal pain nausea or vomiting. We'll continue to follow. Prognosis is guarded. Time with Patient: Less than 30
--- NOTE | 2017-05-22 14:00 | P.PN ---
Subjective Progress Note Date: 05/22/17 (Attending physician Dr. Al Ramirez) Principal diagnosis: Principal diagnosis: Acute pancreatitis etiology unclear with elevated lipase and a Mytelase and severe abdominal pain with intractable 10 over 10 need to treated with morphine. #2 spherical density present developed in the interval of the left lower lobe 3.5 cm with the spiculization margin. Interstitial lung change also was present and the lesion showed mixed this density by the computed tomography scan order for the abdomen and the chest x-ray. #3 acute exacerbation of asthma with underlying history of COPD, chronic persistent asthma with hypoxemia. Consultation with Dr. Johnson GI. Consultation with Dr. Ravi pulmonary. Dr. Ravi did see the patient today and he recommended to discontinue the antibiotic, as well as start feeding. Patient still had elevated serum on Mytelase and lipase however improved. Also her what his white count has improved. We'll follow the order of Dr. Ravi however we did notify him with the presence of a mass in the left lower lung base and he is aware of it. Patient feeling much better today and abdominal pain was resolved. His on Mytelase was on admission 529 currently 159 lipase 4191 currently 408. WBC was 13.1 currently 11.6. His sodium today 136 and the potassium was 5.3 with the underlying hyper kalemia his BUN 28 and blood sugar 134 with the underlying steroid that started by the pulmonary. New Vital sign indicating that temperature 98.2 orally, pulse rate is 80/m regular sinus. And the respiratory rate 16 nonlabored blood pressure 124/71 with a mean 88. He is oxygen saturation 96% on room air. Patient ambulatory with a quad cane. We'll increase his ambulation. HEENT negative. Neck was supple no JVD no thyromegaly no lymphadenopathy trachea midline. Chest increased anteroposterior diameter with hyperinflation and there is presence of left lower lung decreased air entry and dullness with the underlying chest x-ray mass in the left lower lobe. The heart. Regular sinus rhythm, he had the chest discomfort today before he eat his meal, I did EKG which was normal sinus rhythm with no evidence of acute changes. And he stated that that apparently gas and he had it before. Currently on exam he is comfortable Abdomen distended positive bowel sounds computed tomography scan did not indicate abnormalities however patient has significant protrusion of the abdomen , he had also underlying right inguinal hernia by the computed tomography scan. Extremities he had a right ankle soft tissue edema with the history of sprain. Left ankle is normal and no edema and positive pulses. Neurologically: Patient moving 4 extremities no lateralizing sign no dizziness or blurred vision no syncopal episode. Assessment: Acute pancreatitis laboratory still not completely resolved. #2 hyperkalemia etiology still unclear we will review her medication again and will hold the lisinopril and the potassium supplementation. #3 ambulate as tolerated #4 in regard of the left lower lobe mass has been notified to the pulmonary Dr. Ravi. Plan: We'll continue the current treatment, #[address] Al Ramirez tomorrow #3 obtaining laboratory tomorrow. #4 depend on the laboratory and the patient condition the final decision for discharge will be by Dr. Al Ramirez. Objective - Vital Signs Vital signs: Vital Signs Temp 98.2 F 05/22/17 07:40 Pulse 80 05/22/17 11:57 Resp 16 05/22/17 07:40 BP 124/71 05/22/17 07:40 Pulse Ox 96 05/22/17 07:40 Intake & Output 05/21/17 05/22/17 05/22/17 18:59 06:59 18:59 Intake Total 2290 950 Balance 2290 950 Weight 90 kg Intake: IV 600 Sodium Chloride 0.9% 1, 600 000 ml @ 100 mls/hr IV . Q10H [facility] Rx#:[id number] Intake, IV Titration 50 950 Amount Piperacillin-Tazobactam 3 50 .375 gm In Dextrose/Water 1 50ml.bag @ 12.5 mls/hr IVPB Q8H [facility] Rx#: [id number] Piperacillin-Tazobactam 3 50 .375 gm In Dextrose/Water 1 50ml.bag @ 12.5 mls/hr IVPB Q8HR [facility] Rx#: [id number] Sodium Chloride 0.9% 1, 900 000 ml @ 100 mls/hr IV . Q10H [facility] Rx#:[id number] Oral 1640 Other: Voiding Method Toilet Toilet Toilet Urinal Urinal Urinal # Voids 3 1 - Labs CBC & Chem 7: 05/22/17 07:08 05/22/17 07:08 Labs: Abnormal Lab Results - Last 24 Hours (Table) 05/22/17 05/22/17 Range/Units 07:08 07:08 WBC 11.6 H (3.8-10.6) k/uL RBC 3.58 L (4.30-5.90) m/uL Hgb 11.4 L (13.0-17.5) gm/dL Hct 33.8 L (39.0-53.0) % Neutrophils # 10.6 H (1.3-7.7) k/uL Lymphocytes # 0.4 L (1.0-4.8) k/uL Sodium 136 L (137-145) mmol/L Potassium 5.3 H (3.5-5.1) mmol/L BUN 28 H (9-20) mg/dL Glucose 134 H (74-99) mg/dL Delta Bilirubin 0.3 H (0.0-0.2) mg/dL Total Protein 5.9 L (6.3-8.2) g/dL Albumin 3.4 L (3.5-5.0) g/dL Amylase 159 H (30-110) U/L Lipase 408 H (23-300) U/L
[2017-05-22 23:54] VITALS: RESP 16
[2017-05-23] MEDS ORDERED: oxyCODONE-APAP 5-325MG 1 EACH TAB PO PRN (00:45)
[2017-05-23] MEDS: IPRATROPIUM-ALBUTEROL 3 ML NEB INHALATION SCH ×4 (04:21→15:24)
[2017-05-23] MEDS ORDERED: PANTOPRAZOLE 40 MG TABLET PO SCH (07:30)
[2017-05-23] MEDS: SYMBICORT 160-4.5 MCG INHALER INHALATION SCH (08:01)
[2017-05-23 08:16] LABS: Calcium 8.8 mg/dL (8.4-10.2); Potassium 4.3 mmol/L (3.5-5.1)
[2017-05-23 08:22] LABS: Basophils # (A) 0.1 k/uL (0-0.2); Basophils % (A) 1 %; Eosinophils # (A) 0.2 k/uL (0-0.7); Eosinophils % (A) 2 %; HCT 31.3 % (39.0-53.0); HGB 10.7 gm/dL (13.0-17.5); Lymphocytes # (A) 0.9 k/uL (1.0-4.8); Lymphocytes % (A) 9 %; MCH 30.9 pg (25.0-35.0); MCHC 34.2 g/dL (31.0-37.0); MCV 90.5 fL (80.0-100.0); Monocytes # (A) 0.9 k/uL (0-1.0); Monocytes % (A) 8 %; Neutrophils # (A) 8.4 k/uL (1.3-7.7); Neutrophils % (A) 79 %; Platelet Count 295 k/uL (150-450); RBC 3.45 m/uL (4.30-5.90); WBC 10.6 k/uL (3.8-10.6)
[2017-05-23] MEDS: HEPARIN SODIUM,PORCINE 5,000 UNIT/ML 1 ML VIAL SQ SCH (08:46)
[2017-05-23] MEDS: LATANOPROST 0.005% OPHTH DROPS 2.5 ML BTL RIGHT EYE SCH (08:47)
[2017-05-23] MEDS ORDERED: ALBUTEROL NEBULIZED 2.5 MG/3 ML INHALATION PRN (08:49)
[2017-05-23] MEDS ORDERED: LISINOPRIL 10 MG TAB PO SCH (09:00)
[2017-05-23] MEDS ORDERED: FUROSEMIDE 40 MG TAB PO SCH (09:00)
[2017-05-23] MEDS ORDERED: GABAPENTIN 400 MG CAP PO SCH (09:00)
[2017-05-23] MEDS ORDERED: SPIRONOLACTONE 25 MG TAB PO SCH (09:00)
[2017-05-23] MEDS ORDERED: predniSONE 5 MG TAB PO SCH (09:00)
[2017-05-23] MEDS ORDERED: ATORVASTATIN 20 MG TAB PO SCH (09:00)
[2017-05-23] MEDS ORDERED: MONTELUKAST 10 MG TAB PO SCH (09:00)
--- NOTE | 2017-05-23 10:07 | P.PN ---
Subjective Progress Note Date: 05/23/17 Principal diagnosis: Pancreatitis 76-year-old male admitted with suspected drug-induced pancreatitis. Denies abdominal pain. Tolerating regular diet. Lipase 605. Amylase 153. Afebrile. Objective - Vital Signs Vital signs: Vital Signs Temp 98.5 F 05/23/17 07:23 Pulse 80 05/23/17 08:12 Resp 16 05/23/17 07:23 BP 123/72 05/23/17 07:23 Pulse Ox 95 05/23/17 07:23 Intake & Output 05/22/17 05/23/17 05/23/17 18:59 06:59 18:59 Weight 92.624 kg Other: Voiding Method Toilet Toilet Urinal Urinal # Voids 2 2 - Exam General appearance: The patient is alert, oriented, in no acute distress. HET: Head is normocephalic and atraumatic. Pupils are equal and reactive. Oropharynx is clear without lesions. Neck: Supple without lymphadenopathy. Trachea midline. Heart: S1 S2. Regular rate and rhythm. Lungs: No crackles or wheezes are heard. Abdomen: Soft, nontender, nondistended with bowel sounds. No peritoneal signs. No palpable organomegaly or masses. Extremities: Normal skin color and turgor. No cyanosis, rash, ulceration, clubbing, or edema. Radial and pedal pulses are 2/4 bilaterally. Neurological: No focal deficits. Strength and sensation are grossly intact. - Labs CBC & Chem 7: 05/23/17 07:19 05/23/17 07:19 Labs: Abnormal Lab Results - Last 24 Hours (Table) 05/23/17 05/23/17 Range/Units 07:19 07:19 RBC 3.45 L (4.30-5.90) m/uL Hgb 10.7 L (13.0-17.5) gm/dL Hct 31.3 L (39.0-53.0) % Neutrophils # 8.4 H (1.3-7.7) k/uL Lymphocytes # 0.9 L (1.0-4.8) k/uL BUN 28 H (9-20) mg/dL Glucose 104 H (74-99) mg/dL Amylase 153 H (30-110) U/L Lipase 605 H (23-300) U/L Assessment and Plan (1) Pancreatitis Narrative/Plan: Possible drug-induced presently asymptomatic with improvement in pancreatic enzymes. Current Visit: Yes Status: Acute Code(s): K85.90 - ACUTE PANCREATITIS WITHOUT NECROSIS OR INFECTION, UNSP SNOMED Code(s): 57088627 Plan: 1. Dr. Carty has reviewed morning chemistries considering patient is tolerating a diet without abdominal pain he is agreeable for discharge. Return to office in 10-14 days for reevaluation. Repeat pancreatic enzymes in 1 week. Assessment and plan of care discussed with Dr. Carty
[2017-05-23] MEDS ORDERED: MULTIVITAMINS, THERA 1 EACH TAB PO SCH (12:00)
[2017-05-23] MEDS ORDERED: RX INFO: IV CONTRAST WAS GIVEN 1 EACH MISC MISCELLANE PRN (12:53)
[2017-05-23] MEDS ORDERED: predniSONE 10 MG TAB PO STA (13:12)
--- NOTE | 2017-05-23 15:48 | P.PN ---
Subjective Progress Note Date: 05/23/17 Principal diagnosis: Acute pancreatitis likely secondary to antibiotics. New left lower lung mass, rule out malignancy Progress note dated 05/22/2017 The patient is a 76-year-old male admitted with a diagnosis of probable antibiotic-induced pancreatitis. The patient is angry because he wants to eat something. I did tell the nurse is to have them call the primary service and allow the patient to eat. Anyway, he did have a CT of the abdomen which was negative for any pancreatic abnormalities. Of note was the fact there was a lesion in the left lower lobe, which apparently is new since 2015. This will have to be evaluated with bronchoscopy and biopsy. The patient has a history of asthma. His asthma is well controlled. He was recently inpatient for an episode of asthma exacerbation. He was discharged and was readmitted the following day with acute pancreatitis thought to be related to either steroids and/or antibiotics. Again the CT of the abdomen was essentially unremarkable save for the lesion seen on the left lower lobe of the lung. Currently, from the abdominal standpoint he is doing well. Denies any abdominal pain or discomfort. No nausea or vomiting. He is not having any respiratory issues at this time as well. On 05/23/2017 patient is seen in follow-up on medical surgical floor. Denies any abdominal discomfort, today he is tolerating a regular diet. Denies any worsening dyspnea, his vital signs are stable, lung sounds are positive for scattered wheezes. Patient is on oral prednisone, currently down to 30 mg. Lipase is 65, amylase is 153. White count is 10.6, hemoglobin 10.7. Afebrile. We will obtain a follow-up CT chest with contrast today regarding new left lower lobe lung mass seen on the abdomen and pelvis CT, this is a new finding since previous CT in October 2015. Objective - Vital Signs Vital signs: Vital Signs Temp 98.5 F 05/23/17 07:23 Pulse 72 05/23/17 15:35 Resp 16 05/23/17 07:23 BP 123/72 05/23/17 07:23 Pulse Ox 95 05/23/17 07:23 Intake & Output 05/22/17 05/23/17 05/23/17 18:59 06:59 18:59 Weight 92.624 kg Other: Voiding Method Toilet Toilet Urinal Urinal # Voids 2 2 - Exam GENERAL EXAM: Alert, pleasant, 76-year-old comfortable in no apparent distress. HEAD: Normocephalic/atraumatic. EYES: Normal reaction of pupils, equal size. Conjunctiva pink, sclera white. NOSE: Clear with pink turbinates. THROAT: No erythema or exudates. NECK: No masses, no JVD, no thyroid enlargement, no adenopathy. CHEST: No chest wall deformity. Symmetrical expansion. LUNGS: Equal air entry with scattered wheezes CVS: Regular rate and rhythm, normal S1 and S2, no gallops, no murmurs, no rubs ABDOMEN: Soft, obese but nontender. No hepatosplenomegaly, normal bowel sounds , no guarding or rigidity. EXTREMITIES: No clubbing, no edema, no cyanosis, 2+ pulses and upper and lower extremities. MUSCULOSKELETAL: Muscle strength and tone normal. SPINE: No scoliosis or deformity SKIN: No rashes CENTRAL NERVOUS SYSTEM: Alert and oriented -3. No focal deficits, tone is normal in all 4 extremities. PSYCHIATRIC: Alert and oriented -3. Appropriate affect. Intact judgment and insight. - Labs CBC & Chem 7: 05/23/17 07:19 05/23/17 07:19 Labs: Abnormal Lab Results - Last 24 Hours (Table) 05/23/17 05/23/17 Range/Units 07:19 07:19 RBC 3.45 L (4.30-5.90) m/uL Hgb 10.7 L (13.0-17.5) gm/dL Hct 31.3 L (39.0-53.0) % Neutrophils # 8.4 H (1.3-7.7) k/uL Lymphocytes # 0.9 L (1.0-4.8) k/uL BUN 28 H (9-20) mg/dL Glucose 104 H (74-99) mg/dL Amylase 153 H (30-110) U/L Lipase 605 H (23-300) U/L Assessment and Plan Plan: Assessment: Acute pancreatitis, likely related to antibiotics. Certainly steroids could be the other etiology of his acute pancreatitis. Recent asthma exacerbation requiring steroids and antibiotics, much improved New left lower lobe lung lesion History of hyperlipidemia History of hypertension History of osteoarthritis History of macular degeneration Right olecranon bursitis History of Pseudomonas pneumonia History of bronchiectasis Multiple other medical problems and comorbidities Plan: Obtain follow-up CT chest with contrast in regards to the new left lower lobe lung lesion seen on the CT abdomen/pelvis. We'll put the patient back on his prednisone taper, patient remains afebrile. No need for antibiotics right now. Continue bronchodilators and Symbicort. Tolerating regular diet, denies any abdominal discomfort. I performed a history & physical examination of the patient and discussed their management with my nurse practitioner, Charito Cabral. I reviewed the nurse practitioner's note and agree with the documented findings and plan of care. Lung sounds are positive for diffuse wheezes . The findings and the impression was discussed with the patient. I attest to the documentation by the nurse practitioner. Time with Patient: Less than 30
[2017-05-23 16:18] VITALS: BP 111/59; PULSE 99; TEMP 97.6
--- NOTE | 2017-05-23 16:24 | CT ---
EXAMINATION TYPE: CT chest w con DATE OF EXAM: 05/23/2017 COMPARISON: Chest x-ray from 2 days ago HISTORY: LLL pneumonia. Abnormal chest x-ray. CT DLP: 450.1 mGycm. Automated Exposure Control for Dose Reduction was Utilized. TECHNIQUE: CT scan of the thorax is performed following with IV Contrast, patient injected with 100m l mL of Isovue 300. FINDINGS: LUNGS: There is mild underlying chronic parenchymal change with scattered areas of linear scarring an d/or atelectasis most prominent in the bilateral lower lobes. Corresponding to area of chest x-ray co ncern there is suspicious nodule measuring 2.3 x 2.2 cm abutting the inferior pleura on axial image 4 4. No pleural effusion or pneumothorax is seen bilaterally. Tracheobronchial tree is patent. MEDIASTINUM: There are no greater than 1 cm hilar or mediastinal lymph nodes. Slightly prominent but subcentimeter right infrahilar lymph nodes near axial image 35 are noted. No cardiomegaly is seen. Tiny pericardial effusion anteriorly inferiorly is present OTHER: Some scattered diverticula in the visualized sigmoid colon are noted. There is moderate multil evel disc space narrowing and spurring in the spine. IMPRESSION: Corresponding to chest x-ray abnormality there is suspicious 2.3 cm posterior inferior le ft lower lobe nodule. Neoplasm needs to BE considered. Advised PET/CT follow-up. No suspicious focal infiltrate is present.
[2017-05-23] MEDS ORDERED: THEOPHYLLINE 24 HOUR 400 MG CAP.ER.24H PO SCH (21:00)
[2017-05-23] MEDS ORDERED: VIT A,C & E-LUTEIN-MINERALS 1 EACH TAB PO SCH (21:00)
[2017-05-23] MEDS ORDERED: NON-FORMULARY DRUG (Glucosam/Chon-Msm1/C/Mang/Bosw [Glucosamine-Chondroitin Tablet] 1 TAB) PO SCH (21:00)
[2017-05-24] MEDS ORDERED: PREDNISONE PO SCH (09:00)
[2017-05-24] MEDS ORDERED: NON-FORMULARY DRUG (Omega-3 Fatty Acids/Fish Oil [Fish Oil 1,000 Mg Softgel] 1 CAP) PO SCH (09:00)
[2017-05-24] MEDS ORDERED: predniSONE 20 MG TAB PO SCH (09:00)
[2017-05-25] MEDS ORDERED: predniSONE 10 MG TAB PO SCH (09:00)
[2017-05-29] MEDS ORDERED: predniSONE 20 MG TAB PO SCH (09:00)
== END 2017-05-23 18:00 | disposition home or self-care (01) | DRG 440 ==
LOC: EC 01:26 → 5MS5E 03:22
PROVIDERS: ADMIT Internal Medicine; ATTEND Internal Medicine
DX: K85.30 Drug induced acute pancreatitis without necrosis or infection (principal); E87.5 Hyperkalemia; J44.9 Chronic obstructive pulmonary disease, unspecified; T36.1X5A Adverse effect of cephalosporins and other beta-lactam antibiotics, initial encounter; J45.50 Severe persistent asthma, uncomplicated; R91.1 Solitary pulmonary nodule; E78.5 Hyperlipidemia, unspecified; M19.042 Primary osteoarthritis, left hand; M19.041 Primary osteoarthritis, right hand; I10 Essential (primary) hypertension; H35.30 Unspecified macular degeneration; M19.072 Primary osteoarthritis, left ankle and foot; M19.071 Primary osteoarthritis, right ankle and foot; M47.812 Spondylosis without myelopathy or radiculopathy, cervical region; J33.9 Nasal polyp, unspecified; K40.90 Unilateral inguinal hernia, without obstruction or gangrene, not specified as recurrent; G89.29 Other chronic pain; N40.0 Benign prostatic hyperplasia without lower urinary tract symptoms; M54.5 Low back pain; S93.401A Sprain of unspecified ligament of right ankle, initial encounter; Z79.51 Long term (current) use of inhaled steroids; Z79.52 Long term (current) use of systemic steroids; Z79.899 Other long term (current) drug therapy; Z87.11 Personal history of peptic ulcer disease; Z87.01 Personal history of pneumonia (recurrent); Z96.652 Presence of left artificial knee joint; Z87.891 Personal history of nicotine dependence; Z88.6 Allergy status to analgesic agent; Z88.8 Allergy status to other drugs, medicaments and biological substances; Z82.5 Family history of asthma and other chronic lower respiratory diseases; Z82.62 Family history of osteoporosis; Z80.43 Family history of malignant neoplasm of testis; Z81.8 Family history of other mental and behavioral disorders
CPT/HCPCS: 36415; 71046; 71260; 74178; 80048; 80053; 80076; 81003; 82150; 83690; 84478; 85025; 93005; 94640; 96374; 96375; 96376; 99285

== ENCOUNTER → 2017-05-28 | Outpatient (CLI) | payer MEDICARE, BC ==
--- NOTE | 2017-05-28 19:34 | PE ---
EXAMINATION TYPE: PET CT fusion skull to thigh DATE OF EXAM: 05/28/2017 COMPARISON: CT chest [address] abdomen and pelvis from 7 days ago HISTORY: Solitary pulmonary nodule, abnormal CT. TECHNIQUE: Following the intravenous administration of 12.29 mCi of F-18 FDG, whole body images are performed from the skull base to the midthigh. Images are reviewed on the computer in the coronal, a xial, and sagittal planes. Reconstructed rotating images are created on independent workstation and reviewed on the computer. A noncontrast CT is performed in conjunction with the PET scan. SCAN: Initial Scan FINDINGS: SKULL BASE AND NECK: No suspicious areas of hypermetabolic uptake are present CHEST, MEDIASTINUM, AND HILAR REGION: Corresponding to recent CT is there is posterior left basilar n odule measuring 2.8 x 2.3 cm with abnormal hypermetabolic uptake, max SUV is 9.54. No suspicious additional areas of abnormal hypermetabolic uptake are seen including mediastinum and l eft hilar region. There is background emphysematous change with bibasilar scarring redemonstrated. ABDOMEN AND PELVIS: No areas of suspicious hypermetabolic uptake are seen. No adrenal masses are note d. Normal bowel and bladder uptake is seen. OSSEOUS STRUCTURES: No suspicious hypermetabolic uptake is present. OTHER CT: Evidence of prior sinus surgery. Scleral calcification both globes is noted. Small degree of bilateral gynecomastia. There is coronary artery calcification which is noted marker for coronary artery disease. There is tiny pericardial effusion inferiorly. Scattered diverticula throughout the visualized colon. There are scattered pelvic phleboliths. There is moderate sized fat-containing right inguinal hernia. There is multilevel moderate to severe spurring and disc space narrowing in the lumbar spine. There i s postsurgical change mid to lower lumbar levels redemonstrated. Slight underlying scoliotic curvatur e is present. There is mild to moderate calcified plaque in aorta extending into branch vessels. IMPRESSION: Hypermetabolic uptake in left posterior basilar nodule is suggestive of neoplasm. No susp icious adenopathy or metastatic disease noted. TNM STAGING T1c,N0,M0 AJCC STAGING STAGE I
== END ==
LOC: RADPETMAIN 16:49
PROVIDERS: ATTEND Internal Medicine
DX: R91.1 Solitary pulmonary nodule (principal)
CPT/HCPCS: 78815; A9552

== ENCOUNTER 2017-06-11 17:21 | Emergency (ER) | payer MEDICARE, BC ==
--- NOTE | 2017-06-11 19:10 | ED ---
General Adult HPI - General Chief complaint: Wound/Laceration Stated complaint: lac on leg Time Seen by Provider: 06/11/17 17:55 Source: patient, RN notes reviewed Mode of arrival: ambulatory Limitations: no limitations - History of Present Illness Initial comments: 76-year-old male presents to the emergency department for a chief complaint of laceration on the lateral aspect of the lower leg 1 hour. Patient was jumping off his tractor when something metal caught his leg. Patient states he has thin skin because he has been on prednisone for 30 years due to asthma. Patient denies pain in the right lower extremity. Patient has full range motion of the right ankle and the and hip. Patient is able to walk on it. Patient did not fall or hit his head. He did not sustain any other injuries. Patient's tetanus is up-to-date as of 2 years ago. Patient has no other complaints at this time and denies shortness of breath, chest pain, abdominal pain, headaches, visual changes, nausea or vomiting. - Related Data Home Medications Medication Instructions Recorded Confirmed Albuterol Sulfate [Proair Hfa] 2 puff INHALATION RT-QID PRN 07/09/13 05/21/17 Enalapril [Vasotec] 5 mg PO DAILY 07/09/13 05/21/17 Fluticasone/Salmeterol [Advair 1 puff INHALATION RT-BID 07/09/13 05/21/17 500-50 Diskus] Furosemide 40 mg PO DAILY 09/08/15 05/21/17 Multivitamins, Thera [Multivitamin 1 tab PO DAILY 09/08/15 05/21/17 (formulary)] Vit C/E/Zn/Coppr/Lutein/Zeaxan 1 cap PO BID 09/08/15 05/21/17 [Preservision Areds 2 Softgel] Montelukast [Singulair] 10 mg PO DAILY 11/08/15 05/21/17 oxyCODONE-APAP 10-325MG [Percocet 1 tab PO Q6HR PRN 11/08/15 05/21/17 10-325 mg] Atorvastatin [Lipitor] 20 mg PO DAILY 01/24/17 05/21/17 Ipratropium-Albuterol Nebulize 3 ml INHALATION RT-QID 01/24/17 05/21/17 [Duoneb 0.5 mg-3 mg/3 ml Soln] Latanoprost [Xalatan 0.005%] 1 drop RIGHT EYE DAILY 05/16/17 05/21/17 Fork-3 Fatty Acids/Fish Oil [Fish 1 cap PO DAILY 05/16/17 05/21/17 Oil 1,000 mg Softgel] Theophylline Anhydrous 400 mg PO BID 05/16/17 05/21/17 [Theophylline] Glucosam/Sergio-Msm1/C/Chandu/Bosw 1 tab PO BID 05/21/17 05/21/17 [Glucosamine-Chondroitin Tablet] predniSONE See Taper PO DAILY 05/21/17 05/21/17 Previous Rx's Medication Instructions Recorded Cefuroxime Axetil [Ceftin] 500 mg PO BID 8 Days #16 tab 05/18/17 Gabapentin [Neurontin] 400 mg PO BID cap 05/19/17 Spironolactone [Aldactone] 25 mg PO DAILY tab 05/19/17 Allergies Allergy/AdvReac Type Severity Reaction Status Date / Time aspirin Allergy does not Verified 06/11/17 17:28 take r/t hx of nasal polyps NSAIDS (Non-Steroidal Allergy states was Verified 06/11/17 17:28 Anti-Inflamma told never to take Review of Systems ROS Statement: Those systems with pertinent positive or pertinent negative responses have been documented in the HPI. ROS Other: All systems not noted in ROS Statement are negative. Past Medical History Past Medical History: Asthma, Cancer, COPD, Eye Disorder, Hyperlipidemia, Hypertension, Osteoarthritis (OA), Pneumonia, Prostate Disorder Additional Past Medical History / Comment(s): Macular degeneration of the R eye , osteoarthritis hands/feet and neck, intermittent lower back pain, chronic sinus polyps, 2016 where he was treated for a right olecranon bursitis/ cellulitis with sepsis, peptic ulcer disease pt denies previous history of GI bleed, pneumonias, PSEUDOMONIS PNEUMONIA AND SEPSIS POST BACK SX 2016, 02/2017 bronchoscopy with BAL showed persistent severe asthma, pseudomonas pneumonia/ broncheictasis, injured R ankle one month ago/still has some edema and using a cane. lung cancer History of Any Multi-Drug Resistant Organisms: None Reported Past Surgical History: Back Surgery, Joint Replacement, Orthopedic Surgery, Prostate Surgery, Tonsillectomy Additional Past Surgical History / Comment(s): 02/2017 bronchoscopy with BAL, Low BACK SX, Multiple surgeries for nasal polyps, LEFT KNEE ATRHROSCOPY, left total knee arthroplasty, colonoscopy, benign growth removed from his L thumb, correction of a deviated nasal septum, eye for R eye injections for macular degeneration, TURP. Past Anesthesia/Blood Transfusion Reactions: No Reported Reaction Past Psychological History: No Psychological Hx Reported Smoking Status: Former smoker Past Alcohol Use History: Occasional Past Drug Use History: None Reported - Past Family History Father Family Medical History: COPD Additional Family Medical History / Comment(s): emphysema Mother Additional Family Medical History / Comment(s): osteoporosis, lived to be 94 Son(s) Family Medical History: Cancer Additional Family Medical History / Comment(s): testicular cancer, mentally challenged General Exam Limitations: no limitations General appearance: alert, in no apparent distress Head exam: Present: atraumatic, normocephalic, normal inspection Neck exam: Present: normal inspection, full ROM. Absent: tenderness, meningismus, lymphadenopathy Respiratory exam: Present: normal lung sounds bilaterally. Absent: respiratory distress, wheezes, rales, rhonchi, stridor Cardiovascular Exam: Present: regular rate, normal rhythm, normal heart sounds. Absent: systolic murmur, diastolic murmur, rubs, gallop, clicks Extremities exam: Present: full ROM (Full range of motion of the right ankle knee and hip.), normal capillary refill (Refill less than 2 seconds and pedal pulse 2+ in right lower extremity), other (Patient has an 8 cm L-shaped laceration to the lateral aspect of the right lower leg. No signs of infection noted. No signs of foreign body.). Absent: tenderness (No tenderness in the right lower extremity including the hip knee ankle or foot.), joint swelling, calf tenderness Back exam: Present: normal inspection, full ROM. Absent: tenderness Neurological exam: Present: alert, oriented X3, CN II-XII intact Course Vital Signs 06/11/17 17:23 Temperature 98.2 F Pulse Rate 105 H Respiratory 20 Rate Blood Pressure 135/70 O2 Sat by Pulse 96 Oximetry Procedures - Procedures Initial comment: Body area: Lateral aspects right lower leg Laceration length: 8 cm Foreign bodies: no foreign bodies Tendon involvement: none Nerve involvement: none Vascular damage: no Anesthesia: local infiltration Local anesthetic: 10 mL 1% lidocaine Preparation: Patient was prepped and draped in the usual sterile fashion. Irrigation solution: saline Irrigation method:saline jet lavage Skin closure: 5-0 Ethilon using sterile technique Number of sutures: 19 Technique: interupted Dressing: antibiotic ointment/ gauze Patient tolerance: Patient tolerated the procedure well with no immediate complications. Medical Decision Making - Medical Decision Making 76-year-old male presents the emergency department for a chief complaint of laceration to the right lower extremity. Patient states he has been on steroids for years and his skin is thin. Patient denies any pain in his right leg. Patient denies injuring his ankle knee or hip and has full range of motion and can walk. Patient has an L-shaped 8 cm laceration to the lateral aspect of the lower leg. This was cleaned with saline and iodine. 19 sutures were placed and it was covered with bacitracin. Neurovascular intact before and after sutures applied. Patient will be discharged home with instructions to apply bacitracin and keep the area clean. He will return to the emergency Department if he notices any signs of infection. He will return in 10 days regardless to have sutures removed. He was educated to keep an eye on the healing of it as it is an L-shaped and sometimes the flaps have difficulty with blood flow and healing. He will follow up with primary care in 1-2 days. Disposition Clinical Impression: Laceration Disposition: HOME SELF-CARE Condition: Good Instructions: Care For Your Stitches (ED), Laceration (ED) Additional Instructions: Please keep the area clean and apply antibiotic ointment for the next couple days. He may shower and wash the area but do not submerge it for 48 hours. Please return in 10 days to have sutures removed. Return earlier if he notices any signs of infection or worsening symptoms. Remember to keep an eye on the healing of it. Follow-up with primary care in 1-2 days. Is patient prescribed a controlled substance at d/c from ED?: No Referrals: Al Ramirez MD [Primary Care Provider] - 1-2 days Time of Disposition: 19:10
[2017-06-11 19:29] VITALS: BP 133/70; PULSE 97; RESP 16; TEMP 98
== END 2017-06-11 19:29 | disposition home or self-care (01) ==
LOC: EC 17:21
DX: S81.811A Laceration without foreign body, right lower leg, initial encounter (principal); J44.9 Chronic obstructive pulmonary disease, unspecified; E78.5 Hyperlipidemia, unspecified; I10 Essential (primary) hypertension; H35.30 Unspecified macular degeneration; Z87.891 Personal history of nicotine dependence; Z79.51 Long term (current) use of inhaled steroids; Z79.52 Long term (current) use of systemic steroids; Z79.899 Other long term (current) drug therapy; Z88.6 Allergy status to analgesic agent; Z87.01 Personal history of pneumonia (recurrent); Z96.652 Presence of left artificial knee joint; Z85.118 Personal history of other malignant neoplasm of bronchus and lung; Z82.5 Family history of asthma and other chronic lower respiratory diseases
CPT/HCPCS: 12004; 99282

== ENCOUNTER → 2018-01-02 | Outpatient (CLI) | payer MEDICARE, BC ==
[2018-01-02 10:31] LABS: Basophils # (A) 0.1 k/uL (0-0.2); Basophils % (A) 1 %; Eosinophils # (A) 0.5 k/uL (0-0.7); Eosinophils % (A) 5 %; HCT 37.1 % (39.0-53.0); HGB 12.1 gm/dL (13.0-17.5); Lymphocytes # (A) 1.3 k/uL (1.0-4.8); Lymphocytes % (A) 13 %; MCH 29.5 pg (25.0-35.0); MCHC 32.8 g/dL (31.0-37.0); MCV 90.1 fL (80.0-100.0); Mean Platelet Volume 6.3; Monocytes # (A) 1.1 k/uL (0-1.0); Monocytes % (A) 11 %; Neutrophils # (A) 6.6 k/uL (1.3-7.7); Neutrophils % (A) 67 %; Platelet Count 310 k/uL (150-450); RBC 4.11 m/uL (4.30-5.90); RDW 14.6 % (11.5-15.5); WBC 9.8 k/uL (3.8-10.6)
[2018-01-02 13:08] LABS: Total Eosinophil Count 530 #EOS/uL (150-300)
[2018-01-02 16:07] LABS: Albumin 4.5 g/dL (3.80-4.90); Albumin/Globulin Ratio 2.25 (1.20-2.10); Anion Gap 9.3 mmol/L (4.00-12.00); Calcium 9.7 mg/dL (8.7-10.3); Carbon Dioxide 28.7 mmol/L (21.6-31.8); LDL Cholesterol,Calculated 67.2 mg/dL (0.0-131.0); Potassium 4.2 mmol/L (3.5-5.5); Total Bilirubin 0.4 mg/dL (0.3-1.2); Total Protein 6.5 g/dL (6.2-8.2); VLDL Calculation 55.8 mg/dL (5.00-40.00)
== END | disposition home or self-care (01) ==
LOC: LABWHC1 09:22
PROVIDERS: ATTEND Internal Medicine
DX: Z00.00 Encounter for general adult medical examination without abnormal findings (principal); E78.2 Mixed hyperlipidemia; I11.9 Hypertensive heart disease without heart failure; J45.909 Unspecified asthma, uncomplicated
CPT/HCPCS: 36415; 80053; 80061; 85008; 85025

== ENCOUNTER → 2018-05-27 | Outpatient (CLI) | payer MEDICARE, BC ==
[2018-05-27 08:50] LABS: HCT 35.7 % (39.0-53.0); HGB 11.9 gm/dL (13.0-17.5); MCH 30.4 pg (25.0-35.0); MCHC 33.2 g/dL (31.0-37.0); MCV 91.6 fL (80.0-100.0); Mean Platelet Volume 6.6; Platelet Count 339 k/uL (150-450); RDW 13.4 % (11.5-15.5); WBC 6.9 k/uL (3.8-10.6)
[2018-05-27 17:04] LABS: Albumin 4.3 g/dL (3.80-4.90); Albumin/Globulin Ratio 2.15 (1.60-3.17); Anion Gap 11.6 mmol/L (4.00-12.00); Calcium 9.8 mg/dL (8.7-10.3); Carbon Dioxide 28.4 mmol/L (21.6-31.8); LDL Cholesterol,Calculated 71.4 mg/dL (0.0-131.0); Potassium 4.6 mmol/L (3.5-5.5); Total Bilirubin 0.3 mg/dL (0.3-1.2); Total Protein 6.3 g/dL (6.2-8.2); VLDL Calculation 34.6 mg/dL (5.00-40.00)
== END | disposition home or self-care (01) ==
LOC: LABWHC1 08:14
PROVIDERS: ATTEND Internal Medicine
DX: N40.1 Benign prostatic hyperplasia with lower urinary tract symptoms (principal); I11.9 Hypertensive heart disease without heart failure; J44.9 Chronic obstructive pulmonary disease, unspecified; K21.0 Gastro-esophageal reflux disease with esophagitis
CPT/HCPCS: 80061; 80053; 85027; 82272; 36415; G0103

== ENCOUNTER → 2018-11-13 | Outpatient (CLI) | payer MEDICARE, BC ==
--- NOTE | 2018-11-13 09:40 | US ---
EXAMINATION TYPE: US carotid duplex BILAT DATE OF EXAM: 11/13/2018 COMPARISON: NONE CLINICAL HISTORY: I34.0 Nonrheumatic mitral (valve) insufficiency. Patient states no symptoms. EXAM MEASUREMENTS: RIGHT: Peak Systolic Velocity (PSV) cm/sec ----- Right CCA: 109.4 ----- Right ICA: 76.4 ----- Right ECA: 94.4 ICA/CCA ratio: 0.7 RIGHT: End Diastole cm/sec ----- Right CCA: 19.7 ----- Right ICA: 30.3 ----- Right ECA: 19.9 LEFT: Peak Systolic Velocity (PSV) cm/sec ----- Left CCA: 56.8 ----- Left ICA: 66.0 ----- Left ECA: 67.4 ICA/CCA ratio: 1.2 LEFT: End Diastole cm/sec ----- Left CCA: 18.4 ----- Left ICA: 21.8 ----- Left ECA: 15.9 VERTEBRALS (direction of flow): Right Vertebral: Antegrade Left Vertebral: Antegrade Rhythm: Arrhythmia Bilateral intimal thickening, no elevated velocities, no significant stenosis. IMPRESSION: 1. Mild degree of grayscale atheromatous plaquing with no sonographically evident hemodynamically sig nificant stenosis within either visualized carotid arterial system. 2. Incidentally noted cardiac arrhythmia. Correlate with EKG. Criteria for Assigning % of Stenosis / Diameter reduction (Estimation based on the indirect measurements of the internal carotid artery velocities (ICA PSV). 1. Normal (no stenosis)=ICA PSV < 125 cm/s: ratio < 2.0: ICA EDV<40 cm/s. 2. Less than 50% stenosis=ICA PSV < 125 cm/s: ratio < 2.0: ICA EDV<40 cm/s. 3. 50 to 69% stenosis=ICA PSV of 125 to 230 cm/s: ration 2.0 ? 4.0: ICA EDV 40-100 cm/s. 4. Greater than 70% stenosis to near occlusion= ICA PSV > 230 cm/s: ratio > 4.0: ICA EDV > 100 cm/s. 5. Near occlusion= ICA PSV velocities may be low or undetectable: variable ratio and ICA EDV. 6. Total occlusion=unable to detect flow.
--- NOTE | 2018-11-13 11:00 | ECHOF ---
Referral Reason:I34.0 Nonrheumatic mitral (valve) insufficiency MEASUREMENTS -------- HEIGHT: 165.1 cm WEIGHT: 80.3 kg BP: 125/60 RVIDd: 3.7 cm (< 3.3) IVSd: 1.3 cm (0.6 - 1.1) LVIDd: 4.6 cm (3.9 - 5.3) LVPWd: 1.1 cm (0.6 - 1.1) IVSs: 1.7 cm LVIDs: 3.0 cm LVPWs: 1.8 cm LA Diam: 3.7 cm (2.7 - 3.8) LAESV Index (A-L): 31.02 ml/m Ao Diam: 3.8 cm (2.0 - 3.7) AV Cusp: 2.0 cm (1.5 - 2.6) MV EXCURSION: 12.148 mm (> 18.000) MV EF SLOPE: 41 mm/s (70 - 150) EPSS: 1.7 cm MV E Bo: 0.84 m/s MV DecT: 277 ms MV A Bo: 1.02 m/s MV E/A Ratio: 0.82 AV maxP.11 mmHg AV meanP.58 mmHg AR PHT: 792 ms RAP: 5.00 mmHg RVSP: 30.90 mmHg TAPSE: 19.18 mm FINDINGS -------- Resting bradycardia (HR<60bpm). This was a technically adequate study. The left ventricular size is normal. There is mild concentric left ventricular hypertrophy. Overa left ventricular systolic function is normal with, an EF between 55 - 60 %. The right ventricle is mildly enlarged. LA is midly dilated 29-33ml/m2. The right atrium is normal in size. Interatrial and interventricular septum intact. There is mild to moderate aortic valve sclerosis. There is [id number] aortic regurgitation. There is mild aortic stenosis present. Peak/mean gradient across the Aortic Valve is 17.11mmHg / 7 .58mmHg. Mild mitral annular calcification present. Mild tricuspid regurgitation present. Right ventricular systolic pressure is normal at < 35 mmHg. There is no pulmonic regurgitation present. The aortic root is dilated measuring 3.8cm. Normal inferior vena cava with normal inspiratory collapse consistent with estimated right atrial pre ssure of 5 mmHg. There is no pericardial effusion. CONCLUSIONS -------- 1. Resting bradycardia (HR<60bpm). 2. This was a technically adequate study. 3. The left ventricular size is normal. 4. There is mild concentric left ventricular hypertrophy. 5. Overall left ventricular systolic function is normal with, an EF between 55 - 60 %. 6. The right ventricle is mildly enlarged. 7. LA is midly dilated 29-33ml/m2. 8. The right atrium is normal in size. 9. Interatrial and interventricular septum intact. 10. There is mild to moderate aortic valve sclerosis. 11. There is [id number] aortic regurgitation. 12. There is mild aortic stenosis present. 13. Peak/mean gradient across the Aortic Valve is 17.11mmHg / 7.58mmHg. 14. Mild mitral annular calcification present. 15. Mild tricuspid regurgitation present. 16. Right ventricular systolic pressure is normal at < 35 mmHg. 17. There is no pulmonic regurgitation present. 18. The aortic root is dilated measuring 3.8cm. 19. Normal inferior vena cava with normal inspiratory collapse consistent with estimated right atrial pressure of 5 mmHg. 20. There is no pericardial effusion. [employer]: Alondra Penny RDCS
== END | disposition home or self-care (01) ==
LOC: RADECHMAIN 08:24
PROVIDERS: ATTEND Internal Medicine
DX: I35.0 Nonrheumatic aortic (valve) stenosis (principal); I65.23 Occlusion and stenosis of bilateral carotid arteries
CPT/HCPCS: 93306; 93880

== ENCOUNTER → 2019-03-09 | Outpatient (CLI) | payer MEDICARE, BC ==
--- NOTE | 2019-03-09 13:51 | CT ---
EXAMINATION TYPE: CT image guided sinus DATE OF EXAM: 03/09/2019 COMPARISON: None HISTORY: Sinus congestion. CT DLP: 522 mGycm. Automated Exposure Control for Dose Reduction was Utilized. TECHNIQUE: CT scan of the sinuses is performed without contrast, axial images are obtained FINDINGS: There is been previous partial ethmoidectomy and medial maxillary anatomy. Mucosal thickeni ng involves the maxillary sinuses and remaining ethmoid air cells. Underlying polyposis difficult to exclude. Near-complete opacification sphenoid sinus. Mild mucosal thickening right frontal sinus. Visualized portion of mastoid air cells show no abnormal opacification. The globes are intact bilate rally. IMPRESSION: Pansinusitis and/or polyposis of the postsurgical changes noted as discussed.
== END ==
LOC: RADCTMAIN 12:50
PROVIDERS: ATTEND Otolaryngology
DX: J32.9 Chronic sinusitis, unspecified (principal); Z98.890 Other specified postprocedural states
CPT/HCPCS: 70486

== ENCOUNTER 2019-04-06 07:52 | Day surgery (SDC) | payer MEDICARE, BC ==
[2019-04-04 14:44] VITALS: BMI 28.1
[~2019-04-06 07:52] MED LIST changes: -ALBUTEROL NEB (CONC) 2.5 MG/0.5 ML INHALATION ONE; +DEXAMETHASONE SOD PHOSPHATE 4 MG/ML 1 ML VIAL IV ONE; +FAMOTIDINE 20 MG/2 ML VIAL IV ONE; -LACTATED RINGERS 1,000 ML IV ONE; -LIDOCAINE 2% (PF) 20 MG/ML 2 ML AMP INHALATION ONE; +MIDAZOLAM 2 MG/2 ML VIAL IV PRN; +OXYMETAZOLINE 0.05% NASL SPRAY 1 SPRAY BOTTLE NASAL ONE
[2019-04-06] MEDS: ONDANSETRON 4 MG/2 ML VIAL IVP ONE ×2 (08:29→12:21)
[2019-04-06] MEDS ORDERED: OXYMETAZOLINE 0.05% NASL SPRAY 1 SPRAY BOTTLE NASAL ONE (08:43)
[2019-04-06] MEDS ORDERED: PHENYLEPHRINE-0.9% NACL SYG 1 MG/10 ML SYRINGE ONE (10:57)
[2019-04-06] MEDS ORDERED: PROPOFOL 10 MG/ML 20 ML VIAL IV ONE (10:57)
[2019-04-06] MEDS ORDERED: MIDAZOLAM 2 MG/2 ML VIAL ONE (10:57)
[2019-04-06] MEDS ORDERED: GLYCOPYRROLATE 0.2 MG/ML 2 ML VIAL ONE (10:57)
[2019-04-06] MEDS ORDERED: SUCCINYLCHOLINE CHLORIDE 100 MG/5 ML SYR IV ONE (10:57)
[2019-04-06] MEDS ORDERED: LIDOCAINE 1% INJ 10MG/ML (20 ML MDV) ONE (10:57)
[2019-04-06] MEDS ORDERED: NEOSTIGMINE 1 MG/ML 10 ML VIAL ONE (10:57)
[2019-04-06] MEDS ORDERED: ROCURONIUM BROMIDE 10 MG/ML 5 ML VIAL IV ONE (10:57)
[2019-04-06] MEDS ORDERED: fentaNYL (PF) 50 MCG/ML 2 ML AMP ONE (10:57)
[2019-04-06] MEDS ORDERED: BUPIVACAINE (PF) 0.5% 30 ML VIAL MISCELLANE ONE (11:21)
[2019-04-06] MEDS ORDERED: EPINEPHrine 1 MG/ML (MDV) 30 ML VIAL SQ ONE (11:21)
[2019-04-06] MEDS ORDERED: FLUORESCEIN STRIPS 1 MG STRIP MISCELLANE ONE (11:21)
[2019-04-06] MEDS ORDERED: LIDOCAINE 1%-EPI 1:100,000 20 ML VIAL SUBMUCOSAL ONE ×2 (11:21)
[2019-04-06] MEDS ORDERED: LACTATED RINGERS 1,000 ML IV ONE (12:06)
[2019-04-06 12:13] VITALS: TEMP 97.7
[2019-04-06] MEDS: HYDROmorphone 0.5 MG/0.5 ML SYRINGE IVP PRN ×4 (12:21→12:35)
--- NOTE | 2019-04-06 12:23 | P.OP ---
Date of Procedure: 04/06/19 Preoperative Diagnosis: Chronic pansinusitis with sinonasal polyposis Postoperative Diagnosis: Same Procedure(s) Performed: Image guided functional endoscopic sinus surgery with polypectomy and with placement of propel Anesthesia: EDDIEA Surgeon: Kaden Jimenez Estimated Blood Loss (ml): 5 Pathology: other (Sinonasal) Condition: stable Disposition: PACU Indications for Procedure: This patient has had problems with chronic sinusitis and sinonasal polyposis. 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 The patient has failed medical therapy and sinus surgery was recommended. We will be removing polyps reopening the sinuses and placing propel in the sinuses that have occlusion. Operative Findings: Patient had widespread sinonasal polyps of the frontal maxillary ethmoid and sphenoid sinuses. Description of Procedure: Patient was taken to the operative room and placed in the supine position. A general inhalation anesthetic was administered to the patient by mask and subsequently intubated with a cuffed endotracheal tube by the department of anesthesia with a functioning IV line in place. The patient was monitored throughout the entire case by the department of anesthesia. The lateral nasal wall septum and turbinates were injected with lidocaine 1% with epinephrine 1 100,000 utilizing a 0 Pruitt adilene scope. 10 minutes were allowed wait for full vasoconstrictive effects to take place At this time we perform nasal antral windows with use of a Tanja and entered the maxillary sinuses with a 0 scope and we remove diseased tissue from the maxillary sinuses bilaterally. We then widened the maxillary ostium with a backbiter and a microdebrider removing polyps and debris. We entered the maxillary sinuses at that location and remove diseased tissue. We continued our dissection through the ethmoid air cells removing all ethmoid septations and polyps and diseased tissue and then entered the sphenoid sinus bilaterally and did the same opening the sphenoid sinuses entering the sphenoid sinus removing diseased tissue from the sphenoid sinus. After the bilateral ethmoid sinuses and sphenoid sinuses were opened with diseased tissue removed we then explored the nasal frontal duct where we inserted a balloon up into the nasal frontal duct to dilate this area. We utilized an entellus system and dilated the nasal frontal duct we then entered the frontal sinus with use of an endoscope explored the frontal sinuses bilaterally and we remove bilateral diseased tissue from the frontal sinuses. Propel many's were placed bilaterally and we placed propel contour is bilaterally and the maxillary sinuses. To summarize we open the maxillary ethmoid sphenoid and frontal sinuses, we remove diseased tissue and polyps and placed propel many propel standard propel contour bilaterally. The propel standard was placed between the middle turbinate and the lateral nasal wall. The propel contour was placed in the maxillary sinus ostium and the propel many with for the frontal sinus. The patient tolerated this well. Alena was placed and the patient was taken to postanesthesia recovery in excellent condition. Follow-up will be in the office in one week the patient is to call me if any from should arise.
[2019-04-06 12:24] VITALS: RESP 16
--- NOTE | 2019-04-06 13:03 | OP ---
OPERATIVE REPORT OPERATIVE NOTE ADDENDUM: DATE OF SERVICE: 04/06/2019 This patient underwent image-guided functional endoscopic sinus surgery. To reiterate the surgery was done under image-guided system utilizing the [employer] system. We did registration and an anatomic reference points were followed throughout the entire case and again we relied and referenced the anatomic points through the image- guided system. MMBOBBI / BRIDGETN: [id number] /
[2019-04-06 13:14] VITALS: BP 110/66; PULSE 62
== END 2019-04-06 13:32 | disposition home or self-care (01) ==
LOC: OR 07:52
PROVIDERS: ATTEND Otolaryngology
DX: J32.4 Chronic pansinusitis (principal); J33.8 Other polyp of sinus; H92.11 Otorrhea, right ear; E78.00 Pure hypercholesterolemia, unspecified; I10 Essential (primary) hypertension; I35.2 Nonrheumatic aortic (valve) stenosis with insufficiency; J44.9 Chronic obstructive pulmonary disease, unspecified; Z90.89 Acquired absence of other organs; J30.9 Allergic rhinitis, unspecified; Z79.51 Long term (current) use of inhaled steroids; Z79.2 Long term (current) use of antibiotics; Z79.899 Other long term (current) drug therapy; Z88.6 Allergy status to analgesic agent; Z87.891 Personal history of nicotine dependence; Z88.0 Allergy status to penicillin; Z88.1 Allergy status to other antibiotic agents; Z91.048 Other nonmedicinal substance allergy status; Z85.118 Personal history of other malignant neoplasm of bronchus and lung; Z90.2 Acquired absence of lung [part of]
CPT/HCPCS: 87070; 87205; 87075; 87077; 87186; 31267; 31259; 31253; 61782; C2625 ×3; C1726; J0171; J2250; J1100; J2710; J2405; J0690; J2001; J3010; J2370; J0330; J2704; J1170; 88305

== ENCOUNTER → 2022-04-23 | Outpatient (CLI) | payer MEDICARE, BC ==
--- NOTE | 2022-04-24 10:45 | CT ---
EXAMINATION TYPE: CT chest w con CT DLP: 498.0 mGycm, Automated exposure control for dose reduction was used. DATE OF EXAM: 04/23/2022 6:06 PM COMPARISON: Chest radiograph from 07/24/2020. Multiple CTs of the chest with most recent on 05/23/2017 CLINICAL INDICATION:Male, 81 years old with history of C34.90 lung cancer;, lung cancer x 4 years TECHNIQUE: Multiple axial images were obtained through the chest. Sagittal and coronal reformats were created for review. Contrast used:100 cc mL of Isovue 300 with IV Contrast Oral contrast used: none. FINDINGS: LUNGS/ PLEURA: Postsurgical changes to the left lower lobe. There is scattered prominent reticulation s predominantly in the lower lobes. No evidence for focal consolidation, pneumothorax or pleural effu norman. No new or enlarging pulmonary nodules from 2018. Nodular densities within the lingula in area o f prior atelectasis in 2018 suggests atelectasis/scarring. AIRWAY: Patent and unremarkable. HEART: Heart is mildly enlarged for size, Aortic valve leaflet calcifications are moderate. Mild sonja nary artery calcifications, MEDIASTINUM: No gross evidence of adenopathy. Small hiatal hernia is present. VASCULATURE: No aortic aneurysm. MUSCULOSKELETAL: No acute osseous abnormalities SOFT TISSUES/LYMPH NODES: Gynecomastia changes bilaterally. LOWER NECK: No significant findings. UPPER ABDOMEN: Partially visualized indeterminate left renal cyst measuring 54 Hounsfield units measu ring 31 mm. IMPRESSION: 1. Surgical changes left lower lobe without evidence for recurrence. No evidence for lymphadenopathy . 2. Indeterminate left renal lesion measuring up to 32 mm. Further evaluation MRI or CT renal mass pr otocol is recommended. 3. Scattered interstitial lung thickening predominantly in lung bases could represent sequela prior infection/inflammatory. 4. Small hiatal hernia. 5. Moderate aortic valve leaflet calcifications. 6. Mild coronary artery calcifications
== END | disposition home or self-care (01) ==
LOC: RADCTMAIN 15:14
PROVIDERS: ATTEND Internal Medicine
DX: C34.90 Malignant neoplasm of unspecified part of unspecified bronchus or lung (principal); N28.89 Other specified disorders of kidney and ureter; K44.9 Diaphragmatic hernia without obstruction or gangrene; I25.10 Atherosclerotic heart disease of native coronary artery without angina pectoris
CPT/HCPCS: 82565; 84520; 71260; 36415; Q9967

== ENCOUNTER 2022-07-19 20:58 | Inpatient (IN) | payer MEDICARE, BC ==
[~2022-07-19 20:58] MED LIST changes: -DEXAMETHASONE SOD PHOSPHATE 4 MG/ML 1 ML VIAL IV ONE; -FAMOTIDINE 20 MG/2 ML VIAL IV ONE; -LACTATED RINGERS 1,000 ML IV SCH; -MIDAZOLAM 2 MG/2 ML VIAL IV PRN; -OXYMETAZOLINE 0.05% NASL SPRAY 1 SPRAY BOTTLE NASAL ONE; +SODIUM CHLORIDE 0.9% 250 ML IV ONE
[2022-07-19 21:55] LABS: ALT 59 U/L (4-49); AST 38 U/L (17-59); African American GFR (CKD) 72 (>60 ml/min/1.73 sqM); Albumin 4.5 g/dL (3.5-5.0); Alkaline Phosphatase 80 U/L (38-126); Anion Gap 13 mmol/L; Blood Urea Nitrogen 35 mg/dL (9-20); Carbon Dioxide 22 mmol/L (22-30); Chloride 103 mmol/L (98-107); Glucose 112 mg/dL (74-99); Magnesium 2.8 mg/dL (1.6-2.3); Non-African American GFR(CKD) 62 (>60 ml/min/1.73 sqM); Potassium 5.2 mmol/L (3.5-5.1); Sodium 138 mmol/L (137-145); Total Bilirubin 0.3 mg/dL (0.2-1.3); Total Protein 7.5 g/dL (6.3-8.2)
[2022-07-19] MEDS ORDERED: NALOXONE 0.4 MG/ML 1 ML VIAL IV PRN (22:03)
[2022-07-19 22:04] LABS: INR 0.9 (<1.2); Partial Thromboplastin Time 22.6 sec (22.0-30.0); Prothrombin Time 9.9 sec (9.0-12.0)
--- NOTE | 2022-07-19 22:14 | ED ---
General Adult HPI - General Chief complaint: Arrhythmia/Palpitations Stated complaint: Syncope AFIB Time Seen by Provider: 07/19/22 21:04 Source: patient, EMS Mode of arrival: EMS Limitations: no limitations - History of Present Illness Initial comments: This is an 81-year-old male with a past medical history including hypertension and atrial fibrillation presents emergency department after a syncopal episode via EMS. The patient reported multiple episodes of "tunneling of vision" over last several days and he did state that he had an episode today and he went to get up and had an episode where he passed out. The patient stated that the only thing he remembered was waking up on the floor. The patient denied any palpitations but did state that he had intermittent episodes of lightheadedness as well as dizziness all day today. The patient himself was resting in bed comfortably without any acute distress at this time. EMS did report that the patient did have episodes of V. tach during transport but denied any signs of that on arrival. The patient denied any other acute pain or complaints at this time. - Related Data Home Medications Medication Instructions Recorded Confirmed Enalapril [Vasotec] 5 mg PO DAILY 07/09/13 07/19/22 Furosemide 40 mg PO HS 09/08/15 07/19/22 Multivitamins, Thera [Multivitamin 1 tab PO DAILY 09/08/15 07/19/22 (formulary)] Vit C/E/Zn/Coppr/Lutein/Zeaxan 1 cap PO BID 09/08/15 07/19/22 [Preservision Areds 2 Softgel] Montelukast [Singulair] 10 mg PO HS 11/08/15 07/19/22 oxyCODONE-APAP 10-325MG [Percocet 1 tab PO TID PRN 11/08/15 07/19/22 10-325 mg] Atorvastatin [Lipitor] 20 mg PO HS 01/24/17 07/19/22 Benralizumab [Fasenra] 30 mg SQ Q60D 04/04/19 07/19/22 Albuterol Inhaler [Ventolin Hfa 2 puff INHALATION RT-Q6H PRN 07/19/22 07/19/22 Inhaler] Ascorbic Acid [Vitamin C] 500 mg PO DAILY 07/19/22 07/19/22 Aspirin EC [Ecotrin Low Dose] 81 mg PO DAILY 07/19/22 07/19/22 Cetirizine HCl [Zyrtec] 10 mg PO HS 07/19/22 07/19/22 Cholecalciferol [Vitamin D3 (10 10 mcg PO DAILY 07/19/22 07/19/22 Mcg = 400 Iu)] Vitamin B Complex 1 cap PO DAILY 07/19/22 07/19/22 Zinc Gluconate [Zinc] 50 mg PO DAILY 07/19/22 07/19/22 predniSONE [Deltasone] 10 mg PO DAILY 07/19/22 07/19/22 Previous Rx's Medication Instructions Recorded EPINEPHrine (Auto Inject) [Epipen] 0.3 mg IM ONCE PRN #2 pen 03/31/19 Allergies Allergy/AdvReac Type Severity Reaction Status Date / Time amoxicillin [From Augmentin] Allergy Rash/Hives Verified 07/19/22 21:28 aspirin Allergy does not Verified 07/19/22 21:28 take r/t hx of nasal polyps cefuroxime Allergy pancreatiti Verified 07/19/22 21:28 s clavulanic acid Allergy Rash/Hives Verified 07/19/22 21:28 [From Augmentin] NSAIDS (Non-Steroidal Allergy states was Verified 07/19/22 21:28 Anti-Inflamma told never to take Review of Systems ROS Statement: Those systems with pertinent positive or pertinent negative responses have been documented in the HPI. ROS Other: All systems not noted in ROS Statement are negative. Past Medical History Past Medical History: Asthma, Cancer, COPD, Eye Disorder, GERD/Reflux, Hyperlipidemia, Hypertension, Osteoarthritis (OA), Pneumonia, Prostate Disorder Additional Past Medical History / Comment(s): Macular degeneration of the pal eyes(gets tx with injections),chronic sinus polyps, 2016-right elbow bursitis/cellulitis with sepsis, hx peptic ulcer persistent severe asthma, pseudomonas pneumonia and sepsis/broncheictasis, hx lung cancer, constipation, hx pancreatitis x 2, non cancerous spots on back, recently fininshed steroids for COPD History of Any Multi-Drug Resistant Organisms: None Reported Past Surgical History: Back Surgery, Joint Replacement, Orthopedic Surgery, Prostate Surgery, Tonsillectomy Additional Past Surgical History / Comment(s): 02/2017 bronchoscopy, Low BACK SX, Multiple surgeries for nasal polyps, LEFT KNEE ATRHROSCOPY, left total knee arthroplasty, colonoscopy, benign growth removed from his L thumb, correction of a deviated nasal septum, TURP. left lower lung lobectomy, pal cataracts Past Anesthesia/Blood Transfusion Reactions: No Reported Reaction Past Psychological History: No Psychological Hx Reported Smoking Status: Former smoker Past Alcohol Use History: Rare Past Drug Use History: None Reported - Past Family History Son(s) Family Medical History: Cancer Additional Family Medical History / Comment(s): testicular cancer, mentally challenged General Exam Limitations: no limitations General appearance: alert, in no apparent distress Head exam: Present: atraumatic, normocephalic, normal inspection Eye exam: Present: normal appearance, PERRL Pupils: Present: normal accommodation ENT exam: Present: normal exam, normal oropharynx, mucous membranes moist Neck exam: Present: normal inspection, full ROM Respiratory exam: Present: normal lung sounds bilaterally Cardiovascular Exam: Present: regular rate, normal rhythm, normal heart sounds GI/Abdominal exam: Present: soft, normal bowel sounds Extremities exam: Present: normal inspection, full ROM Back exam: Present: normal inspection, full ROM Neurological exam: Present: alert, oriented X3, CN II-XII intact Psychiatric exam: Present: normal affect, normal mood Skin exam: Present: warm, dry Course Vital Signs 07/19/22 21:06 Temperature 97.1 F L Pulse Rate 78 Respiratory 20 Rate Blood Pressure 158/83 O2 Sat by Pulse 100 Oximetry EKG Findings - EKG Comments: EKG Findings:: An EKG was obtained and was interpreted by myself showing a rate of 80, IN interval 165, QRS duration 142 and QTC of 428. This EKG showed a normal sinus rhythm with a right bundle branch block however denied of any ST segment elevation or depression noted. While the patient was in the ER the patient had multiple episodes of asystole that was captured on rhythm strips. The patient had sustained episodes of approximately 10 seconds of sustained asystole with symptomatic lightheadedness and "tunnel vision." Medical Decision Making - Medical Decision Making Was pt. sent in by a medical professional or institution (, PA, CUSTOMER SERVICE SALES CONSULTANT, urgent care, hospital, or fci...) When possible be specific @ -No Did you speak to anyone other than the patient for history (EMS, parent, family, police, friend...)? What history was obtained from this source @ -Yes, I did speak to the patient's and sister who did state that they saw the patient have these episodes of "tunneling of vision" where the patient's face gets red and he feels that he is going to pass out. Did you review nursing and triage notes (agree or disagree)? Why? @ -I reviewed and agree with nursing and triage notes Were old charts reviewed (outside hosp., previous admission, EMS record, old EKG, old radiological studies, urgent care reports/EKG's, fci records)? Report findings @ -No old charts were reviewed Differential Diagnosis (chest pain, altered mental status, abdominal pain women, abdominal pain men, vaginal bleeding, weakness, fever, dyspnea, syncope, headache, dizziness, GI bleed, back pain, seizure, CVA, palpatations, mental health)? @ -Arrhythmia, ACS, pneumonia, pneumothorax EKG interpreted by me (3pts min.). @ -As above X-rays interpreted by me (1pt min.). @ -A chest x-ray was ordered at this time however was not completed as the patient left the [facility] before being performed. Dr. Patrick was contacted for patient admission. CT interpreted by me (1pt min.). @ -None done U/S interpreted by me (1pt. min.). @ -None done What testing was considered but not performed or refused? (CT, X-rays, U/S, labs)? Why? @ -None What meds were considered but not given or refused? Why? @ -None Did you discuss the management of the patient with other professionals (professionals i.e. , PA, CUSTOMER SERVICE SALES CONSULTANT, lab, RT, psych nurse, social services manager, career consultant, teacher, labor relations officer, briefcase sewer)? Give summary @ -Yes, Dr. Foster was contacted about the patient and the asystole episodes. He did agree to take the patient to the [facility] for pacemaker placement. Was smoking cessation discussed for >3mins.? @ -No Was critical care preformed (if so, how long)? @ -Yes, see above Were there social determinants of health that impacted care today? How? (Homelessness, low income, unemployed, alcoholism, drug addiction, transport ation, low edu. Level, literacy, decrease access to med. care, long term, rehab)? @ -No Was there de-escalation of care discussed even if they declined (Discuss DNR or withdrawal of care, Hospice)? DNR status @ -No What co-morbidities impacted this encounter? (DM, HTN, Smoking, COPD, CAD, Cancer, CVA, ARF, Chemo, Hep., AIDS, mental health diagnosis, sleep apnea, morbid obesity)? @ -Hypertension, atrial fibrillation Was patient admitted / discharged? Hospital course, mention meds given and route, prescriptions, significant lab abnormalities, going to OR and other pertinent info. @ -The patient was seen and evaluated emergency department. Physical exam, the patient was resting in bed without any acute distress. Vital signs admission were initially within normal limits. Laboratory workup was initiated as well as an EKG and chest x-ray. While the patient was being monitored, the patient did have multiple episodes of asystole lasting approximately 10-12 seconds. The patient was symptomatically to remain this time and he stated that he was having "tunneling of vision" just as as he has had over the last several days. Due to these thoughts is, the wrapping machine operator on-call, Dr. Foster was contacted. He did agree to come into the emergency department and take the patient to the cardiac Boat [facility] for pacemaker placement. The patient as well as his and sister were told of this plan and were agreeable. The patient was taken to the cardiac [facility] emergently. The patient's primary care physician was also contacted for admission and he did accept the patient for admission. Undiagnosed new problem with uncertain prognosis? @ -No Drug Therapy requiring intensive monitoring for toxicity (Heparin, Nitro, Insulin, Cardizem)? @ -No Were any procedures done? @ -No Diagnosis/symptom? @ -Syncope, sinus pauses Acute, or Chronic, or Acute on Chronic? @ -Acute Uncomplicated (without systemic symptoms) or Complicated (systemic symptoms)? @ -Complicated Side effects of treatment? @ -No Exacerbation, Progression, or Severe Exacerbation? @ -No Poses a threat to life or bodily function? How? (Chest pain, [place], [place], pneumonia, PE, COPD, DKA, ARF, appy, cholecystitis, CVA, Diverticulitis, Homicidal, Suicidal, threat to staff... and all critical care pts) @ -Yes, continued sinus poses can lead to terminal arrhythmia and possible . - Lab Data Result diagrams: 07/19/22 21:27 07/19/22 21:27 Lab Results 07/19/22 07/19/22 07/19/22 Range/Units 21:27 21:27 21:27 WBC 11.4 H (3.8-10.6) k/uL RBC 4.57 (4.30-5.90) m/uL Hgb 14.2 (13.0-17.5) gm/dL Hct 43.5 (39.0-53.0) % MCV 95.2 (80.0-100.0) fL MCH 31.2 (25.0-35.0) pg MCHC 32.7 (31.0-37.0) g/dL RDW 13.9 (11.5-15.5) % Plt Count 221 (150-450) k/uL MPV 7.9 Neutrophils % 71 % Lymphocytes % 15 % Monocytes % 11 % Eosinophils % 0 % Basophils % 0 % Neutrophils # 8.1 H (1.3-7.7) k/uL Lymphocytes # 1.7 (1.0-4.8) k/uL Monocytes # 1.3 H (0-1.0) k/uL Eosinophils # 0.0 (0-0.7) k/uL Basophils # 0.0 (0-0.2) k/uL PT 9.9 (9.0-12.0) sec INR 0.9 (<1.2) APTT 22.6 (22.0-30.0) sec Sodium 138 (137-145) mmol/L Potassium 5.2 H (3.5-5.1) mmol/L Chloride 103 (98-107) mmol/L Carbon Dioxide 22 (22-30) mmol/L Anion Gap 13 mmol/L BUN 35 H (9-20) mg/dL Creatinine 1.10 (0.66-1.25) mg/dL Est GFR (CKD-EPI)AfAm 72 (>60 ml/min/1.73 sqM) Est GFR (CKD-EPI)NonAf 62 (>60 ml/min/1.73 sqM) Glucose 112 H (74-99) mg/dL Calcium 9.0 (8.4-10.2) mg/dL Magnesium 2.8 H (1.6-2.3) mg/dL Total Bilirubin 0.3 (0.2-1.3) mg/dL AST 38 (17-59) U/L ALT 59 H (4-49) U/L Alkaline Phosphatase 80 (38-126) U/L Troponin I (0.000-0.034) ng/mL Total Protein 7.5 (6.3-8.2) g/dL Albumin 4.5 (3.5-5.0) g/dL 07/19/22 Range/Units 21:27 WBC (3.8-10.6) k/uL RBC (4.30-5.90) m/uL Hgb (13.0-17.5) gm/dL Hct (39.0-53.0) % MCV (80.0-100.0) fL MCH (25.0-35.0) pg MCHC (31.0-37.0) g/dL RDW (11.5-15.5) % Plt Count (150-450) k/uL MPV Neutrophils % % Lymphocytes % % Monocytes % % Eosinophils % % Basophils % % Neutrophils # (1.3-7.7) k/uL Lymphocytes # (1.0-4.8) k/uL Monocytes # (0-1.0) k/uL Eosinophils # (0-0.7) k/uL Basophils # (0-0.2) k/uL PT (9.0-12.0) sec INR (<1.2) APTT (22.0-30.0) sec Sodium (137-145) mmol/L Potassium (3.5-5.1) mmol/L Chloride (98-107) mmol/L Carbon Dioxide (22-30) mmol/L Anion Gap mmol/L BUN (9-20) mg/dL Creatinine (0.66-1.25) mg/dL Est GFR (CKD-EPI)AfAm (>60 ml/min/1.73 sqM) Est GFR (CKD-EPI)NonAf (>60 ml/min/1.73 sqM) Glucose (74-99) mg/dL Calcium (8.4-10.2) mg/dL Magnesium (1.6-2.3) mg/dL Total Bilirubin (0.2-1.3) mg/dL AST (17-59) U/L ALT (4-49) U/L Alkaline Phosphatase (38-126) U/L Troponin I <0.012 (0.000-0.034) ng/mL Total Protein (6.3-8.2) g/dL Albumin (3.5-5.0) g/dL Critical Care Time Critical Care Time: Yes Total Critical Care Time: 42 Disposition Clinical Impression: Sinus pause, Syncope Disposition: ADMITTED IP TO THIS [facility] Condition: Stable Is patient prescribed a controlled substance at d/c from ED?: No Referrals: Darrel Patrick MD [Primary Care Provider] - 1-2 days Time of Disposition: 21:30 Decision to Admit Reason: Admit from EC Decision Date: 07/19/22 Decision Time: 21:30
[2022-07-19] MEDS ORDERED: LIDOCAINE 1% INJ 10MG/ML (20 ML MDV) ONE (22:33)
[2022-07-19] MEDS ORDERED: fentaNYL (PF) 50 MCG/ML 2 ML AMP ONE (22:33)
--- NOTE | 2022-07-19 22:34 | P.CRDCN ---
History of Present Illness Consult date: 07/19/22 History of present illness: History of Present Illness: The patient is an 81-year-old male with a known history of hypertension, hyperlipidemia who presented with syncopal episode. He was sitting at home when he felt dizzy, presyncopal and then when he stood up he had a full syncopal episode. He had no tonic-clonic seizure or loss of bladder control. He presented to the emergency room and while in the emergency room had episode of sinus arrest up to 10 seconds associated with presyncope. The patient is active physically, has no prior history of dizziness or arrhythmia. He has no history of anginal pain or CHF. He denies any PND, orthopnea or peripheral edema. He had no chest discomfort. He is on no chronotropic drugs. He is a nonsmoker nondiabetic. Medications: Enalapril 5 mg daily, furosemide 40 mg daily, Lipitor 20 mg daily, aspirin once a day, Zyrtec, multivitamins Review of Systems: Respiratory: No history of asthma, bronchitis or recent cough. GI: No nausea or vomiting . No history of peptic ulcer disease. No recent GI bleed. : No hematuria or dysuria. Nervous System: No stroke or seizure. Physical Examination: 81-year-old male, alert and oriented no apparent distress ,Blood pressure 130/70, Heart rate 70 Head: Normocephalic. Eyes: Sclerae nonicteric. Neck: Good carotid upstroke, no bruit, no jugular venous distention. Lungs: Clear to auscultation. Heart: Regular rate and rhythm, S1-S2, no S3, no rub. Systolic ejection murmur. Abdomen: Soft nontender, positive bowel sounds no organomegaly. Extremities: No edema, intact distal pulses. Labs: Potassium 5.2, BUN 35, creatinine 1.1. Magnesium 2.8. Troponin less than 0.012. EKG: EKG sinus mechanism rate of 80 right bundle branch block Impression: 1. Sinus arrest with associated syncope. Patient has no evidence to suggest acute ischemia and he is on no chronotropic negative drugs 2. History of hypertension 3. History of hyperlipidemia 4. History of arthritis Plan: 1. Proceed with temporary pacemaker, the rationale as well as the risks and the complication were discussed with the patient 2. Obtain an echocardiogram with Doppler 3. Most likely the patient will require permanent pacemaker implantation that would be done tomorrow 4. Depending on his progress further recommendations will be made 5. Thank you for this consult we will follow with you Past Medical History Past Medical History: Asthma, Cancer, COPD, Eye Disorder, GERD/Reflux, Hyperlipidemia, Hypertension, Osteoarthritis (OA), Pneumonia, Prostate Disorder Additional Past Medical History / Comment(s): Macular degeneration of the pal eyes(gets tx with injections),chronic sinus polyps, 2016-right elbow bursitis/cellulitis with sepsis, hx peptic ulcer persistent severe asthma, pseudomonas pneumonia and sepsis/broncheictasis, hx lung cancer, constipation, hx pancreatitis x 2, non cancerous spots on back, recently fininshed steroids for COPD History of Any Multi-Drug Resistant Organisms: None Reported Past Surgical History: Back Surgery, Joint Replacement, Orthopedic Surgery, Prostate Surgery, Tonsillectomy Additional Past Surgical History / Comment(s): 02/2017 bronchoscopy, Low BACK SX, Multiple surgeries for nasal polyps, LEFT KNEE ATRHROSCOPY, left total knee arthroplasty, colonoscopy, benign growth removed from his L thumb, correction of a deviated nasal septum, TURP. left lower lung lobectomy, pal cataracts Past Anesthesia/Blood Transfusion Reactions: No Reported Reaction Past Psychological History: No Psychological Hx Reported Smoking Status: Former smoker Past Alcohol Use History: Rare Past Drug Use History: None Reported - Past Family History Son(s) Family Medical History: Cancer Additional Family Medical History / Comment(s): testicular cancer, mentally challenged Medications and Allergies Home Medications Medication Instructions Recorded Confirmed Type Enalapril [Vasotec] 5 mg PO DAILY 07/09/13 07/19/22 History Furosemide 40 mg PO HS 09/08/15 07/19/22 History Multivitamins, Thera [Multivitamin 1 tab PO DAILY 09/08/15 07/19/22 History (formulary)] Vit C/E/Zn/Coppr/Lutein/Zeaxan 1 cap PO BID 09/08/15 07/19/22 History [Preservision Areds 2 Softgel] Montelukast [Singulair] 10 mg PO HS 11/08/15 07/19/22 History oxyCODONE-APAP 10-325MG [Percocet 1 tab PO TID PRN 11/08/15 07/19/22 History 10-325 mg] Atorvastatin [Lipitor] 20 mg PO HS 01/24/17 07/19/22 History EPINEPHrine (Auto Inject) [Epipen] 0.3 mg IM ONCE PRN #2 pen 03/31/19 07/19/22 Rx Benralizumab [Fasenra] 30 mg SQ Q60D 04/04/19 07/19/22 History Albuterol Inhaler [Ventolin Hfa 2 puff INHALATION RT-Q6H PRN 07/19/22 07/19/22 History Inhaler] Ascorbic Acid [Vitamin C] 500 mg PO DAILY 07/19/22 07/19/22 History Aspirin EC [Ecotrin Low Dose] 81 mg PO DAILY 07/19/22 07/19/22 History Cetirizine HCl [Zyrtec] 10 mg PO HS 07/19/22 07/19/22 History Cholecalciferol [Vitamin D3 (10 10 mcg PO DAILY 07/19/22 07/19/22 History Mcg = 400 Iu)] Vitamin B Complex 1 cap PO DAILY 07/19/22 07/19/22 History Zinc Gluconate [Zinc] 50 mg PO DAILY 07/19/22 07/19/22 History predniSONE [Deltasone] 10 mg PO DAILY 07/19/22 07/19/22 History Allergies Allergy/AdvReac Type Severity Reaction Status Date / Time amoxicillin [From Augmentin] Allergy Rash/Hives Verified 07/19/22 21:28 aspirin Allergy does not Verified 07/19/22 21:28 take r/t hx of nasal polyps cefuroxime Allergy pancreatiti Verified 07/19/22 21:28 s clavulanic acid Allergy Rash/Hives Verified 07/19/22 21:28 [From Augmentin] NSAIDS (Non-Steroidal Allergy states was Verified 07/19/22 21:28 Anti-Inflamma told never to take Physical Exam Vitals: Vital Signs Temp Pulse Resp BP Pulse Ox 07/19/22 21:06 97.1 F L 78 20 158/83 100 Intake and Output 07/19/22 07/19/22 07/19/22 06:59 14:59 22:59 Other: Weight 80.286 kg Results 07/19/22 21:27 Cardiac Enzymes 07/19/22 07/19/22 Range/Units 21:27 21:27 AST 38 (17-59) U/L Troponin I <0.012 (0.000-0.034) ng/mL Coagulation 07/19/22 Range/Units 21:27 PT 9.9 (9.0-12.0) sec APTT 22.6 (22.0-30.0) sec Comprehensive Metabolic Panel 07/19/22 Range/Units 21:27 Sodium 138 (137-145) mmol/L Potassium 5.2 H (3.5-5.1) mmol/L Chloride 103 (98-107) mmol/L Carbon Dioxide 22 (22-30) mmol/L BUN 35 H (9-20) mg/dL Creatinine 1.10 (0.66-1.25) mg/dL Glucose 112 H (74-99) mg/dL Calcium 9.0 (8.4-10.2) mg/dL AST 38 (17-59) U/L ALT 59 H (4-49) U/L Alkaline Phosphatase 80 (38-126) U/L Total Protein 7.5 (6.3-8.2) g/dL Albumin 4.5 (3.5-5.0) g/dL Current Medications Generic Name Dose Route Start Last Admin Trade Name Freq PRN Reason Stop Dose Admin Naloxone HCl 0.2 mg 07/19/22 22:03 Naloxone 0.4 Mg/Ml 1 Ml Vial IV Q2M PRN Opioid Reversal Intake and Output 07/19/22 07/19/22 07/19/22 06:59 14:59 22:59 Other: Weight 80.286 kg Patient Weight 07/20/22 06:59 Weight 80.286 kg 07/19/22 21:27
[2022-07-19 22:39] LABS: Basophils % (A) 0 %; Eosinophils % (A) 0 %; HCT 43.5 % (39.0-53.0); HGB 14.2 gm/dL (13.0-17.5); Lymphocytes # (A) 1.7 k/uL (1.0-4.8); Lymphocytes % (A) 15 %; MCH 31.2 pg (25.0-35.0); MCHC 32.7 g/dL (31.0-37.0); MCV 95.2 fL (80.0-100.0); Mean Platelet Volume 7.9; Monocytes # (A) 1.3 k/uL (0-1.0); Monocytes % (A) 11 %; Neutrophils # (A) 8.1 k/uL (1.3-7.7); Neutrophils % (A) 71 %; Platelet Count 221 k/uL (150-450); RBC 4.57 m/uL (4.30-5.90); RDW 13.9 % (11.5-15.5); WBC 11.4 k/uL (3.8-10.6)
[2022-07-19] MEDS ORDERED: fentaNYL (PF) 50 MCG/ML 2 ML AMP IVP ONE (22:43)
[2022-07-19] MEDS ORDERED: LIDOCAINE 1% INJ 10MG/ML (30 ML VIAL-PF) SQ ONE (22:46)
[2022-07-19] MEDS ORDERED: RX INFO: IV CONTRAST WAS GIVEN 1 EACH MISC MISCELLANE PRN (23:01)
--- NOTE | 2022-07-19 23:07 | P.PCN ---
Date of Procedure: 07/19/22 Description of Procedure: Temporary pacemaker Indications: Sinus arrest with syncope Procedure: He received 50 g of IV fentanyl sedation. After explaining the procedure to the patient as well as the risks and the complications using micropuncture needle a 6-[place] sheath was introduced in the right femoral vein, subsequently a balloontipped pacemaker was advanced to the right ventricle, positioned in place. Pacing parameters were obtained. The pacemaker was at a backup rate of 60 bpm. The pacemaker was secured in place. There is no immediate complications. The patient will be evaluated in the morning for the need to undergo permanent pacemaker implantation. The procedure and the results were discussed with the patient and his family. Duration of sedation: 11 minutes.
[2022-07-19 23:19] LABS: Glucose,Whole Blood 127 mg/dL (70-110)
[2022-07-19] MEDS: SODIUM CHLORIDE 0.9% 1,000 ML IV SCH (23:42)
[2022-07-20 01:14] LABS: African American GFR (CKD) 88 (>60 ml/min/1.73 sqM); Anion Gap 7 mmol/L; Blood Urea Nitrogen 33 mg/dL (9-20); Calcium 8.2 mg/dL (8.4-10.2); Carbon Dioxide 24 mmol/L (22-30); Chloride 105 mmol/L (98-107); Glucose 104 mg/dL (74-99); Non-African American GFR(CKD) 76 (>60 ml/min/1.73 sqM); Potassium 4.8 mmol/L (3.5-5.1); Sodium 136 mmol/L (137-145)
[2022-07-20] MEDS: oxyCODONE-APAP 10-325MG 1 EACH TAB PO PRN ×3 (01:47→20:10)
[2022-07-20 02:11] LABS: T4, Free (Free Thyroxine) 0.94 ng/dL (0.78-2.19)
[2022-07-20 04:03] LABS: Basophils % (A) 0 %; Eosinophils % (A) 0 %; HCT 38.4 % (39.0-53.0); HGB 12.4 gm/dL (13.0-17.5); Lymphocytes # (A) 1.1 k/uL (1.0-4.8); Lymphocytes % (A) 10 %; MCH 31.3 pg (25.0-35.0); MCHC 32.3 g/dL (31.0-37.0); MCV 96.9 fL (80.0-100.0); Mean Platelet Volume 8.4; Monocytes % (A) 9 %; Neutrophils # (A) 8.3 k/uL (1.3-7.7); Neutrophils % (A) 78 %; Platelet Count 211 k/uL (150-450); RBC 3.97 m/uL (4.30-5.90); RDW 13.9 % (11.5-15.5); WBC 10.6 k/uL (3.8-10.6)
[2022-07-20] MEDS ORDERED: CLINDAMYCIN 600 MG in SODIUM CHLORIDE 0.9% 250 ML IRRIGATION PRN (07:00)
[2022-07-20] MEDS ORDERED: CLINDAMYCIN 900 MG in DEXTROSE 5% IN WATER 50 ML IVPB PRN ×2 (07:00)
[2022-07-20] MEDS ORDERED: SODIUM CHLORIDE 0.9% 1,000 ML IV SCH ×2 (09:00)
[2022-07-20] MEDS ORDERED: ASPIRIN 81 MG PO SCH (09:00)
--- NOTE | 2022-07-20 09:29 | XR ---
EXAMINATION TYPE: XR chest 1V portable DATE OF EXAM: 07/20/2022 9:21 AM COMPARISON: Chest radiographs from 03/31/2019, CT chest 04/23/2022. TECHNIQUE: XR chest 1V portable Portable AP radiograph of the chest. CLINICAL INDICATION:Male, 81 years old with history of asthma; FINDINGS: Lungs/Pleura: There is no evidence of pleural effusion, focal consolidation, or pneumothorax. Left b asilar scarring with left lung volume loss and postsurgical change. Pulmonary vascularity: Unremarkable. Heart/mediastinum: Cardiomediastinal silhouette is prominent in size. Musculoskeletal: No acute osseous pathology. IMPRESSION: Chronic changes without evidence for acute process.
--- NOTE | 2022-07-20 09:50 | PN ---
PROGRESS NOTE SUBJECTIVE: Mr. Montanez presented yesterday with syncope to the hospital. He had asystole with long pauses. He also had a temporary pacemaker by Dr. Alatorre last night. He has used the pacemaker today. He has P-waves without any QRS complexes. There is evidence of sinus arrest and also he has underlying right bundle branch block pattern. I am advising a permanent pacemaker, which was also advised by Dr. Alatorre, who called me this morning. The patient's echo revealed preserved ejection fraction with moderate aortic stenosis. I spoke to the patient, explained to him the rationale, risks, benefits, and options. Risks include pneumothorax, cardiac puncture, perforation, vascular injury, infection, bleeding. He understands all details and wishes to proceed with the procedure. I also spoke to his son, Herson by telephone and explained the rationale for pacemaker. I answered all their questions, both of them agree and wished to proceed with the procedure that will be performed at 12 noon today. OBJECTIVE: VITAL SIGNS: Blood pressure today is 140/70, pulse rate is 64, right bundle. NECK: JVD 1 cm. No carotid bruit. CARDIOVASCULAR: S1, S2 with ejection systolic murmur at the base. LUNGS: Revealed decent air entry. ABDOMEN: Soft. EXTREMITIES: Lower extremities reveal diminished pulses. CENTRAL NERVOUS SYSTEM: Grossly within normal limits. PLAN: He will have a pacemaker at 12 noon today, dual chamber. MMODL / IJN: [id number] /
[2022-07-20] MEDS ORDERED: SODIUM CHLORIDE 0.9% 500 ML 500 ML IV ONE (11:00)
[2022-07-20] MEDS ORDERED: MIDAZOLAM 2 MG/2 ML VIAL IVP ONE (11:30)
[2022-07-20] MEDS: LIDOCAINE 1% INJ 10MG/ML (30 ML VIAL-PF) SQ ONE ×2 (11:39→11:51)
--- NOTE | 2022-07-20 12:28 | CA ---
Transthoracic Echo Report Name: Pasquale Montanez Age: 81 Gender: M : 1940 Exam Date: 07/20/2022 08:21 Exam Location: [facility] Ht (in): 65 Wt (lb): 183 Ordering Physician: Chepe Foster MD ([id number]) Attending/Referring Phys: Weigh Boss Catherine Abrams RDCS Procedure CPT: Indications: HTN Cardiac Hx: Technical Quality: Fair Contrast 1: Total Dose (mL): Contrast 2: Total Dose (mL): MEASUREMENTS (Male / Female) Normal Values 2D ECHO LV Diastolic Diameter PLAX 4.6 cm 4.2 - 5.9 / 3.9 - 5.3 cm LV Systolic Diameter PLAX 3.1 cm IVS Diastolic Thickness 1.1 cm 0.6 - 1.0 / 0.6 - 0.9 cm LVPW Diastolic Thickness 1.3 cm 0.6 - 1.0 / 0.6 - 0.9 cm LV Relative Wall Thickness 0.5 RV Internal Dim ED PLAX 4.0 cm LVOT Diameter 2.2 cm LA Volume 56.0 cm??? 18 - 58 / 22 - 52 cm??? M-MODE Aortic Root Diameter MM 4.1 cm LA Systolic Diameter MM 4.0 cm LA Ao Ratio MM 1.0 AV Cusp Separation MM 0.9 cm DOPPLER AV Peak Velocity 318.8 cm/s AV Peak Gradient 40.6 mmHg AV Mean Velocity 179.2 cm/s AV Mean Gradient 16.9 mmHg AV Velocity Time Integral 61.2 cm AI Peak Velocity 328.5 cm/s AI Peak Gradient 43.2 mmHg AI Pressure Half Time 508.3 ms LVOT Peak Velocity 99.5 cm/s LVOT Peak Gradient 4.0 mmHg LVOT Velocity Time Integral 21.5 cm LVOT Stroke Volume 80.4 cm??? LVOT Stroke Volume Index 42.2 ml/m??? LVOT Cardiac Index 2234.7 cm???/min???m??? AV Area Cont Eq vti 1.3 cm??? AV Area Cont Eq pk 1.2 cm??? MV Area PHT 2.9 cm??? Mitral E Point Velocity 86.5 cm/s Mitral A Point Velocity 125.6 cm/s Mitral E to A Ratio 0.7 MV Deceleration Time 264.3 ms MV E' Velocity 5.2 cm/s Mitral E to MV E' Ratio 16.6 TR Peak Velocity 204.3 cm/s TR Peak Gradient 16.7 mmHg Right Ventricular Systolic Press 21.7 mmHg FINDINGS Left Ventricle Mildly increased left ventricular wall thickness. Left ventricular cavity size normal. Preserved Systolic function. Left ventricular ejection fraction is estimated at 55 to 60% %. Right Ventricle Moderate right ventricular dilatation. Right ventricular systolic pressure within normal limits. Right Atrium Normal right atrial size. Left Atrium Normal left atrial size. Mitral Valve Structurally normal mitral valve. Mitral valve thickened. Mild mitral annular calcification. Mild mitral regurgitation. Aortic Valve Trileaflet aortic valve. Potv-wk-aacjmirq aortic stenosis with a peak gradient of 41 mmHg and a mean gradient of 17 mmHg. mild aortic regurgitation. Tricuspid Valve Structurally normal tricuspid valve. Mild tricuspid regurgitation. Pulmonic Valve Trace pulmonic regurgitation. Pericardium No pericardial effusion. Echo free space anterior to the right ventricle likely represents a fat pad. Aorta Normal size aortic root and proximal ascending aorta. CONCLUSIONS 1. Normal left ventricle size and systolic function 2. Mild to moderate aortic stenosis with mean gradient of 17 mmHg 3. Mild mitral, aortic and tricuspid regurgitation Previewed by: Dr. Chepe Foster MD (Electronically Signed) Final Date: 20 July 2022 12:27
[2022-07-20] MEDS ORDERED: HYDROmorphone 0.5 MG/0.5 ML SYRINGE IVP ONE ×2 (12:44→13:31)
[2022-07-20] MEDS ORDERED: ACETAMINOPHEN TAB 325 MG TAB PO PRN (14:12)
[2022-07-20 14:46] LABS: Glucose,Whole Blood 107 mg/dL (70-110)
--- NOTE | 2022-07-20 15:31 | XR ---
EXAMINATION TYPE: XR chest 1V portable DATE OF EXAM: 07/20/2022 3:16 PM COMPARISON: Chest radiographs from 07/20/2021 TECHNIQUE: XR chest 1V portable Portable AP radiograph of the chest. CLINICAL INDICATION:Male, 81 years old with history of Lead placement check; FINDINGS: Patient is rotated which limits evaluation. Lungs/Pleura: There is no evidence of pleural effusion, focal consolidation, or pneumothorax. Left b patria scarring and/or atelectasis. Pulmonary vascularity: Unremarkable. Heart/mediastinum: Cardiomediastinal silhouette is enlarged and stable. Two lead cardiac conduction d evice overlying the left hemithorax with lead tips projecting over the right ventricle and right atri um. Musculoskeletal: No acute osseous pathology. IMPRESSION: Interval placement of two lead cardiac conduction device overlying the left hemithorax with lead tips projecting over the right ventricle and right atrium.
[2022-07-20] MEDS: CLINDAMYCIN 600 MG in DEXTROSE 5% IN WATER 50 ML IVPB SCH ×4 (17:52→23:44)
[2022-07-20] MEDS: SODIUM CHLORIDE 0.9% 1,000 ML IV SCH (17:55)
--- NOTE | 2022-07-20 18:53 | CE ---
CARDIAC ELECTROPHYSIOLOGY REPORT PACEMAKER PROCEDURE NOTE DATE OF SERVICE: 07/20/2022. PROCEDURE PERFORMED: Dual-chamber permanent pacemaker from left infraclavicular approach. PERFORMED BY: Dr. Patricia Monsivais. ANESTHESIA: Moderate conscious sedation time was 146 minutes. The patient was administered Versed and Dilaudid. Oxygen saturation, hemodynamics, and EKG were monitored closely. CLINICAL INFORMATION: Mr. Pasquale Montanez is an 81-year-old gentleman with a history of lung cancer, previous left lower lobectomy. He also has a history of hypertension and hyperlipidemia. He came into the hospital with episode of syncope, had a 10-second pause suggesting sinus arrest, and also had an underlying right bundle with third-degree heart block as well while he was monitored. He had a temporary pacemaker by Dr. Foster last night. He was brought in for a permanent pacemaker after due discussion with the patient as well as his son, Mak. PROCEDURE NOTE: Under strict aseptic precautions and local anesthesia, using a micropuncture needle technique, access was obtained into the axillary vein under fluoroscopic guidance on the left infraclavicular approach. Subsequently, a linear incision was made of about 3 inches medial and parallel to the left deltopectoral groove. The patient had a lot of oozing, and it required quite a bit of time to stop the oozing. A pocket was made in the subfascial plane. Subsequently, another access was obtained with a micropuncture needle technique under fluoroscopic guidance into the axillary vein. A 7-Filipino sheath was introduced over the guidewire, and the right ventricular lead was positioned in the right ventricular apex. I had a lot of difficulty getting a good position. Eventually, decent positions were obtained. Subsequently, over the other guidewire, another 7-Filipino introducer was placed, and the atrial lead was positioned also. I had considerable difficulty getting a good position. A lot of effort and time were taken. Eventually, decent acceptable positions were obtained with good threshold, sensitivities, and impedance. The pocket was irrigated with antibiotic solution. The position of the leads was again checked, as well as the pulse generator. The leads were connected to the pulse generator. Before the leads were connected to the pulse generator, the lead position was checked in NICARAGUAN and KEVIN projections. Also, 10 V pacing was performed with both the atrial and ventricular leads. The pocket was closed in 2 layers. First one was 2-0 Vicryl, and second one was 3-0 Vicryl. I had difficulty getting good hemostasis. I used a D-Stat to secure a better hemostasis. Good apposition was achieved, and the wound was dry at the end of the procedure. The details were discussed with the patient, and I will also speak to his son, Mak. It took much longer than usual time to do this procedure because of difficulty in getting a good lead position and also because of some oozing from the pocket. However, overall, procedure was completed uneventfully. The patient will have a chest x-ray today and another chest x-ray along with a device check tomorrow prior to possible discharge. PACEMAKER DETAILS: PULSE GENERATOR: 1. Cat Dog Or Other Pet Groomer: Fluid Stone. 2. Model: [id number]. 3. Serial number: [id number]. 4. Location: Left pectoral area. ATRIAL LEAD: 1. Model number: 5076-52. 2. Serial number: [id number]. 3. Location: Right atrial appendage. RIGHT VENTRICULAR LEAD: 1. Model number: 5076-58. 2. Serial number: [id number]. 3. Location: Right ventricular apex. The right atrial threshold was 0.5 V at 0.4 milliseconds. The pacing impedance was 646 ohms. P waves were between 1.5 and 2.1. The ventricular lead threshold was 0.75 at 0.4 milliseconds. Pacing impedance was 874 ohms. The R waves were about 5.6. The pacemaker was set at a mode of DDD with a low rate of 50, high rate of 120, pacing delay of 300 milliseconds, and sensing delay of 300 milliseconds. The patient tolerated the procedure well without complications. A chest x-ray will be performed today. A repeat two-view chest x-ray and a device check in the morning. MMODL / IJN: [id number] /
[2022-07-20] MEDS: HEPARIN SODIUM,PORCINE/PF 5,000 UNIT/0.5 ML SYRINGE SQ SCH (20:11)
[2022-07-20] MEDS ORDERED: MONTELUKAST 10 MG TAB PO SCH (21:00)
[2022-07-20] MEDS ORDERED: ATORVASTATIN 20 MG TAB PO SCH (21:00)
[2022-07-21] MEDS: CLINDAMYCIN 600 MG in DEXTROSE 5% IN WATER 50 ML IVPB SCH ×2 (05:57)
[2022-07-21] MEDS ORDERED: LEVOTHYROXINE 25 MCG TAB PO SCH (06:30)
[2022-07-21] MEDS: oxyCODONE-APAP 10-325MG 1 EACH TAB PO PRN (06:55)
[2022-07-21] MEDS: HEPARIN SODIUM,PORCINE/PF 5,000 UNIT/0.5 ML SYRINGE SQ SCH (09:18)
--- NOTE | 2022-07-21 09:41 | XR ---
EXAMINATION TYPE: XR chest 2V DATE OF EXAM: 07/21/2022 COMPARISON: 07/20/2022 INDICATION: Pacemaker follow-up TECHNIQUE: Frontal and lateral views of the chest are obtained. FINDINGS: The heart size is normal. The pulmonary vasculature is normal. Mild infiltrate may be at the left base. Correlate for atelectasis.. Pacemaker overlies left chest. 2 leads are atypical orientation. No pneumothorax is evident. IMPRESSION: 1. Suggestion of mild subsegmental atelectasis left base. 2. Left-sided pacemaker appears stable in position.
[2022-07-21 09:57] VITALS: BP 96/56; PULSE 66; RESP 14
--- NOTE | 2022-07-21 10:03 | P.HPIM ---
History of Present Illness H&P Date: 07/20/22 Chief Complaint: sinus arrest greater than 10 seconds/recurrent syncope HISTORY OF PRESENT ILLNESS: This is an 81-year-old male one of my patient with a previous medical history significant for hypertension and hypertensive cardio vascular disease, hyperlipidemia, moderate persistent asthma, enlarged prostate, malignant neoplasm of the lung, patient was in his usual state of health until about Tuesday when he woke up in the morning and he was feeling a bit dizzy and he was feeling extremely fatigued and tired at that time he did not do anything but he ended up sleeping most of the day, he woke up at 5:00 in the afternoon and he had something to eat, and all of a sudden he became quite dizzy and diaphoretic, he had contacted his niece who is a nurse practitioner who came down to check on him and she asked him to possibly go to the ER for evaluation, patient did have some issues with his left shoulder on and off. For which she underwent the intra-articular steroid injection through [facility] about a week ago, patient tried to stand up to go to the bathroom and tried to change his night clothes and suddenly he passed out he was out for about 5 minutes 911 was called and the patient was brought into the ER at [facility] while his admission. He did have sinus arrest and he passed out multiple times, patient was placed on transcutaneous pacer and the cardi she consultation was obtained, he was taken to the clinical laboratory science professor underwent temporary transvenous pacemaker placement and he was admitted to the ICU, and the later today he ended up going for a permanent pacemaker placement that was done by Dr. JEREMY Monsivais. REVIEW OF SYSTEMS: Constitutional: No documented fever, no chills, no night sweats. No weight change. positive for weakness, fatigue or lethargy. No daytime sleepiness. EENT: No headache. No blurred vision or double vision, no loss of vision. No loss of Hearing, no ringing in the ears, no dizziness. No nasal drainage or congestion. No epistaxis. No sore throat. Lungs: No shortness of breath, no cough, no sputum production. No wheezing. Reports dyspnea with activity. Cardiovascular: No chest pain, no lower extremity edema. No palpitations. No paroxysmal nocturnal dyspnea. No orthopnea. No lightheadedness or dizziness. No syncopal episodes. Abdominal: Reports abdominal pain. No nausea, vomiting. No diarrhea. No constipation. No bloody or tarry stools reports loss of appetite. Genitourinary: No dysuria, increased frequency, urgency. No urinary retention. Musculoskeletal: No myalgias. No muscle weakness, no gait dysfunction, no frequent falls. No back pain. No neck pain. Integumentary: No wounds, no lesions. No rash or pruritus. No unusual bruising. No change in hair or nails. Neurologic: No aphasia. No facial droop. No change in mentation. No head injury. No headache. No paralysis. No paresthesia.positive for syncope Psychiatric: No depression. No anxiety. No mood swings. Endocrine: No abnormal blood sugars. No weight change. PAST MEDICAL HISTORY: Hypertension and hypertensive cardiovascular disease. Hyperlipidemia. Osteoarthritis. Moderate persistent asthma. Enlarged prostate. Malignant neoplasm of the left bronchus PAST SURGICAL HISTORY: Left lobectomy of the lung back in 09/06/2017 Back surgery 03/01/2016 Prostate surgery 2011 Left total knee arthroplasty December 2010 SOCIAL HISTORY: She used to smoke about pack every day smoked for many years and he quit more than 20 years ago, he drinks occasionally, he denies any drug use or abuse, he lives with his . FAMILY HISTORY: Father at age of 77 from emphysema, mother at age of 94 from CAD, patient had 3 brothers one at age 85 from CVA, patient has one sister 75-year-old with hypertension and the hyperlipidemia, patient has 2 sons 1 a survivor of testicle cancer and the other one is developmentally disabled PHYSICAL EXAMINATION: General: 81-year-old male laying down in bed in no distress, except for left shoulder pain. HEENT: Head is atraumatic, normocephalic, pupils were equal round reactive to light and recommendation, extraocular muscle movement were intact, sclera nonicteric, conjunctivae were pale, mucous membranes of the mouth are somewhat dry. Neck: Supple, no JVP, normal carotid upstroke bilaterally, no lymphadenopathy. Chest: Decreased breath sounds at the bases, few rhonchi, no expiratory wheezes, no chest wall tenderness, no intercostal retractions. Heart: First heart sound is normal, second heart sound is normal there is systolic ejection murmur 2/6 systolic in the left sternal border, irregularly irregular, permanent pacemaker located in left upper precordium. Abdomen: Soft, nontender, nondistended, positive bowel sounds. Extremities: There is no edema no calf tenderness DP +2 bilaterally. Neurologic examination: Patient is awake alert and oriented x3, cranial nerves II-12 appear grossly intact, muscle power were 5 out of 5 in upper extremities and 5 out of 5 in bilateral lower extremities, deep tendon reflexes normal bilaterally. ASSESSMENT AND PLAN: 1. Sinus arrest with recurrent syncopal episode. Post permanent pacemaker placement. Monitor the patient in the ICU for the next 24 hours, repeat chest x-ray tomorrow morning, repeat labs tomorrow morning, if symptoms are stable patient can be discharged home in the next 24 hours. 2. Hypertension and hypertensive cardiovascular disease. Continue patient on enalapril 5 minute gram once every day, monitor the patient very closely. 3. Hyperlipidemia, continue atorvastatin 20 mg once every day, monitor the patient panel, keep LDL 55-70. 4. Chronic obstructive pulmonary disease/moderate persistent asthma. Continue to monitor the patient very closely. 5. Enlarged prostate. Monitor for urinary retention. 6. Mitral regurgitation. Echocardiogram is up-to-date. 7. Admit to inpatient. Estimate a length of stay 2 midnights. 8. Full code. Past Medical History Past Medical History: Asthma, Cancer, COPD, Eye Disorder, GERD/Reflux, Hyperlipidemia, Hypertension, Osteoarthritis (OA), Pneumonia, Prostate Disorder Additional Past Medical History / Comment(s): Macular degeneration of the pal eyes(gets tx with injections),chronic sinus polyps, 2016-right elbow bursitis/cellulitis with sepsis, hx peptic ulcer persistent severe asthma, pseudomonas pneumonia and sepsis/broncheictasis, hx lung cancer, constipation, hx pancreatitis x 2, non cancerous spots on back, recently fininshed steroids for COPD History of Any Multi-Drug Resistant Organisms: None Reported Past Surgical History: Back Surgery, Joint Replacement, Orthopedic Surgery, Prostate Surgery, Tonsillectomy Additional Past Surgical History / Comment(s): 02/2017 bronchoscopy, Low BACK SX, Multiple surgeries for nasal polyps, LEFT KNEE ATRHROSCOPY, left total knee arthroplasty, colonoscopy, benign growth removed from his L thumb, correction of a deviated nasal septum, TURP. left lower lung lobectomy, pal cataracts Past Anesthesia/Blood Transfusion Reactions: No Reported Reaction Past Psychological History: No Psychological Hx Reported Smoking Status: Former smoker Past Alcohol Use History: Rare Past Drug Use History: None Reported - Past Family History Son(s) Family Medical History: Cancer Additional Family Medical History / Comment(s): testicular cancer, mentally challenged Medications and Allergies Home Medications Medication Instructions Recorded Confirmed Type Enalapril [Vasotec] 5 mg PO DAILY 07/09/13 07/19/22 History Furosemide 40 mg PO HS 09/08/15 07/19/22 History Multivitamins, Thera [Multivitamin 1 tab PO DAILY 09/08/15 07/19/22 History (formulary)] Vit C/E/Zn/Coppr/Lutein/Zeaxan 1 cap PO BID 09/08/15 07/19/22 History [Preservision Areds 2 Softgel] Montelukast [Singulair] 10 mg PO HS 11/08/15 07/19/22 History oxyCODONE-APAP 10-325MG [Percocet 1 tab PO TID PRN 11/08/15 07/19/22 History 10-325 mg] Atorvastatin [Lipitor] 20 mg PO HS 01/24/17 07/19/22 History EPINEPHrine (Auto Inject) [Epipen] 0.3 mg IM ONCE PRN #2 pen 03/31/19 07/19/22 Rx Benralizumab [Fasenra] 30 mg SQ Q60D 04/04/19 07/19/22 History Albuterol Inhaler [Ventolin Hfa 2 puff INHALATION RT-Q6H PRN 07/19/22 07/19/22 History Inhaler] Ascorbic Acid [Vitamin C] 500 mg PO DAILY 07/19/22 07/19/22 History Aspirin EC [Ecotrin Low Dose] 81 mg PO DAILY 07/19/22 07/19/22 History Cetirizine HCl [Zyrtec] 10 mg PO HS 07/19/22 07/19/22 History Cholecalciferol [Vitamin D3 (10 10 mcg PO DAILY 07/19/22 07/19/22 History Mcg = 400 Iu)] Vitamin B Complex 1 cap PO DAILY 07/19/22 07/19/22 History Zinc Gluconate [Zinc] 50 mg PO DAILY 07/19/22 07/19/22 History predniSONE [Deltasone] 10 mg PO DAILY 07/19/22 07/19/22 History Allergies Allergy/AdvReac Type Severity Reaction Status Date / Time amoxicillin [From Augmentin] Allergy Rash/Hives Verified 07/19/22 21:28 aspirin Allergy does not Verified 07/19/22 21:28 take r/t hx of nasal polyps cefuroxime Allergy pancreatiti Verified 07/19/22 21:28 s clavulanic acid Allergy Rash/Hives Verified 07/19/22 21:28 [From Augmentin] NSAIDS (Non-Steroidal Allergy states was Verified 07/19/22 21:28 Anti-Inflamma told never to take Physical Exam Vitals: Vital Signs Temp Pulse Resp BP BP Pulse Ox 07/20/22 20:00 97.8 F 64 20 125/61 95 07/20/22 19:00 63 12 116/76 92 L 07/20/22 18:00 75 18 112/70 94 L 07/20/22 17:00 61 13 116/74 90 L 07/20/22 16:00 61 11 L 121/79 94 L 07/20/22 15:00 61 16 120/78 94 L 07/20/22 14:00 13 07/20/22 10:00 61 12 100/70 94 L 07/20/22 09:00 66 24 100/70 94 L 07/20/22 08:00 97.7 F 62 20 97/67 95 07/20/22 07:00 61 12 115/87 94 L 07/20/22 06:00 62 16 120/67 92 L 07/20/22 05:00 59 L 14 113/73 95 07/20/22 04:00 98.1 F 61 12 120/65 95 07/20/22 03:00 67 15 112/86 92 L 07/20/22 02:00 61 12 129/67 95 07/20/22 01:00 71 22 126/69 94 L 07/20/22 00:00 69 14 126/69 94 L 07/19/22 23:19 98.3 F 68 12 124/72 95 07/19/22 22:46 98.3 F 12 124/72 07/19/22 21:06 97.1 F L 78 20 158/83 100 Intake and Output 07/20/22 07/20/22 07/20/22 06:59 14:59 22:59 Intake Total 600 321 500 Output Total 1999 246 275 Balance -1400 -204 225 Intake: IV 600 271 300 Sodium Chloride 0.9% 1, 600 115 300 000 ml @ 50 mls/hr IV . Q20H [facility] Rx#:[id number] Oral 50 200 Output: Urine 2000 525 275 Other: Voiding Method Urinal Urinal Toilet # Voids 1 Weight 83.4 kg Results CBC & Chem 7: 07/20/22 00:30 07/20/22 00:35 Labs: Abnormal Lab Results - Last 24 Hours (Table) 07/19/22 07/19/22 07/19/22 Range/Units 21:27 21:27 23:17 WBC 11.4 H (3.8-10.6) k/uL RBC (4.30-5.90) m/uL Hgb (13.0-17.5) gm/dL Hct (39.0-53.0) % Neutrophils # 8.1 H (1.3-7.7) k/uL Monocytes # 1.3 H (0-1.0) k/uL Sodium (137-145) mmol/L Potassium 5.2 H (3.5-5.1) mmol/L BUN 35 H (9-20) mg/dL Glucose 112 H (74-99) mg/dL POC Glucose (mg/dL) 127 H (70-110) mg/dL Calcium (8.4-10.2) mg/dL Magnesium 2.8 H (1.6-2.3) mg/dL ALT 59 H (4-49) U/L TSH (0.465-4.680) mIU/L 07/20/22 07/20/22 Range/Units 00:30 00:35 WBC (3.8-10.6) k/uL RBC 3.97 L (4.30-5.90) m/uL Hgb 12.4 L (13.0-17.5) gm/dL Hct 38.4 L (39.0-53.0) % Neutrophils # 8.3 H (1.3-7.7) k/uL Monocytes # (0-1.0) k/uL Sodium 136 L (137-145) mmol/L Potassium (3.5-5.1) mmol/L BUN 33 H (9-20) mg/dL Glucose 104 H (74-99) mg/dL POC Glucose (mg/dL) (70-110) mg/dL Calcium 8.2 L (8.4-10.2) mg/dL Magnesium (1.6-2.3) mg/dL ALT (4-49) U/L TSH 5.560 H (0.465-4.680) mIU/L Thrombosis Risk Factor Assmnt - Choose All That Apply Any of the Below Risk Factors Present?: No Other Risk Factors: No Thrombosis Risk Factor Assessment Level: Very Low Risk
[2022-07-21 12:26] VITALS: TEMP 98.7
--- NOTE | 2022-07-21 13:48 | PN ---
PROGRESS NOTE SUBJECTIVE: Mr. Montanez is a gentleman, who came with syncope and sinus arrest yesterday. He is doing well this morning. He underwent dual-chamber pacemaker performed by me. The pacemaker site is clean and dry with some old blood. No drainage. No significant hematoma. He is doing well. He is using the pacemaker about 30% of the time. The device has been interrogated. There are good sensitivities and thresholds noted and also impedance. The patient's chest x-ray revealed no complications. He is doing well this morning. This gentleman has history of previous lung cancer and left lower lobectomy. He also has [id number] aortic stenosis and hypertension. He seems to be doing very well. Chest x-ray this morning is unremarkable. No pneumothorax. OBJECTIVE: VITAL SIGNS: Stable. Blood pressure is about 108/60. Pulse rate is about 66, sinus. HEART: S1 and S2 heard normally. Short systolic murmur noted. Pacemaker site is clean and dry with no fresh discharge. LUNGS: Clear. ABDOMEN: Unremarkable. LOWER EXTREMITIES: Unremarkable. PLAN: To discharge the patient today, and he will see Dr. Foster in 1 week. Advised not to use his left arm too much, especially in extreme outstretched positions. The patient will be discharged today. MMODL / IJN: [id number] /
[2022-07-21] MEDS: SODIUM CHLORIDE 0.9% 1,000 ML IV SCH (14:14)
--- NOTE | 2022-07-21 14:34 | P.DS ---
Providers Date of admission: 07/19/22 22:05 Expected date of discharge: 07/21/22 Attending physician: Darrel Patrick Consults: 07/19/22 22:03 Consult Physician Stat Consulting Provider: Chepe Foster Consult Reason/Comments: Syncope, asystolic pauses Do you want consulting provider notified?: Already Contacted Primary care physician: Darrel Patrick Hospital Course: HISTORY OF PRESENT ILLNESS: This is an 81-year-old male one of my patient with a previous medical history significant for hypertension and hypertensive cardio vascular disease, hyperlipidemia, moderate persistent asthma, enlarged prostate, malignant neoplasm of the lung, patient was in his usual state of health until about Tuesday when he woke up in the morning and he was feeling a bit dizzy and he was feeling extremely fatigued and tired at that time he did not do anything but he ended up sleeping most of the day, he woke up at 5:00 in the afternoon and he had something to eat, and all of a sudden he became quite dizzy and diaphoretic, he had contacted his niece who is a nurse practitioner who came down to check on him and she asked him to possibly go to the ER for evaluation, patient did have some issues with his left shoulder on and off. For which she underwent the intra-articular steroid injection through [facility] about a week ago, patient tried to stand up to go to the bathroom and tried to change his night clothes and suddenly he passed out he was out for about 5 minutes 911 was called and the patient was brought into the ER at [facility] while his admission. He did have sinus arrest and he passed out multiple times, patient was placed on transcutaneous pacer and the cardiology consultation was obtained, he was taken to the label cutter underwent temporary transvenous pacemaker placement and he was admitted to the ICU, and the later today he ended up going for a permanent pacemaker placement that was done by Dr. JEREMY Monsivais. 07/21: Patient remains in the ICU and is been seen this morning by cardiology and cleared for discharge. His heart rate has been running in the 60s to 80s, blood pressure is soft at 96/56, pulse ox 94% on room air. TSH was 5.56 and free T4 0.94. Fluoroscope Operator or to the patient on levothyroxine. Chest x-ray this morning reveals suggestion of mild subsegmental atelectasis left base. Left- sided pacemaker appears stable. Echocardiogram reveals normal left ventricle size and systolic function. Mild to moderate aortic stenosis with mean gradient of 17 mmHg, mild mitral and aortic and tricuspid regurgitation. Patient will be discharged home today in stable condition. DISCHARGE DIAGNOSES 1. Sinus arrest with recurrent syncopal episode. Post permanent pacemaker placement. 2. Hypertension and hypertensive cardiovascular disease. 3. Hyperlipidemia. 4. Chronic obstructive pulmonary disease and moderate persistent asthma. 5. Enlarged prostate. 6. Mitral regurgitation. Greater than 35 minutes was utilized and coordinating patient's discharge. Impression and plan of care have been directed as dictated by the signing physician. Radha Connor nurse practitioner acting as scribe for signing physician. Patient Condition at Discharge: Stable Plan - Discharge Summary Discharge Rx Participant: No New Discharge Prescriptions: New Levothyroxine Sodium [Synthroid] 25 mcg PO DAILY@0630 #30 tab Continue Multivitamins, Thera [Multivitamin (formulary)] 1 tab PO DAILY Furosemide 40 mg PO HS Vit C/E/Zn/Coppr/Lutein/Zeaxan [Preservision Areds 2 Softgel] 1 cap PO BID oxyCODONE-APAP 10-325MG [Percocet 10-325 mg] 1 tab PO TID PRN PRN Reason: Pain Montelukast [Singulair] 10 mg PO HS Atorvastatin [Lipitor] 20 mg PO HS EPINEPHrine (Auto Inject) [Epipen] 0.3 mg IM ONCE PRN #2 pen PRN Reason: Anaphylaxis Benralizumab [Fasenra] 30 mg SQ Q60D Zinc Gluconate [Zinc] 50 mg PO DAILY Cetirizine HCl [Zyrtec] 10 mg PO HS predniSONE [Deltasone] 10 mg PO DAILY Aspirin EC [Ecotrin Low Dose] 81 mg PO DAILY Vitamin B Complex 1 cap PO DAILY Cholecalciferol [Vitamin D3 (10 Mcg = 400 Iu)] 10 mcg PO DAILY Ascorbic Acid [Vitamin C] 500 mg PO DAILY Albuterol Inhaler [Ventolin Hfa Inhaler] 2 puff INHALATION RT-Q6H PRN PRN Reason: Shortness Of Breath Discontinued Enalapril [Vasotec] 5 mg PO DAILY Discharge Medication List Furosemide 40 mg PO HS 09/08/15 [History] Multivitamins, Thera [Multivitamin (formulary)] 1 tab PO DAILY 09/08/15 [History] Vit C/E/Zn/Coppr/Lutein/Zeaxan [Preservision Areds 2 Softgel] 1 cap PO BID 09/08/15 [History] Montelukast [Singulair] 10 mg PO HS 11/08/15 [History] oxyCODONE-APAP 10-325MG [Percocet 10-325 mg] 1 tab PO TID PRN 11/08/15 [History] Atorvastatin [Lipitor] 20 mg PO HS 01/24/17 [History] EPINEPHrine (Auto Inject) [Epipen] 0.3 mg IM ONCE PRN #2 pen 03/31/19 [Rx] Benralizumab [Fasenra] 30 mg SQ Q60D 04/04/19 [History] Albuterol Inhaler [Ventolin Hfa Inhaler] 2 puff INHALATION RT-Q6H PRN 07/19/22 [History] Ascorbic Acid [Vitamin C] 500 mg PO DAILY 07/19/22 [History] Aspirin EC [Ecotrin Low Dose] 81 mg PO DAILY 07/19/22 [History] Cetirizine HCl [Zyrtec] 10 mg PO HS 07/19/22 [History] Cholecalciferol [Vitamin D3 (10 Mcg = 400 Iu)] 10 mcg PO DAILY 07/19/22 [History] Vitamin B Complex 1 cap PO DAILY 07/19/22 [History] Zinc Gluconate [Zinc] 50 mg PO DAILY 07/19/22 [History] predniSONE [Deltasone] 10 mg PO DAILY 07/19/22 [History] Levothyroxine Sodium [Synthroid] 25 mcg PO DAILY@0630 #30 tab 07/21/22 [Rx] Follow up Appointment(s)/Referral(s): Darrel Patrick MD [Primary Care Provider] - 1 Week Patient Instructions/Handouts: Pacemaker (DC)
== END 2022-07-21 15:27 | disposition home or self-care (01) | DRG 244 ==
LOC: EC 20:58 → 3SCARD 22:05 → 2SICU 22:43
PROVIDERS: ADMIT Internal Medicine; ATTEND Internal Medicine
PROC: 5A1223Z Performance of Cardiac Pacing, Continuous (ICD-10-PCS; principal; 2022-07-19 22:27)
PROC: 0JH606Z Insertion of Pacemaker, Dual Chamber into Chest Subcutaneous Tissue and Fascia, Open Approach (ICD-10-PCS; 2022-07-20)
PROC: 02H63JZ Insertion of Pacemaker Lead into Right Atrium, Percutaneous Approach (ICD-10-PCS; 2022-07-20)
PROC: 02HK3JZ Insertion of Pacemaker Lead into Right Ventricle, Percutaneous Approach (ICD-10-PCS; 2022-07-20)
DX: I48.91 Unspecified atrial fibrillation (principal); I45.5 Other specified heart block; I45.10 Unspecified right bundle-branch block; I34.0 Nonrheumatic mitral (valve) insufficiency; J45.50 Severe persistent asthma, uncomplicated; M19.90 Unspecified osteoarthritis, unspecified site; J33.8 Other polyp of sinus; Z86.19 Personal history of other infectious and parasitic diseases; I10 Essential (primary) hypertension; J44.9 Chronic obstructive pulmonary disease, unspecified; E78.5 Hyperlipidemia, unspecified; I08.3 Combined rheumatic disorders of mitral, aortic and tricuspid valves; R01.1 Cardiac murmur, unspecified; N40.0 Benign prostatic hyperplasia without lower urinary tract symptoms; R55 Syncope and collapse; Z79.899 Other long term (current) drug therapy; Z79.82 Long term (current) use of aspirin; Z87.11 Personal history of peptic ulcer disease; Z85.118 Personal history of other malignant neoplasm of bronchus and lung; Z96.652 Presence of left artificial knee joint; Z88.1 Allergy status to other antibiotic agents; Z88.6 Allergy status to analgesic agent; Z87.891 Personal history of nicotine dependence
CPT/HCPCS: 33208; 33210; 36415; 71045; 71046; 80048; 80053; 83735; 83880; 84439; 84443; 84484; 85025; 85610; 85730; 93005; 93306; 99291

== ENCOUNTER → 2023-01-19 | Outpatient (CLI) | payer MEDICARE, BC ==
[2023-01-19 13:37] LABS: African American GFR (CKD) 84 (>60 ml/min/1.73 sqM); Blood Urea Nitrogen 17 mg/dL (9-20); Non-African American GFR(CKD) 73 (>60 ml/min/1.73 sqM)
--- NOTE | 2023-01-23 17:52 | CT ---
EXAMINATION TYPE: CT lumbar spine wo/w con DATE OF EXAM: 01/19/2023 COMPARISON: Abdomen pelvis CT 05/21/2017 HISTORY: 82-year-old male M5 4.50, chronic back pain and sciatica TECHNIQUE: Contiguous axial scanning of the lumbar spine performed without and with IV Contrast, sowmya ent injected with 100 mL of Isovue 300. Coronal and sagittal reconstructions performed. CT DLP: 2524.2 mGycm Automated exposure control for dose reduction was used. FINDINGS: Vertebral body heights are preserved. Advanced multilevel degenerative disc disease and endplate spondylosis is present. Changes are progre ssed above the patient's L4-L5 posterior fusion. There is now severe degenerative disc disease L2-L3 and L3-L4 and progressive moderate degenerative disc disease L-1-L2. Progression to degenerative interbody ankylosis T12-L1. Prominent grade 1 retrolisthesis above the patient's fusion at L2-L3 and L3-L4. Changes result in moderate to severe focal spinal canal stenosis L2-L3 and possibly moderate at L3-L4 . Mild T12-L1 and L1-L2. On the right, changes resulting in severe neuroforaminal stenosis at L2-L3. Moderate neuroforaminal s tenoses at L3-L4 and L4-L5. Mild to moderate at L5-S1. On the left, changes result in moderate to severe neuroforaminal stenosis at L5-S1 and T12-L1. Modera te at L2-L3, L3-L4, L4-L5. Degenerative bony ankylosis left SI joint. IMPRESSION: 1. REDEMONSTRATED POSTERIOR LUMBAR FUSION L4-L5. 2. THERE IS PROGRESSIVE SEVERE DISC/ENDPLATE DEGENERATIVE CHANGE ESPECIALLY ABOVE THE FUSION AT L2-L3 AND L3-L4. 3. PROGRESSION TO A DEGENERATIVE INTERBODY ANKYLOSIS ACROSS T12-L1. 4. Degenerative grade 1 retrolisthesis redemonstrated L2-L3 and L3-L4. 5. Changes result in a moderate to severe focal spinal canal stenosis at L2-L3 and possibly moderate at L3-L4. 6. Variable neural foraminal stenoses as outlined above.
== END | disposition home or self-care (01) ==
LOC: RADCTMAIN 12:51
PROVIDERS: ATTEND Psychiatry & Neurology Neurology
DX: M43.16 Spondylolisthesis, lumbar region (principal); M48.061 Spinal stenosis, lumbar region without neurogenic claudication; M43.26 Fusion of spine, lumbar region; M45.4 Ankylosing spondylitis of thoracic region
CPT/HCPCS: 82565; 84520; 72133; 36415; Q9967

== ENCOUNTER 2023-02-22 10:06 | Day surgery (SDC) | payer MEDICARE, BC ==
[~2023-02-22 10:06] MED LIST changes: +LACTATED RINGERS 1,000 ML IV SCH; -SODIUM CHLORIDE 0.9% 250 ML IV ONE
[2023-02-22] MEDS ORDERED: LACTATED RINGERS 1,000 ML IV ONE (12:01)
[2023-02-22 12:26] LABS: Glucose,Whole Blood 83 mg/dL (70-110)
[2023-02-22 12:38] VITALS: TEMP 97
[2023-02-22] MEDS ORDERED: PROPOFOL 10 MG/ML 20 ML VIAL IV ONE (13:10)
--- NOTE | 2023-02-22 13:29 | P.PCN ---
Date of Procedure: 02/22/23 Procedure(s) Performed: BRIEF HISTORY: Patient is a 82-year-old pleasant white male scheduled for an elective colonoscopy as a part of screening for colon cancer/positive cologuard PROCEDURE PERFORMED: Colonoscopy with snare polypectomy PREOPERATIVE DIAGNOSIS: Screening for colon cancer/positive cologuard. IV sedation per Anesthesia. PROCEDURE: After informed consent was obtained, the patient, was brought into the endoscopy unit. IV sedation was administered by Anesthesia under continuous monitoring. Digital rectal examination was normal. Initially the Olympus CF-160 flexible video colonoscope was then inserted in the rectum, gradually advanced into the cecum without any difficulty. Careful examination was performed as the scope was gradually being withdrawn. Ileocecal valve and the appendiceal orifice were visualized and appeared normal. Prep was fair.. Mucosa of the cecum, ascending colon, appeared normal. In the transverse colon there was a 7 mm polyp that was removed by snare polypectomy. In the descending colon there was an 8 mm polyp removed by snare polypectomy. Rest of the transverse colon, descending colon, sigmoid colon, and rectum appeared normal. Scattered sigmoid diverticulosis. Retroflexion was performed in the rectum and no lesions were seen. The patient tolerated the procedure well. IMPRESSION: 7 mm proximal transverse colon polyp status post polypectomy 8 mm descending colon polyp status post snare polypectomy Scattered sigmoid diverticulosis RECOMMENDATIONS: Findings of this examination were discussed with the patient as well as his family. He was advised to follow with the biopsy results. If the biopsy results and have a repeat colonoscopy in 3 years..
[2023-02-22 13:48] VITALS: BP 146/82; PULSE 108; RESP 16
== END 2023-02-22 14:04 | disposition home or self-care (01) ==
LOC: ORWHC2ENDO 10:06
PROVIDERS: ATTEND Internal Medicine Gastroenterology
DX: Z12.11 Encounter for screening for malignant neoplasm of colon (principal); D12.3 Benign neoplasm of transverse colon; K57.30 Diverticulosis of large intestine without perforation or abscess without bleeding; R19.5 Other fecal abnormalities; I48.91 Unspecified atrial fibrillation; I10 Essential (primary) hypertension; E78.5 Hyperlipidemia, unspecified; E07.9 Disorder of thyroid, unspecified; M19.90 Unspecified osteoarthritis, unspecified site; Z95.0 Presence of cardiac pacemaker; Z96.652 Presence of left artificial knee joint; Z98.890 Other specified postprocedural states; Z85.118 Personal history of other malignant neoplasm of bronchus and lung; Z79.890 Hormone replacement therapy; Z79.52 Long term (current) use of systemic steroids; Z79.51 Long term (current) use of inhaled steroids; Z79.899 Other long term (current) drug therapy
CPT/HCPCS: 88305; 45385; J2704

== ENCOUNTER → 2023-05-17 | Outpatient (CLI) | payer MEDICARE, BC ==
--- NOTE | 2023-05-17 11:16 | XR ---
EXAMINATION TYPE: XR chest 2V DATE OF EXAM: 05/17/2023 10:46 AM CLINICAL INDICATION:Male, 82 years old with history of R05.1 ACUTE COUGH; [facility] COMPARISON: Chest radiographs from 07/21/2022. TECHNIQUE: XR chest 2V Frontal and lateral views of the chest. FINDINGS: Lungs/Pleura: There is no evidence of pleural effusion, focal consolidation, or pneumothorax. Pulmonary vascularity: Unremarkable. Heart/mediastinum: Cardiomediastinal silhouette is unremarkable. Two lead cardiac conduction device o verlying the left hemithorax with lead tips projecting over the right ventricle and right atrium. Musculoskeletal: No acute osseous pathology. IMPRESSION: No acute cardiopulmonary disease/process.
== END | disposition home or self-care (01) ==
LOC: RADXRMAIN 10:27
PROVIDERS: ATTEND Internal Medicine
DX: R05.1 Acute cough (principal)
CPT/HCPCS: 71046

== ENCOUNTER → 2023-11-18 | Outpatient (CLI) | payer MEDICARE, BC ==
[2023-11-18 11:40] LABS: African American GFR (CKD) 59 (>60 ml/min/1.73 sqM); Blood Urea Nitrogen 24 mg/dL (9-20); Non-African American GFR(CKD) 51 (>60 ml/min/1.73 sqM)
--- NOTE | 2023-11-18 16:37 | CT ---
EXAMINATION TYPE: CT urogram wo/w con CT DLP: 3900 mGycm, Automated exposure control for dose reduction was used. DATE OF EXAM: 11/18/2023 12:20 PM COMPARISON: CT lumbar spine 01/19/2023, PET CT 05/28/2017, CT abdomen and pelvis 05/21/2012, CT chest CLINICAL INDICATION:Male, 83 years old with history of N28.89 L RENAL MASS; [facility], left renal mass TECHNIQUE: Urogram of the abdomen and pelvis was performed before and after the administration of 100 cc of IV c ontrast Isovue 300 contrast. Delayed imaging was performed. Coronal and sagittal reformats were perfo rmed. One or more CT dose reduction strategies were utilized during this examination. FINDINGS: GENITOURINARY: RIGHT KIDNEY AND URETER: No calculi. No hydronephrosis or hydroureter. Increased size of right upper pole intrinsic hyperattenuating renal mass measuring 3.2 cm, previously 2.1 cm (series 3, image 53). No significant contrast enhancement. Right inferior kidney 9 mm nonenhancing cyst. No urothelial lesi ons: no filling defect, dilation, stricture or wall thickening. LEFT KIDNEY AND URETER: No calculi. No hydronephrosis or hydroureter. Increased size of medial anteri or left mid kidney 3.7 cm intrinsic hyperattenuating renal mass, previously 2.5 cm (series 3, image 4 7). No definitive contrast enhancement identified. There are 2 new additional subcentimeter left peggy l intrinsic hyperattenuating lesions within the cortex of the left kidney (series 3, image 43 and 53) Left upper pole cortical subcentimeter cyst. No urothelial lesions: no filling defect, dilation, str icture or wall thickening. URINARY BLADDER: Moderately well distended. Normal, no calculi, mass or other lesions. REPRODUCTIVE: Prostate calcifications. ABDOMEN LIVER: Unremarkable. GALLBLADDER AND BILE DUCTS: Unremarkable PANCREAS: Pancreatic head fatty infiltration. SPLEEN: Stable lobulated appearance of the spleen. ADRENAL GLANDS: Unremarkable. STOMACH AND BOWEL: Small hiatal hernia. Scattered colonic diverticulosis without evidence for acute d iverticulitis. No evidence of bowel obstruction. PERITONEUM: No evidence of pneumoperitoneum, free fluid, or adenopathy. VASCULATURE: Atherosclerotic calcifications are present throughout the abdominal aorta and its branch es. No abdominal aortic aneurysm. Moderate stenosis at the origin of the SMA secondary to calcified p laque. MUSCULOSKELETAL: No acute osseous abnormalities. Postsurgical changes from posterior fusion with lami nectomy involving L4-L5. Grade 1 anterolisthesis of L4 and L5. Mild retrolisthesis of L2 on L3. Parti al fusion of the T12-L1 vertebral bodies. Moderate multilevel degenerative disc disease. Degenerative bony ankylosis left SI joint. SOFT TISSUE/ABDOMINAL WALL: Fat filled right inguinal hernia. Patulous left inguinal ring. LOWER CHEST: Stable bilateral lower lobe linear scarring. Cardiomegaly. Trace pericardial effusion. A ortic valvular calcifications. Partial visualization of right ventricular pacemaker lead. IMPRESSION: 1. Increased size of bilateral intrinsic hyperattenuating renal lesions with 2 new left cortical subc entimeter renal lesions from prior CT 05/21/2017. No gross evidence of enhancement however intrinsic h yperattenuation limits dilation. Etiologies include proteinaceous/hemorrhagic cysts versus renal cell carcinoma versus adenomas versus oncocytomas. Further evaluation with MR abdomen with IV contrast (r enal mass protocol) is recommended. 2. No evidence of urolithiasis. 3. Colonic diverticulosis without evidence for acute diverticulitis. 4. Right fat filled inguinal hernia redemonstrated. [facility], , 11/18/2023 4:35 PM
== END | disposition home or self-care (01) ==
LOC: RADCTMAIN 10:55
PROVIDERS: ATTEND Internal Medicine
DX: N28.89 Other specified disorders of kidney and ureter
CPT/HCPCS: 36415; 74178; 74400; 82565; 84520